=== PATIENT | female | born 1965 | race Caucasian/White ===

== ENCOUNTER 2018-09-05 11:32 | Inpatient (IN) | payer MEDICAID ==
[~2018-09-05] VITALS: Ht 160 cm; Wt 93.9 kg
--- NOTE | 2018-09-05 11:43 | NUR ---
PT AMBULATES TO BED 8
--- NOTE | 2018-09-05 11:45 | NUR ---
C/O FEVER & COUGH X 2 WEEKS. SEEN AT ER [facility] 4 DAYS AGO GOT PHENERGAN , PREDNISONE & IBUPROFEN . PT STATED MED DON'T HELP & C/O LEFT EAR & LEFT NECK PAIN. MED HX: DENIES
[2018-09-05 12:04] VITALS: BP 122/74
--- NOTE | 2018-09-05 12:11 | NUR ---
Patient being evaluated by physician at bedside.
[2018-09-05] MEDS ORDERED: NACL 0.9% 1,000 ML IV SCH (12:16)
[2018-09-05] MEDS ORDERED: ALBUTEROL 0.083% 2.5 MG/3 ML NEBU INH ONE (12:20)
[2018-09-05] MEDS ORDERED: IPRATROPIUM 0.02% 0.5 MG/2.5 ML NEBU INH ONE (12:20)
[2018-09-05] MEDS ORDERED: ACETAMINOPHEN 325 MG TAB PO ONE (12:40)
--- NOTE | 2018-09-05 12:52 | NUR ---
LAB AT BEDSIDE.
[2018-09-05 13:17] LABS: BASOPHILS % (AUTO) 0.3 % (0.0-2.0); HEMATOCRIT 46.3 % (36-48); HEMOGLOBIN 15.3 g/dL (12.0-16.0); LYMPHOCYTES # (AUTO) 2.1 K/uL (2.5-16.5); LYMPHOCYTES % (AUTO) 22.8 % (20.5-51.1); MEAN CORPUSCULAR HEMOGLOBIN 29 pg (27-31); MEAN CORPUSCULAR HGB CONC 33 g/dL (33-37); MEAN CORPUSCULAR VOLUME 86.8 fL (80-94); MONOCYTES # (AUTO) 0.5 K/uL (0.8-1.0); MONOCYTES % (AUTO) 5.8 % (1.7-9.3); NEUTROPHILS # (AUTO) 6.6 K/uL (1.8-7.7); NEUTROPHILS % (AUTO) 71.1 % (42.2-75.2); PLATELET COUNT (AUTO) 169 K/uL (140-450); RED BLOOD CELL COUNT(AUTO) 5.34 MIL/uL (4.20-5.40); RED CELL DISTRIBUTION WIDTH 14.2 % (11.6-13.7); WHITE BLOOD COUNT (AUTO) 9.2 K/uL (4.8-10.8)
[2018-09-05 13:28] LABS: ANION GAP 12.3 (8-16); CARBON DIOXIDE 29.4 mmol/L (21-32); CREATININE 0.9 mg/dL (0.6-1.3); POTASSIUM 3.7 mmol/L (3.5-5.1)
[2018-09-05 13:29] LABS: PROTHROMBIN TIME 9.9 secs (10.8-13.4)
--- NOTE | 2018-09-05 13:30 | NUR ---
T102.9, PULSE OX 90% WITH NC [address] ECHEVERRIA[address]
[2018-09-05 13:33] LABS: ALBUMIN 3.1 g/dL (3.4-5.0); TOTAL BILIRUBIN 0.7 mg/dL (0.0-1.0)
[2018-09-05 13:35] LABS: APPEARANCE,URINE HAZY (CLEAR); BILIRUBIN,URINE NEGATIVE (NEGATIVE); BLOOD, URINE NEGATIVE (NEGATIVE); COLOR,URINE ORANGE (YELLOW); LEUKOCYTE ESTERASE ,URINE NEGATIVE (NEGATIVE); NITRITE, URINE NEGATIVE (NEGATIVE); PH,URINE 7.5 (5.0-9.0); UGLUCOSE NEGATIVE (NEGATIVE)
[2018-09-05 13:40] LABS: RBC,URINE 0-5 (RARE) /HPF (0-5)
[2018-09-05 13:41] LABS: WBC,URINE 0-5 (RARE) /HPF (0-5)
[2018-09-05] MEDS ORDERED: AZITHROMYCIN 500 MG in DEXTROSE 5% 250 ML IV ONE (13:50)
[2018-09-05] MEDS ORDERED: ALBUTEROL SULFATE/IPRATROPIU 3 ML SOL IH PRN (14:00)
[2018-09-05] MEDS ORDERED: MORPHINE SULFATE 2 MG/ML SYR IVP PRN (14:00)
[2018-09-05] MEDS ORDERED: HYDROcodone/APAP 7.5/325 MG 1 TAB PO PRN (14:00)
[2018-09-05] MEDS ORDERED: ACETAMINOPHEN 325 MG TAB PO PRN (14:00)
[2018-09-05] MEDS ORDERED: cefTRIAXone 1,000 MG VIAL ONE (14:05)
[2018-09-05] MEDS ORDERED: methylPREDNISolone SS 125 MG in WATER STERILE 2 ML IM ONE (14:05)
[2018-09-05] MEDS ORDERED: AZITHROMYCIN 500 MG INJ VIAL IV ONE (14:05)
--- NOTE | 2018-09-05 14:33 | NUR ---
PT TAKEN TO TELE FLOOR BY RN JOHN AND EMT MARK ANTHONY
[2018-09-05] MEDS ORDERED: KETOROLAC 15 MG/ML VIAL IVP ONE (14:40)
[2018-09-05] MEDS ORDERED: [UNRECOGNIZED DRUG - OTHER] (14:43)
--- NOTE | 2018-09-05 14:43 | NUR ---
Patient will be admitted to care of DR DAVIS. Admited to TELE. Will go to room 120B. Belongings list completed. Report to KADI WHITLOCK.
[2018-09-05] MEDS: NACL 0.9% 1,000 ML IV SCH (14:50)
[2018-09-05 14:52] LABS: CHOL/HDL RATIO 3.3 (1-4.5); THYROID STIMULATING HORMONE 0.28 uIU/mL (0.34-3.74)
[2018-09-05 14:58] LABS: BARBITURATE, URINE NEG. ng/ml (NEG <=200); BENZODIAZEPINE, URINE NEG. ng/mL (NEG <=200); CANNABINOID, URINE NEG. ng/mL (NEG <=50); COCAINE, URINE NEG. ng/mL (NEG <=300); OPIATE, URINE NEG. ng/mL (NEG <=2000); PHENCYCLIDINE SCREEN,URINE NEG. ng/mL (NEG <=25)
[2018-09-05 15:00] VITALS: BP 100/55
[2018-09-05] MEDS ORDERED: methylPREDNISolone SS 125 MG/2 ML VIAL IVP SCH (15:00)
--- NOTE | 2018-09-05 15:00 | NUR ---
RECEIVED PT REPORT FROM ER NURSE, LIZETH. PT IS AMB WITH MIN ASSIST, AAOX4. MRSA SWAB DONE. INTRODUCED SELF, ORIENTED PATIENT AND DAUGHTER TO ROOM, UPDATED BOARD. DX: SEPSIS, PNA, HYPOXIA RESPIRATORY FAILURE. ON 3LPM VIA N/C, NO S/S OF DISTRESS AT THIS TIME. IV CATH NOTED TO THE LEFT AC, 20 GAUGE, PATENT AND INTACT. SKIN INTACT, PLACED PT ON TELE. BED IN THE LOWEST POSITION, CALL LIGHT WITHIN REACH. WILL CONTINUE TO MONITOR.
[2018-09-05] MEDS ORDERED: SODIUM PHOS / POTASSIUM PHOS 1 PKT PDR PO SCH (15:17)
--- NOTE | 2018-09-05 15:30 | NUR ---
OFFERED ARMATURE WINDER REPAIRER PHONE. PT PREFERS DAUGHTER TO TRANSLATE. ADMISSION QUESTION ANSWERED BY PT AND HER DAUGHTER. PT DENIES ANY MED HX, EX TUBAL LIGATION.
[2018-09-05] MEDS ORDERED: DEXTROSE 50% 50 ML SYR IVP PRN (15:45)
[2018-09-05] MEDS: BLOOD GLUCOSE MONITORING 1 DEV DEV FS SCH ×2 (16:06→20:25)
[2018-09-05] MEDS: SODIUM PHOS / POTASSIUM PHOS 1 PKT PDR PO SCH (17:25)
[2018-09-05] MEDS: ONDANSETRON 4 MG/2 ML VIAL IM/IVP PRN (17:58)
--- NOTE | 2018-09-05 18:20 | NUR ---
PT C/O NAUSEA, ZOFRAN GIVEN. PT DOESN'T WANT TO EAT. PROVIDED PT WITH ANOTHER FRUIT CUPS. PT ONLY ATE THE FRUITS.
--- NOTE | 2018-09-05 19:25 | NUR ---
ENDORSED PT TO POUCH MAKER RN. PT IN STABLE CONDITION.
--- NOTE | 2018-09-05 19:26 | NUR ---
RECEIVED REPORT FROM KAMLESH WALLIS FOR CONTINUITY OF CARE. PT A/OX4 ON ROOM AIR, CYPRIOT SPEAKING. PT IS ABLE TO MAKE NEEDS KNOWN, ABLE TO FOLLOW COMMANDS. PT AMBULATES WITH STEADY GAIT AND SKIN IS INTACT. PT HAS A 20G IV TO AC, ASYMPTOMATIC AND INTACT. VITAL SIGNS WITHIN NORMAL LIMITS. PT STABLE, DENIES HAVING ANY PAIN, NO SIGNS OF DISTRESS NOTED AT THIS TIME. PT POSITIONED FOR COMFORT. BED IN LOWEST POSITION, BED ALARM ON. WILL CONTINUE TO MONITOR.
[2018-09-05] MEDS: ALBUTEROL SULFATE/IPRATROPIU 3 ML SOL IH SCH (19:27)
[2018-09-05] MEDS: BUDESONIDE 0.5 MG/2 ML NEBU INH SCH (19:27)
[2018-09-05 20:00] VITALS: BP 93/56
--- NOTE | 2018-09-05 20:25 | NUR ---
CHECKED PT BLOOD SUGAR. IT IS 248, AT THIS TIME. PT REFUSES INSULIN ADMINISTRATION. EXPLAINED INSULIN WILL HELP BRING BLOOD SUGAR LEVEL BACK TO NORMAL BECAUSE IT IS ELEVATED NOW. PT THEN STATES SHE HAS BEEN EATING FRUIT JUST ABOUT 5 MINUTES AGO AND THAT IS PROBABLY THE REASON IT IS HIGH BUT THAT SHE IS NOT DIABETIC AND DOES NOT WANT TO TAKE INSULIN.
[2018-09-05] MEDS ORDERED: methylPREDNISolone SS 125 MG/2 ML VIAL IVP ONE (21:00)
--- NOTE | 2018-09-05 22:15 | NUR ---
TURNED TEMPERATURE IN ROOM DOWN BECAUSE PT WAS SWEATING AND UNCOMFORTABLE.
[2018-09-05] MEDS: methylPREDNISolone SS 125 MG/2 ML VIAL IVP SCH (23:30)
[2018-09-06] VITALS: BP 87/48
--- NOTE | 2018-09-06 | NUR ---
VITAL SIGNS WITHIN NORMAL LIMITS. PT STABLE, DENIES HAVING ANY PAIN, NO SIGNS OF DISTRESS NOTED AT THIS TIME. PT POSITIONED FOR COMFORT. BED IN LOWEST POSITION, BED ALARM ON. WILL CONTINUE TO MONITOR.
[2018-09-06] MEDS: NACL 0.9% 1,000 ML IV SCH ×3 (00:40→16:40)
[2018-09-06] MEDS ORDERED: INFLUENZA VIRUS VACCINE QUAD 0.5 ML SYR IMVAC PRN (00:50)
[2018-09-06] MEDS ORDERED: PNEUMOCOCCAL VACCINE 23 MCG/0.5 ML VIAL IMVAC PRN (00:50)
--- NOTE | 2018-09-06 02:05 | NUR ---
HELPED PT TO RESTROOM AND BACK TO BED. PT TOLERATED WELL.
[2018-09-06 04:00] VITALS: BP 88/49
[2018-09-06 06:07] LABS: HEMATOCRIT 43.8 % (36-48); HEMOGLOBIN 14.4 g/dL (12.0-16.0); MEAN CORPUSCULAR HEMOGLOBIN 29 pg (27-31); MEAN CORPUSCULAR HGB CONC 33 g/dL (33-37); MEAN CORPUSCULAR VOLUME 87.7 fL (80-94); PLATELET COUNT (AUTO) 177 K/uL (140-450); RED BLOOD CELL COUNT(AUTO) 4.99 MIL/uL (4.20-5.40); RED CELL DISTRIBUTION WIDTH 14.1 % (11.6-13.7); WHITE BLOOD COUNT (AUTO) 7.5 K/uL (4.8-10.8)
[2018-09-06 06:13] LABS: T4 (THYROXINE) 7.9 ug/dL (4.5-12.0)
[2018-09-06] MEDS: methylPREDNISolone SS 125 MG/2 ML VIAL IVP SCH (06:21)
[2018-09-06] MEDS: BLOOD GLUCOSE MONITORING 1 DEV DEV FS SCH ×4 (06:21→20:59)
--- NOTE | 2018-09-06 06:25 | NUR ---
ADMINISTERED SCHEDULED MEDICATIONS, PT TOLERATED WELL.
[2018-09-06 06:34] LABS: ANION GAP 11.5 (8-16); CARBON DIOXIDE 28.8 mmol/L (21-32); CREATININE 0.7 mg/dL (0.6-1.3); POTASSIUM 4.3 mmol/L (3.5-5.1)
[2018-09-06] MEDS: ALBUTEROL SULFATE/IPRATROPIU 3 ML SOL IH SCH ×3 (06:37→18:48)
[2018-09-06 06:44] LABS: MAGNESIUM 2.3 mg/dL (1.8-2.4); PHOSPHORUS 3.7 mg/dL (2.5-4.9)
[2018-09-06] MEDS: BUDESONIDE 0.5 MG/2 ML NEBU INH SCH ×2 (06:45→18:48)
[2018-09-06 06:49] LABS: LYMPHOCYTES % (MANUAL) 17 % (20-46); MONOCYTES % (MANUAL) 3 % (5-12)
--- NOTE | 2018-09-06 07:50 | NUR ---
ENDORSED PT TO DAY SHIFT KAMLESH SHRESTHA FOR CONTINUITY OF CARE. PT IN STABLE CONDITION. Addendum: 09/06/18 at 0750 by Marita Wilson RN ENDORSED PT TO DAY SHIFT KAMLESH SHRESTHA.
--- NOTE | 2018-09-06 07:53 | NUR ---
RECEIVED BEDSIDE REPORT FROM PRINT LINE OPERATOR RN FOR CONTINUITY OF CARE. PT A/OX4, PRIMARILY COMORAN SPEAKING. DENIES PAIN. C/O COUGH WITH SPUTUM PRODUCTION "SOMETIMES". PATIENT NOTED TO BE COUGHING EVERY MINUTE. PT STATES SHE IS UNABLE TO EAT BREAKFAST DUE TO THE COUGHING. WILL NOTIFY PER PRINT LINE OPERATOR, PT IS AMBULATORY. SKIN INTACT. LUNG SOUNDS DIMINISHED. HEART RHYTHM REGULAR. IV SITE PATENT AND ASYMPTOMATIC, INFUSING IVF PER MD ORDERS. ALL SAFETY PRECAUTIONS IN PLACE. WILL CONTINUE TO MONITOR.
[2018-09-06 08:00] VITALS: BP 97/60
--- NOTE | 2018-09-06 08:14 | NUR ---
NOTIFIED DR. BLAKELY THAT PATIENT IS COUGHING A LOT. DR. BLAKELY TO PLACE ORDERS.
--- NOTE | 2018-09-06 08:22 | NUR ---
PATIENT HAS BEEN SCREENED AND CATEGORIZED HIGH NUTRITION RISK. PATIENT WILL BE SEEN WITHIN 1-2 DAYS OF ADMISSION. 09/06/18-09/07/[address]
[2018-09-06] MEDS: methylPREDNISolone SS 40 MG/ML VIAL IVP SCH ×2 (10:01→20:46)
[2018-09-06] MEDS: SODIUM PHOS / POTASSIUM PHOS 1 PKT PDR PO SCH (10:02)
[2018-09-06] MEDS: guaiFENesin DM 200/20 MG-10 ML 10 ML UDC PO PRN (10:02)
--- NOTE | 2018-09-06 10:02 | NUR ---
ROBITUSSIN DM ADMINISTERED FOR PT C/O COUGH.
[2018-09-06] MEDS: LACTOBACILLUS RHAMNOSUS GG 1 EACH CAP PO SCH (10:03)
--- NOTE | 2018-09-06 10:06 | NUR ---
NOTIFIED RADIOLOGY THAT PATIENT ATE 95% BREAKFAST AROUND 8AM. THEY WILL GET PT FOR CT CHEST AROUND 12PM. HAVE NOTIFIED DAUGHTER AT BEDSIDE. OBTAINED CONSENT VIA DAUGHTER TRANSLATING AT BEDSIDE. PT PREFERS DAUGHTER TO TRANSLATE.
--- NOTE | 2018-09-06 10:20 | NUR ---
CALLED RT REGARDING SPUTUM INDUCTION ORDER. RT IS AWARE. EXPLAINED OBTAINING SPUTUM CULTURE PROCESS TO DAUGHTER AT BEDSIDE. DAUGHTER HAS EXPLAINED TO PATIENT.
--- NOTE | 2018-09-06 11:00 | NUR ---
PT STATES THAT COUGH IS "BETTER". INTERMITTENT COUGHING STILL PRESENT.
--- NOTE | 2018-09-06 11:39 | NUR ---
09/06/18 RD INITIAL ASSESSMENT COMPLETED PLEASE REFER TO NUTRITION ASSESSMENT UNDER CARE ACTIVITY FOR ESTIMATED NUTRITIONAL NEEDS. RD RECOMMENDATIONS: 1. CONTINUE CCHO 60 GM DIET TOLERATED 2. RECOMMEND CHANGING DIET TO HIGH FIBER REGULAR WHEN GLUCOSE LAB VALUES TREND WNL 3. RD TO FOLLOW-UP 5-7 DAYS, LOW RISK REGINA CARMICHAEL RD
[2018-09-06] MEDS: INSULIN LISPRO SLIDING SCALE 100 UNITS/ML VIAL SUBQ PRN ×3 (11:52→21:00)
[2018-09-06 12:00] VITALS: BP 96/54
--- NOTE | 2018-09-06 13:20 | NUR ---
HAD DAUGHTER INSTRUCT PT ON GIVING SPUTUM SAMPLE
[2018-09-06] MEDS ORDERED: AZITHROMYCIN 250 MG TAB PO SCH (15:00)
[2018-09-06 16:00] VITALS: BP 94/54
--- NOTE | 2018-09-06 19:15 | NUR ---
ENDORSED POC TO ELECTRONIC SCIENCE TEACHER RN. PT IN STABLE CONDITION.
--- NOTE | 2018-09-06 19:16 | NUR ---
RECEIVED BEDSIDE REPORT FROM DAY SHIFT NURSE DINO RN, PT STABLE, NO DISTRESS NOTED, IV TO L AC 20G PATENT INTACT, SL AND L HAND 22G PATENT, INTACT, INFUSING NS @ 100ML/HR, PT ON 6LPM O2 VIA OXYMIZER, NO SOB NOTED, PT SAT 88-91%, INITIAL ASSESSMENT DONE, ALL SAFETY PRECAUTION MET, CALL LIGHT WITHIN REACH, WILL CONTINUE TO MONITOR.,
--- NOTE | 2018-09-06 19:30 | NUR ---
sputum was sent to lab
--- NOTE | 2018-09-06 19:59 | NUR ---
PT PO2 89% AND PT IS TACHYPNEIC, BUT STATED HAVING NO SOB. DR. WONG NOTIFIED, STATED UNDERSTANDING, AWAITING CT, TO CONTINUE TO MONITOR PT.
[2018-09-06 20:00] VITALS: BP 106/58
--- NOTE | 2018-09-06 20:06 | NUR ---
PT LEFT UNIT TO GO TO CT, IN STABLE CONDITION.
--- NOTE | 2018-09-06 20:21 | NUR ---
PT ARRIVED BACK FROM CT IN STABLE CONDITION, WILL CONTINUE TO MONITOR.
[2018-09-06] MEDS ORDERED: methylPREDNISolone SS 40 MG/ML VIAL IVP SCH (23:00)
--- NOTE | 2018-09-06 23:40 | NUR ---
PT RESTING ON BED, NO DISTRESS NOTED, V/S TAKEN, WITHIN PT BASELINE, CALL LIGHT WITHIN REACH, WILL CONTINUE TO MONITOR.
[2018-09-07] VITALS: BP 99/48
--- NOTE | 2018-09-07 02:44 | NUR ---
CHECKED ON PT, PT STATED UNABLE TO SIT AND WANTS TO SIT AT BEDSIDE CHAIR, ASSIST PT TO BEDSIDE CHAIR, PT TOLERATED WELL, CALL LIGHT WITHIN REACH, WILL CONTINUE TO MONITOR.
[2018-09-07] MEDS: guaiFENesin DM 200/20 MG-10 ML 10 ML UDC PO PRN ×2 (03:04→20:31)
[2018-09-07 04:00] VITALS: BP 94/52
[2018-09-07] MEDS: ONDANSETRON 4 MG/2 ML VIAL IM/IVP PRN ×2 (04:10→09:02)
--- NOTE | 2018-09-07 04:11 | NUR ---
PT C/O NAUSEA, NAUSEA MEDICATION ORDERED ADMINISTERED, PT TOLERATED WELL, CALL LIGHT WITHIN REACH, WILL CONTINUE TO MONITOR.
[2018-09-07] MEDS: DOCUSATE SODIUM 100 MG GELCAP PO PRN (04:12)
[2018-09-07] MEDS: BLOOD GLUCOSE MONITORING 1 DEV DEV FS SCH ×4 (05:45→20:30)
[2018-09-07] MEDS: NACL 0.9% 1,000 ML IV SCH (06:47)
[2018-09-07 07:10] LABS: BASOPHILS % (AUTO) 0.2 % (0.0-2.0); HEMATOCRIT 40.2 % (36-48); LYMPHOCYTES # (AUTO) 1.2 K/uL (2.5-16.5); LYMPHOCYTES % (AUTO) 10.1 % (20.5-51.1); MEAN CORPUSCULAR HEMOGLOBIN 29 pg (27-31); MEAN CORPUSCULAR HGB CONC 32 g/dL (33-37); MEAN CORPUSCULAR VOLUME 88.5 fL (80-94); MONOCYTES # (AUTO) 0.7 K/uL (0.8-1.0); MONOCYTES % (AUTO) 5.7 % (1.7-9.3); NEUTROPHILS # (AUTO) 9.9 K/uL (1.8-7.7); PLATELET COUNT (AUTO) 192 K/uL (140-450); RED BLOOD CELL COUNT(AUTO) 4.55 MIL/uL (4.20-5.40); RED CELL DISTRIBUTION WIDTH 14.3 % (11.6-13.7); WHITE BLOOD COUNT (AUTO) 11.8 K/uL (4.8-10.8)
[2018-09-07] MEDS: BUDESONIDE 0.5 MG/2 ML NEBU INH SCH ×2 (07:20→19:16)
[2018-09-07] MEDS: ALBUTEROL SULFATE/IPRATROPIU 3 ML SOL IH SCH ×3 (07:20→19:18)
--- NOTE | 2018-09-07 07:20 | NUR ---
SATURATION 87% ON SUPPLEMENTAL OXYGEN AT 7 LPM VIA OXYMIZER POST [facility] THERAPY INCREASED FIO2 TO 10 LPM WEBLOGIC ADMINISTRATOR TO NOTIFY DAY/RN
[2018-09-07 07:25] LABS: ANION GAP 10.8 (8-16); CARBON DIOXIDE 26.9 mmol/L (21-32); CREATININE 0.8 mg/dL (0.6-1.3); POTASSIUM 3.7 mmol/L (3.5-5.1)
--- NOTE | 2018-09-07 07:27 | NUR ---
ENDORSED PT TO DAY SHIFT NURSE HENRIETTA WHITLOCK, PT IN STABLE CONDITION NO DISTRESS NOTED.
[2018-09-07 07:29] LABS: MAGNESIUM 2.1 mg/dL (1.8-2.4); PHOSPHORUS 3.8 mg/dL (2.5-4.9)
--- NOTE | 2018-09-07 07:30 | NUR ---
RECEIVED BEDSIDE REPORT FROM MANAGER LICENSING NURSE LUZ MARINA. PATIENT AAOX4. PATIENT ON OXYMIZER 6 L, NO DISTRESS NOTED. PATIENT AMBULATORY. IV ON LAC 20 G AND LHAND 22 G BOTH CLEAN DRY INTACT AND PATENT. INFUSING NS AT 100. SKIN INTACT. ON TELE MONITOR AND STANDARD PRECAUTIONS. BED IN LOW POSITION, CALL LIGHT WITHIN REACH. WILL CONTINUE TO MONITOR.
[2018-09-07 08:00] VITALS: BP 103/52
[2018-09-07] MEDS: LACTOBACILLUS RHAMNOSUS GG 1 EACH CAP PO SCH (08:55)
--- NOTE | 2018-09-07 09:09 | NUR ---
CALLED DR JASON BLAKELY REVIEWED REQUEST FOR SERVICE ORDER: PLEASE ASSESS PATIENTS 02 SAT SITTING, STANDING AND AMBULATING EXPLAINED TO MD THAT WE DON'T HAVE A POLICY OR DOCUMENTATION TEMPLATE REQUESTED MD TO SEND ORDER TO PHYSICAL THERAPY AND THAT THEY ARE ON FLOOR AT THIS TIME
--- NOTE | 2018-09-07 09:10 | NUR ---
ADMINISTERED SCHEDULED MEDS AND ZOFRAN PRN NAUSEA. PATIENT TOLERATED WELL. WILL CONTINUE TO MONITOR.
[2018-09-07 12:00] VITALS: BP 119/69
--- NOTE | 2018-09-07 12:00 | NUR ---
FAMILY AT BEDSIDE. ASSISTED PATIENT TO RESTROOM. PATIENT FELT TIRED AFTER RESTROOM. MADE SURE PATIENTS BREATHING WAS BACK TO NORMAL WITH NO DISTRESS. PATIENT LAID ON BED WITH HOB UP. WILL CONTINUE TO MONITOR.
[2018-09-07 16:00] VITALS: BP 102/51
[2018-09-07] MEDS ORDERED: AZITHROMYCIN 250 MG in DEXTROSE 5% 250 ML IV SCH (16:00)
--- NOTE | 2018-09-07 16:25 | NUR ---
FAMILY AT BEDSIDE. NO DISTRESS AT THIS TIME, ON OXIMIZER 10 L. WILL CONTINUE TO MONITOR.
--- NOTE | 2018-09-07 17:00 | NUR ---
EDUCATED PATIENT ON HOW TO USE INCENTIVE SPIROMETER WITH FAMILY AT BEDSIDE TRANSLATING. ANSWERED ALL QUESTIONS OF PATIENT. WILL CONTINUE TO MONITOR.
--- NOTE | 2018-09-07 17:21 | NUR ---
PATIENT AMBULATED TO BATHROOM. NOW BACK IN BED WITH NO DISTRESS NOTED W OXIMIZER AT 10 L. WILL CONTINUE TO MONITOR.
--- NOTE | 2018-09-07 19:12 | NUR ---
GAVE REPORT TO ROTARY BAR OPERATOR NURSE TAMMY. PATIENT ENDORSED IN STABLE CONDITION.
--- NOTE | 2018-09-07 19:13 | NUR ---
REPORT RECEIVED FROM AM NURSE AT BEDSIDE. PT IN STABLE CONDITION. AAOX4. INTRODUCED SELF TO PT. BOARD UPDATED. NO COMPLAINTS OF PAIN. NO SOB ON 10L O2 VIA OXIMIZER. AFEBRILE. IV SITE L HAND 22G RUNNING NS@10ML/HR TKO AND L AC 20G BOTH PATENT AND INTACT. SKIN WARM, DRY, AND INTACT WITH NO OPEN WOUNDS. BED LOCKED IN LOW POSITION. CALL AMBRIZ WITHIN REACH. SAFETY PRECAUTIONS IN PLACE.
[2018-09-07 20:00] VITALS: BP 100/44
--- NOTE | 2018-09-07 20:30 | NUR ---
ROBITUSSIN GIVEN FOR COUGH. BS 103. NO INSULIN COVERAGE NEEDED.
--- NOTE | 2018-09-07 23:30 | NUR ---
PT HAS COMPLAINTS OF TROUBLE BREATHING. MD NOTIFIED. MD ORDERED ABG ON ROOM AIR.
[2018-09-08] VITALS: BP 98/50
--- NOTE | 2018-09-08 00:15 | NUR ---
ABG DONE BY RT. CRITICAL LAB VALUES REPORTED TO MD. NEW ORDERS OF BNP AND CHEST XR TO BE DONE IN THE AM.
[2018-09-08] MEDS: ALBUTEROL SULFATE/IPRATROPIU 3 ML SOL IH PRN ×3 (00:35→23:08)
--- NOTE | 2018-09-08 01:15 | NUR ---
PT ATTEMPTING TO SLEEP AND IS AROUSABLE. NO S/S OF DISTRESS NOTED. PT BREATHING IS SLIGHTLY LABORED. MD NOTIFIED AND ORDERED A CHEST XR AND BNP FOR THE AM. WILL FOLLOW UP AFTER RESULTS. WILL CONTINUE TO MONITOR.
--- NOTE | 2018-09-08 03:30 | NUR ---
PT HAS COMPLAINTS OF DIFFICULTY BREATHING. MD NOTIFIED. ORDERED TO KEEP PATIENT SITTING UP AT 80-90 DEGREES. PT NOW IS LESS DISTRESS AFTER MD ORDERS.
[2018-09-08 04:00] VITALS: BP 104/59
[2018-09-08] MEDS: BLOOD GLUCOSE MONITORING 1 DEV DEV FS SCH ×4 (05:32→21:09)
--- NOTE | 2018-09-08 05:32 | NUR ---
BS 110. NO INSULIN COVERAGE NEEDED.
[2018-09-08 05:59] LABS: HEMATOCRIT 39.7 % (36-48); LYMPHOCYTES # (AUTO) 1.7 K/uL (2.5-16.5); LYMPHOCYTES % (AUTO) 16.6 % (20.5-51.1); MEAN CORPUSCULAR HEMOGLOBIN 29 pg (27-31); MEAN CORPUSCULAR HGB CONC 33 g/dL (33-37); MONOCYTES # (AUTO) 0.6 K/uL (0.8-1.0); MONOCYTES % (AUTO) 6.3 % (1.7-9.3); NEUTROPHILS # (AUTO) 7.8 K/uL (1.8-7.7); NEUTROPHILS % (AUTO) 77.1 % (42.2-75.2); PLATELET COUNT (AUTO) 225 K/uL (140-450); RED BLOOD CELL COUNT(AUTO) 4.51 MIL/uL (4.20-5.40); RED CELL DISTRIBUTION WIDTH 13.9 % (11.6-13.7); WHITE BLOOD COUNT (AUTO) 10.1 K/uL (4.8-10.8)
[2018-09-08] MEDS: NACL 0.9% 1,000 ML IV SCH (06:06)
[2018-09-08 06:50] LABS: ANION GAP 10.1 (8-16); CARBON DIOXIDE 29.1 mmol/L (21-32); CREATININE 0.8 mg/dL (0.6-1.3); POTASSIUM 3.2 mmol/L (3.5-5.1)
[2018-09-08 06:56] LABS: PHOSPHORUS 3.9 mg/dL (2.5-4.9)
--- NOTE | 2018-09-08 07:10 | NUR ---
REPORT GIVEN TO AM NURSE AT BEDSIDE. PT IN STABLE CONDITION.
--- NOTE | 2018-09-08 07:11 | NUR ---
RECEIVED REPORT FROM HEALTH SCIENCE WRITER NURSE. PT IN STABLE CONDITION. RESPIRATIONS EVEN AND UNLABORED. O2 OXYMIZER AT 10L. IV INTACT AND PATENT. SAFETY MEASURES IN PLACE. BED IN LOW POSITION. BED ALARM ON. CALL LIGHT AT BEDSIDE. WILL CONTINUE TO MONITOR.
[2018-09-08] MEDS: BUDESONIDE 0.5 MG/2 ML NEBU INH SCH ×2 (07:30→19:34)
[2018-09-08] MEDS: ALBUTEROL SULFATE/IPRATROPIU 3 ML SOL IH SCH ×4 (07:30→19:34)
[2018-09-08 08:00] VITALS: BP 105/56
[2018-09-08] MEDS: guaiFENesin DM 200/20 MG-10 ML 10 ML UDC PO PRN ×3 (08:15→23:31)
--- NOTE | 2018-09-08 08:15 | NUR ---
GAVE GUAIFENESIN (PRN ORDER) FOR COUGH AT PT REQUEST. WILL CONTINUE TO MONITOR.
--- NOTE | 2018-09-08 08:52 | NUR ---
ASSISTED PT WITH BEDPAN. O2 SAT DROPPED TO 86% UPON MOVEMENT THEN BACK UP TO 92 AFTER RESTING. PT IN STABLE CONDITION. WILL CONTINUE TO MONITOR.
[2018-09-08] MEDS ORDERED: POTASSIUM CHLORIDE 40 MEQ, LIDOCAINE MPF 1% - 5 mL VIAL 25 MG in NACL 0.9% 250 ML IV ONE (10:35)
--- NOTE | 2018-09-08 10:44 | NUR ---
ASSISTED PT WITH BEDPAN. O2 SAT DROPPED TO 85% UPON MOVEMENT THEN BACK UP TO 92 AFTER RESTING. PT IN STABLE CONDITION. WILL CONTINUE TO MONITOR.
[2018-09-08] MEDS ORDERED: POTASSIUM CHLORIDE 40 MEQ, LIDOCAINE 1% 25 MG in NACL 0.9% 250 ML IV ONE (10:45)
[2018-09-08] MEDS: LACTOBACILLUS RHAMNOSUS GG 1 EACH CAP PO SCH (10:56)
[2018-09-08 12:00] VITALS: BP 123/70
--- NOTE | 2018-09-08 12:23 | NUR ---
PT LYING IN BED IN STABLE CONDITION. FAMILY AT BEDSIDE. WILL CONTINUE TO MONITOR. BED IN LOW POSITION.
[2018-09-08] MEDS: PIPER/TAZO 3.375GM/D5W PREMIX 50 ML IV SCH ×2 (12:47→18:16)
[2018-09-08] MEDS: ONDANSETRON 4 MG/2 ML VIAL IM/IVP PRN (12:47)
--- NOTE | 2018-09-08 13:21 | NUR ---
GOT SOME QUOTES FOR OXYGEN FOR HOME FOR PRIVATE PAY.. [facility] [phone]. TO RENT THE CONCENTRATOR IS $250 DEPOSIT AND THEN $250/MO. FOR TANK, $75 DEPOSIT AND $75 /MO. REFILL FOR TANK $23 OR DELIVERED $32. [facility], [place] [phone] CONCENTRATOR $150/MO INCLUDING 1 TANK $10.00 FOR EACH ADDITIONAL TANK. [facility], DOESN'T SERVICE THIS AREA LEFT MESSAGE WITH [facility].[phone].
--- NOTE | 2018-09-08 14:40 | NUR ---
ASSISTED PT TO RESTROOM WITH O2 EXTENSION TUBING. PT TOLERATED WELL. PT IN STABLE CONDITION. WILL CONTINUE TO MONITOR.
[2018-09-08 16:00] VITALS: BP 120/73
--- NOTE | 2018-09-08 16:36 | NUR ---
REPOSITIONED, PT TOLERATED WELL. WILL CONTINUE TO MONITOR. BED IN LOW POSITION.
--- NOTE | 2018-09-08 18:24 | NUR ---
ASSISTED PT WITH BEDPAN. PT IN STABLE CONDITION. WILL CONTINUE TO MONITOR.
--- NOTE | 2018-09-08 19:25 | NUR ---
GAVE REPORT TO DATABASE REPORT WRITER NURSE FOR CONTINUITY OF CARE. PT IN STABLE CONDITION.
--- NOTE | 2018-09-08 19:25 | NUR ---
RECEIVED BEDSIDE REPORT FROM KAMLESH JACOBSON, PATIENT IN BED, ON OXYMIZER 9 L, LUNG SOUNDS DIMINISHED, IV IN LEFT HAND 22 G, INFUSING K AT 68 ML/HR. GB 123, V/S TAKEN ALL WITHIN BASELINE, FAMILY AT BEDSIDE QUESTIONS ANSWERED. EXPLAINED PLAN OF CARE UPDATED BORED WILL CONTINUE TO MONITOR.
[2018-09-08 20:00] VITALS: BP 123/70
--- NOTE | 2018-09-08 21:00 | NUR ---
K COMPLETED, IVF NS INFUSING AT 10 ML/HR.
--- NOTE | 2018-09-08 22:00 | NUR ---
PATIENT REQUEST SOMETHING TO SLEEP, SPOKE WITH DR WONG, STATED CANT GIVE ANYTHING DUE TO COMPROMISED RESP SYSTEM. PATIENT VERBALIZED UNDERSTANDING.
[2018-09-08] MEDS: AZITHROMYCIN 250 MG in DEXTROSE 5% 250 ML IV SCH (23:30)
--- NOTE | 2018-09-08 23:32 | NUR ---
PATIENT C/O COUGH WILL GIVE ROBITUSSIN. PATIENT AWARE OF NEEDED SPUTUM SAMPLE. WILL GIVE PATIENT ROCEPHIN AND WILL HANG ZITHROMAX AFTER ROCEPHIN COMPLETED. V/S TAKEN ALL WITHIN BASELINE.
[2018-09-08] MEDS ORDERED: cefTRIAXone 1,000 MG VIAL ONE (23:37)
[2018-09-09] VITALS: BP 125/60
--- NOTE | 2018-09-09 01:10 | NUR ---
GIVING DUE ZITHROMAX, WASTED 250 MG OUT OF 500 MG VIAL.
[2018-09-09] MEDS ORDERED: AZITHROMYCIN 500 MG INJ VIAL IV ONE (01:12)
--- NOTE | 2018-09-09 02:15 | NUR ---
PATIENT C/O FEELING NAUSEOUS WILL GIVE ZOFRAN.
[2018-09-09] MEDS: ONDANSETRON 4 MG/2 ML VIAL IM/IVP PRN ×4 (02:17→21:12)
--- NOTE | 2018-09-09 02:27 | NUR ---
SPUTUM SAMPLE COLLECTED AND SENT TO LAB.
[2018-09-09] MEDS: ALBUTEROL SULFATE/IPRATROPIU 3 ML SOL IH PRN (03:03)
--- NOTE | 2018-09-09 03:52 | NUR ---
R/T AT BEDSIDE, O2SAT WENT DOWN TO LOW 80'S, R/T PLACED PATIENT ON NON-REBREATHER MASK AT 15 L/MIN, PATIENT O2SAT 99%.
[2018-09-09 04:00] VITALS: BP 140/70
--- NOTE | 2018-09-09 04:01 | NUR ---
0350 PT SATS DROPPED TO 87 88%. INCREASED OXYMIZER TO 15L. NOT MUCH IMPROVEMENT WITH SATS. CHANGED TO NRB MASK AT 15L. SATS IMPROVED TO 97 TO 98%.
[2018-09-09] MEDS: NACL 0.9% 1,000 ML IV SCH (05:04)
[2018-09-09] MEDS: guaiFENesin DM 200/20 MG-10 ML 10 ML UDC PO PRN (06:05)
--- NOTE | 2018-09-09 06:08 | NUR ---
PATIENT C/O COUGH GAVE ROBITUSSIN. BG 108
[2018-09-09] MEDS: BLOOD GLUCOSE MONITORING 1 DEV DEV FS SCH ×4 (06:10→20:08)
[2018-09-09] MEDS: ALBUTEROL SULFATE/IPRATROPIU 3 ML SOL IH SCH ×4 (06:40→18:45)
[2018-09-09] MEDS: BUDESONIDE 0.5 MG/2 ML NEBU INH SCH ×2 (06:49→18:45)
[2018-09-09 07:14] LABS: BASOPHILS % (AUTO) 0.1 % (0.0-2.0); EOSINOPHILS % (AUTO) 0.1 % (0.0-4.0); HEMATOCRIT 41.2 % (36-48); HEMOGLOBIN 13.4 g/dL (12.0-16.0); LYMPHOCYTES # (AUTO) 1.3 K/uL (2.5-16.5); LYMPHOCYTES % (AUTO) 12.6 % (20.5-51.1); MEAN CORPUSCULAR HEMOGLOBIN 29 pg (27-31); MEAN CORPUSCULAR HGB CONC 33 g/dL (33-37); MEAN CORPUSCULAR VOLUME 87.9 fL (80-94); MONOCYTES # (AUTO) 0.5 K/uL (0.8-1.0); MONOCYTES % (AUTO) 4.5 % (1.7-9.3); NEUTROPHILS # (AUTO) 8.5 K/uL (1.8-7.7); NEUTROPHILS % (AUTO) 82.7 % (42.2-75.2); PLATELET COUNT (AUTO) 255 K/uL (140-450); RED BLOOD CELL COUNT(AUTO) 4.69 MIL/uL (4.20-5.40); RED CELL DISTRIBUTION WIDTH 14.1 % (11.6-13.7); WHITE BLOOD COUNT (AUTO) 10.2 K/uL (4.8-10.8)
[2018-09-09 07:28] LABS: ANION GAP 10.9 (8-16); CARBON DIOXIDE 27.3 mmol/L (21-32); CREATININE 0.6 mg/dL (0.6-1.3); POTASSIUM 3.2 mmol/L (3.5-5.1)
--- NOTE | 2018-09-09 07:37 | NUR ---
ENDORSED PT TO DAY SHIFT RN, PATIENT STABLE.
--- NOTE | 2018-09-09 07:40 | NUR ---
RECEIVED BEDSIDE REPORT FROM HOSPITAL AIDES AND ASSISTANTS TEACHER NURSE. PT IS AOX4. DENIES PAIN. C/O MINIMAL COUGHS. PT IS ON NONREBREATHER MASK 15L/MIN. RESPIRATION IS EVEN AND UNLABORED, SPO2 96%. IV ON L HAND 22G, INTACT AND PATENT, INFUSING PER MD ORDER. IV SITE IS CLEAN AND DRY. PT IS ABLE TO AMBULATE WITH ONE PERSON ASSIST. SKIN DRY, CLEAN AND INTACT. DISCUSSED PLAN OF CARE WITH PATIENT AND DAUGHTER, BOTH VERBALIZED UNDERSTANDING. SAFETY MEASURES ARE IN PLACE. BED IN HIGH-MICHAEL'S POSITION, AND CALL LIGHT WITHIN REACH.
[2018-09-09 07:57] LABS: MAGNESIUM 2.2 mg/dL (1.8-2.4); PHOSPHORUS 3.7 mg/dL (2.5-4.9)
[2018-09-09 08:00] VITALS: BP 99/47
--- NOTE | 2018-09-09 08:19 | NUR ---
PT C/O OF NAUSEA AND VOMITING. MEDICATED WITH PRN ZOFRAN. PT TOLERATED WELL. DAUGHTER REMAINS AT BEDSIDE.
--- NOTE | 2018-09-09 09:07 | NUR ---
CHANGE PT TO 50% VENTURI MASK SPO2 92-94
[2018-09-09] MEDS: LACTOBACILLUS RHAMNOSUS GG 1 EACH CAP PO SCH (09:22)
--- NOTE | 2018-09-09 09:23 | NUR ---
ADMINISTERED MED PER MD ORDER. PT TOLERATED WELL. PT IS ON VENTURI MASK, SPO2 91%. IS AT BEDSIDE.
--- NOTE | 2018-09-09 09:35 | NUR ---
CHANGED PT'S SOILED LINENS AND CHANGED PT INTO CLEAN YELLOW GROWN AND YELLOW SOCKS. NOTIFIED VEHICLE WASHER THAT PT IS STEADY IS UNSTEADY. INITIALED FALL PRECAUTION. POSTED SIGN AND TURNED ON BED ALARM. INSTRUCTED PT TO USE THE CALL LIGHT FOR ANY ASSISTANCE.
[2018-09-09] MEDS: guaiFENesin/CODEINE 100/10MG 5 ML UDC PO PRN ×2 (10:58→17:40)
--- NOTE | 2018-09-09 11:00 | NUR ---
PT C/O OF COUGHING FREQUENTLY. ADMINISTERED PRN ROBITUSSIN/CODEINE MED ORDER. PT TOLERATED WELL. IS AT BEDSIDE.
[2018-09-09 12:00] VITALS: BP 101/62
[2018-09-09] MEDS ORDERED: POTASSIUM CHLORIDE 40 MEQ, LIDOCAINE 1% 25 MG in NACL 0.9% 250 ML IV ONE (12:00)
--- NOTE | 2018-09-09 12:37 | NUR ---
CHECKED POTASSIUM LAB 3.2 PRIOR TO ADMINISTER. ADMINISTERED POTASSIUM IVPB PER MD ORDER. PATIENT IS RESTING AND IS AT BEDSIDE.
--- NOTE | 2018-09-09 13:40 | NUR ---
PT C/O FEELING NAUSEA AND VOMITING. ADMINISTERED PRN ZOFRAN VIA IVP.
[2018-09-09 16:00] VITALS: BP 114/71
--- NOTE | 2018-09-09 17:15 | NUR ---
PATIENT IS RESTING ON BED. NO SIGNS OF DISTRESS NOTED. IS AT BEDSIDE.
--- NOTE | 2018-09-09 19:00 | NUR ---
RECEIVED PATIENT ON VENTURI MASK AT 50% FIO2. PULSE OX SAT 95%. FAMILY AT BEDSIDE. SCHEDULED BREATHING TREATMENTS ADMINISTERED. TOLERATED TREATMENTS WELL, NO ADVERSE SIDE EFFECTS. ORAL RINSE PERFORMED POST TREATMENT. RETURNED PATIENT TO 50% VENTURI MASK. NO RESPIRATORY DISTRESS NOTED AT THIS TIME. WILL CONTINUE TO MONITOR.
--- NOTE | 2018-09-09 19:25 | NUR ---
GAVE BEDSIDE REPORT TO CYLINDER INSPECTOR AND TESTER NURSE FOR CONTINUITY OF CARE. PT IS IN STABLE CONDITION.
--- NOTE | 2018-09-09 19:30 | NUR ---
RECEIVED BEDSIDE REPORT FROM DAY SHIFT RN, PATIENT IN BED, ON VENTURI MASK AT 15 L/MIN, LUNG SOUNDS DIMINISHED, IV IN LEFT HAND 22 G, INFUSING NS AT 10 ML/HR. BG 144 NO COVERAGE NEEDED V/S TAKEN BP 103/86 HR 82 DENIES PAIN, FAMILY AT BEDSIDE QUESTIONS ANSWERED. PATIENT REQUESTED ZOFRAN FOR NAUSEA, PATIENT FEELS CONSTIPATED WILL GIVE COLACE. DR MCDONOUGH AT BEDSIDE. EXPLAINED PLAN OF CARE UPDATED BORED WILL CONTINUE TO MONITOR.
[2018-09-09 20:00] VITALS: BP 103/86
[2018-09-09] MEDS: DOCUSATE SODIUM 100 MG GELCAP PO PRN (21:12)
--- NOTE | 2018-09-09 21:12 | NUR ---
GAVE ZOFRAN FOR NAUSEA AND COLACE FOR CONSTIPATION.
[2018-09-10] VITALS: BP 105/80
[2018-09-10] MEDS: guaiFENesin/CODEINE 100/10MG 5 ML UDC PO PRN ×3 (00:03→17:50)
[2018-09-10] MEDS: AZITHROMYCIN 250 MG in DEXTROSE 5% 250 ML IV SCH ×2 (00:04→23:28)
--- NOTE | 2018-09-10 00:19 | NUR ---
CALL FROM LAB IN [place] STATING WE NEED NEW SPUTUM, NOTIFIED PATIENT. CALLED RT O2SAT WENT TO 82% ON 15 L/MIN VIA VENTURI MASK. RT WILL COME CHECK ON PATIENT. GAVE DUE MEDICATIONS AND ROBITUSSIN FOR COUGH.
--- NOTE | 2018-09-10 00:30 | NUR ---
CALLED TO BEDSIDE BY RN PER PATIENT DESATURATING. CALLED AND SPOKE TO DR. LEI REGARDING USE OF CPAP. CPAP ORDERED PLACED BY MD. PLACED PATIENT ON CPAP 6, RATE 14, FIO2 AT 40%. SKIN PROTECTIVE BARRIER IN PLACE. SKIN INTACT. FAMILY AT BEDSIDE. HEART RATE 76. PULSE OX SAT 93%. WILL CONTINUE TO MONITOR.
--- NOTE | 2018-09-10 01:00 | NUR ---
SPUTUM SAMPLE COLLECTED AND SENT TO LAB. PATIENT ON CPAP O2SAT 92%.
--- NOTE | 2018-09-10 02:40 | NUR ---
O2SAT AT 97% ON CPAP, PATIENT CALM IN BED, NO SIGNS OF RESPIRATORY DISTRESS.
[2018-09-10 04:00] VITALS: BP 101/60
--- NOTE | 2018-09-10 04:00 | NUR ---
V/S TAKEN O2SAT 97 %
[2018-09-10] MEDS: NACL 0.9% 1,000 ML IV SCH (06:12)
[2018-09-10] MEDS: ALBUTEROL SULFATE/IPRATROPIU 3 ML SOL IH SCH ×3 (06:33→18:43)
--- NOTE | 2018-09-10 06:33 | NUR ---
rec'd pt on coco v60 settings cpap 5 rr 14 fio2 40% alarms on and audible ambu bag at hob i\l tx given with duoneb 3ml and pulmicort 0.5mg with no adverse reaction post tx b\s are diminished bilaterally pt is awake and alert. changed pt to venti mask at 50%
[2018-09-10] MEDS: BUDESONIDE 0.5 MG/2 ML NEBU INH SCH ×2 (06:42→18:43)
[2018-09-10] MEDS: BLOOD GLUCOSE MONITORING 1 DEV DEV FS SCH ×4 (06:52→20:47)
--- NOTE | 2018-09-10 06:52 | NUR ---
BG 88 NO COVERAGE NEEDED
--- NOTE | 2018-09-10 07:28 | NUR ---
ENDORSED PATIENT TO DAY SHIFT NURSE, PATIENT STABLE.
--- NOTE | 2018-09-10 07:30 | NUR ---
PATIENT WAS AWAKE, ALERT. RESPIRATION EVEN, LABOR ON VENTURI MASK, SPO2 87-89%. PATIENT DENIED SOB. RT WAS MADE AWARE. MD WAS AT BEDSIDE. SKIN DRY AND WARM. IV PATENT AND INTACT. PLAN OF CARE WAS DISCUSSED WITH PATIENT. BED AT LOW POSITION, SIDE RAILS UP. CALL LIGHT WITHIN REACH
[2018-09-10 08:00] VITALS: BP 96/57
[2018-09-10 08:18] LABS: ANION GAP 7.8 (8-16); CARBON DIOXIDE 26.8 mmol/L (21-32); CREATININE 0.6 mg/dL (0.6-1.3); POTASSIUM 3.6 mmol/L (3.5-5.1)
[2018-09-10 08:23] LABS: MAGNESIUM 2.5 mg/dL (1.8-2.4); PHOSPHORUS 3.9 mg/dL (2.5-4.9)
[2018-09-10 08:30] LABS: BASOPHILS # (AUTO) 0.1 K/uL (0.00-0.22); BASOPHILS % (AUTO) 0.5 % (0.0-2.0); EOSINOPHILS # (AUTO) 0.2 K/uL (0-0.4); EOSINOPHILS % (AUTO) 1.2 % (0.0-4.0); HEMATOCRIT 41.2 % (36-48); HEMOGLOBIN 13.3 g/dL (12.0-16.0); LYMPHOCYTES # (AUTO) 2.1 K/uL (2.5-16.5); MEAN CORPUSCULAR HEMOGLOBIN 29 pg (27-31); MEAN CORPUSCULAR HGB CONC 32 g/dL (33-37); MEAN CORPUSCULAR VOLUME 88.5 fL (80-94); MONOCYTES # (AUTO) 0.7 K/uL (0.8-1.0); MONOCYTES % (AUTO) 5.2 % (1.7-9.3); NEUTROPHILS # (AUTO) 10.5 K/uL (1.8-7.7); PLATELET COUNT (AUTO) 245 K/uL (140-450); RED BLOOD CELL COUNT(AUTO) 4.65 MIL/uL (4.20-5.40); RED CELL DISTRIBUTION WIDTH 14.5 % (11.6-13.7); WHITE BLOOD COUNT (AUTO) 13.6 K/uL (4.8-10.8)
[2018-09-10] MEDS: DOCUSATE SODIUM 100 MG GELCAP PO PRN (08:42)
[2018-09-10] MEDS: LACTOBACILLUS RHAMNOSUS GG 1 EACH CAP PO SCH (08:42)
[2018-09-10 08:50] LABS: LYMPHOCYTES % (AUTO) 15.7 % (20.5-51.1); NEUTROPHILS % (AUTO) 77.4 % (42.2-75.2)
--- NOTE | 2018-09-10 11:14 | NUR ---
PATIENT'S SPO2 DROPPED TO 89% ON BIPAP FIO2 40%. RT WAS MADE AWARE.
--- NOTE | 2018-09-10 11:14 | NUR ---
CALLED TO PTS ROOM PT DESAT TO 88% BIPAP CHANGES MADE 14\7 FIO2 50% RN GURPREET AT BEDSIDE
--- NOTE | 2018-09-10 11:15 | NUR ---
PATIENT WAS ENCOURAGED TO KEEP THE BIPAP MASK ON LONG TOLERATED DUE TO DESATURATION. PATIENT AND FAMILY VERBALIZED UNDERSTANDING
[2018-09-10 12:00] VITALS: BP 103/61
--- NOTE | 2018-09-10 12:00 | NUR ---
PATIENT BLOOD SUGAR WAS 75. ORANGE JUICE WAS GIVEN TO THE PATIENT. PATIENT REQUESTED TO HAVE THE MASK TAKEN OFF SO THAT SHE CAN EAT. RT WAS MADE AWARE.
--- NOTE | 2018-09-10 12:31 | NUR ---
took pt off bipap to eat rn saroj notified placed on venti mask at 50%
--- NOTE | 2018-09-10 13:41 | NUR ---
PATIENT WAS AWAKE. RESPIRATION EVEN, UNLABOR ON VENTURI MASK, SPO2 93%. PATIENT DENIED SOB AT THIS TIME. FAMILY AT BEDSIDE. CALL LIGHT WITHIN REACH
[2018-09-10] MEDS: ONDANSETRON 4 MG/2 ML VIAL IM/IVP PRN (13:53)
--- NOTE | 2018-09-10 13:56 | NUR ---
PATIENT COMPLAINED OF FEELING NAUSEOUS. MED WAS GIVEN PER ORDER
[2018-09-10 16:00] VITALS: BP 96/56
--- NOTE | 2018-09-10 16:00 | NUR ---
PATIENT WAS AWAKE, ALERT. RESPIRATION EVEN, UNLABOR ON VENTURI MASK 50%. DENIED SOB, PAIN AT THIS TIME. NO DISTRESS NOTED. FAMILY AT BEDSIDE. CALL LIGHT WITHIN REACH
--- NOTE | 2018-09-10 17:00 | NUR ---
PATIENT WAS SLEEPING COMFORTABLY. NO DISTRESS NOTED AT THIS TIME. FAMILY IS AT BEDSIDE.
--- NOTE | 2018-09-10 18:00 | NUR ---
PATIENT WAS AWAKE, ALERT. RESPIRATION EVEN, UNLABOR ON VENTURI MASK 50%. COMPLAINED OF COUGH. MED WAS GIVEN PER ORDER. NO DISTRESS NOTED AT THIS TIME
--- NOTE | 2018-09-10 19:23 | NUR ---
ENDORSEMENT GIVEN TO PHYSICIAN PRIMARY CARE SPORTS MEDICINE NURSE. PATIENT IS STABLE AT THIS TIME
--- NOTE | 2018-09-10 19:24 | NUR ---
RECEIVED REPORT FROM KAMLESH VÁZQUEZ FOR CONTINUITY OF CARE. PT A/OX4 ON 15L VENTURI MASK 50%, PERSIAN SPEAKING. PT IS ABLE TO MAKE NEEDS KNOWN, ABLE TO FOLLOW COMMANDS. PT AMBULATES WITH STEADY GAIT AND SKIN IS INTACT. PT HAS A 22G IV TO LEFT HAND, ASYMPTOMATIC AND INTACT. VITAL SIGNS WITHIN NORMAL LIMITS. PT STABLE, DENIES HAVING ANY PAIN, NO SIGNS OF DISTRESS NOTED AT THIS TIME. PT POSITIONED FOR COMFORT. BED IN LOWEST POSITION, BED ALARM ON. WILL CONTINUE TO MONITOR.
[2018-09-10 20:00] VITALS: BP 97/56
--- NOTE | 2018-09-10 20:35 | NUR ---
PT BLOOD SUGAR IS 116, NO INSULIN COVERAGE NECESSARY.
--- NOTE | 2018-09-10 22:15 | NUR ---
CLEANED PT AND BED WHILE PT USED BEDSIDE COMMODE, THEN ASSISTED HER BACK TO BED.
[2018-09-10] MEDS: ALBUTEROL SULFATE/IPRATROPIU 3 ML SOL IH PRN (23:04)
--- NOTE | 2018-09-10 23:10 | NUR ---
PT IS NOW ON BIPAP.
[2018-09-11] VITALS: BP 105/58
--- NOTE | 2018-09-11 02:30 | NUR ---
NO SIGNS OF DISTRESS NOTED AT THIS TIME. PT POSITIONED FOR COMFORT. BED IN LOWEST POSITION, BED ALARM ON. WILL CONTINUE TO MONITOR.
--- NOTE | 2018-09-11 03:18 | NUR ---
REMOVED PATIENT FROM FROM BIPAP AND PLACED BACK ON VENTURI 50%. SAO2 AT 92%. NO SOB OR DISTRESS.
[2018-09-11 04:00] VITALS: BP 112/59
--- NOTE | 2018-09-11 05:22 | NUR ---
HELPED PT TO BEDSIDE COMMODE AND BACK TO BED.
[2018-09-11] MEDS: NACL 0.9% 1,000 ML IV SCH (06:17)
[2018-09-11] MEDS: BLOOD GLUCOSE MONITORING 1 DEV DEV FS SCH ×4 (06:33→21:02)
[2018-09-11] MEDS: ALBUTEROL SULFATE/IPRATROPIU 3 ML SOL IH SCH ×3 (06:55→19:46)
[2018-09-11] MEDS: BUDESONIDE 0.5 MG/2 ML NEBU INH SCH ×2 (07:03→19:47)
--- NOTE | 2018-09-11 07:10 | NUR ---
RECEIVED REPORT FROM DEPUTY HEAD RN SHERRIE FOR CONTINUITY OF CARE. PT IS AAOX4, ON 15L VENTURI MASK 50%. PT IS ABLE TO MAKE NEEDS KNOWN, ABLE TO FOLLOW COMMANDS. PT AMBULATES WITH STEADY GAIT AND SKIN IS INTACT. PT HAS A 22G IV TO LEFT HAND, ASYMPTOMATIC AND INTACT. DENIES PAIN. NO S/S OF ACUTE DISTRESS NOTED AT THIS TIME. BED IN LOWEST POSITION, CALL LIGHT WITHIN REACH. WILL CONTINUE TO MONITOR.
--- NOTE | 2018-09-11 07:30 | NUR ---
attempted to decrease fio2 to 40% venturi desated to 84 returned .50 ventuir spo2 93
--- NOTE | 2018-09-11 07:32 | NUR ---
ENDORSED PT TO DAY SHIFT RN KADI FOR CONTINUITY OF CARE. PT IN STABLE CONDITION.
[2018-09-11 07:47] LABS: BASOPHILS % (AUTO) 0.3 % (0.0-2.0); EOSINOPHILS # (AUTO) 0.3 K/uL (0-0.4); HEMOGLOBIN 12.2 g/dL (12.0-16.0); LYMPHOCYTES # (AUTO) 1.3 K/uL (2.5-16.5); LYMPHOCYTES % (AUTO) 9.3 % (20.5-51.1); MEAN CORPUSCULAR HEMOGLOBIN 28 pg (27-31); MEAN CORPUSCULAR HGB CONC 32 g/dL (33-37); MEAN CORPUSCULAR VOLUME 88.1 fL (80-94); MONOCYTES # (AUTO) 0.8 K/uL (0.8-1.0); MONOCYTES % (AUTO) 5.5 % (1.7-9.3); NEUTROPHILS # (AUTO) 11.6 K/uL (1.8-7.7); NEUTROPHILS % (AUTO) 82.9 % (42.2-75.2); PLATELET COUNT (AUTO) 292 K/uL (140-450); RED BLOOD CELL COUNT(AUTO) 4.31 MIL/uL (4.20-5.40)
[2018-09-11 08:00] VITALS: BP 94/54
[2018-09-11] MEDS: guaiFENesin/CODEINE 100/10MG 5 ML UDC PO PRN ×3 (08:17→20:42)
[2018-09-11 08:39] LABS: ANION GAP 9.7 (8-16); CARBON DIOXIDE 29.1 mmol/L (21-32); CREATININE 0.7 mg/dL (0.6-1.3); POTASSIUM 3.8 mmol/L (3.5-5.1)
[2018-09-11 08:47] LABS: MAGNESIUM 2.3 mg/dL (1.8-2.4); PHOSPHORUS 3.7 mg/dL (2.5-4.9)
[2018-09-11] MEDS: LACTOBACILLUS RHAMNOSUS GG 1 EACH CAP PO SCH (09:48)
--- NOTE | 2018-09-11 11:10 | NUR ---
HELPED PT TO BEDSIDE COMMODE AND BACK TO BED. Addendum: 09/11/18 at 1320 by Alin Cunha RN ALL BED LINENS WERE CHANGED BY BRIMMER BLOCKER.
[2018-09-11 12:00] VITALS: BP 108/60
--- NOTE | 2018-09-11 15:05 | NUR ---
PT'S C/O FEVER, CHECK ORAL TEMP 99.7, APPLIED ICE PACK TO NECK.
[2018-09-11 16:00] VITALS: BP 101/49
--- NOTE | 2018-09-11 16:35 | NUR ---
REMIND RT SUNSHINE ABOUT SPUTUM INDUCTION ORDER. SUNSHINE SAID IT'S TOO BUSY RIGHT NOW, WILL ENDORSE TO CARDIOVASCULAR RN.
[2018-09-11] MEDS: BENZOCAINE/MENTHOL 1 LOZ MM PRN (17:49)
--- NOTE | 2018-09-11 19:25 | NUR ---
ENDORSE PT TO RESEARCH PROGRAM MANAGER RN. PT IN STABLE CONDITION.
[2018-09-11 20:00] VITALS: BP 108/58
--- NOTE | 2018-09-11 20:00 | NUR ---
RECEIVED REPORT FROM SHERRIE WHITLOCK, PT ON BED, AAOX4, VITAL SIGNS STABLE, ON VENTURI MASK 505 FI02, OCCASIONAL COUGH NOTED, DENIES ANY PAIN, IVF INFUSING WELL AT 10ML/H, PLAN OF CARE DISCUSSED, SAFETY MEASURES IN PLACE, CALL LIGHT WITHIN REACH.
--- NOTE | 2018-09-11 20:05 | NUR ---
RECEIVED PATIENT ON VENTURI MASK AT 50% FIO2. SCHEDULED BREATHING TREATMENTS ADMINISTERED. TOLERATED TREATMENTS WELL. NO ADVERSE SIDE EFFECTS. ORAL RINSE DONE POST TREATMENT. PLACED PATIENT BACK ON VENTURI MASK AT 50% FIO2. NO RESPIRATORY DISTRESS NOTED AT THIS TIME. WILL CONTINUE TO MONITOR.
--- NOTE | 2018-09-11 21:40 | NUR ---
ASSISTED TO BEDSIDE COMMODE AND VOIDED FREELY, ALL NEEDS ATTENDED.
[2018-09-11] MEDS: AZITHROMYCIN 250 MG in DEXTROSE 5% 250 ML IV SCH (22:39)
[2018-09-12] VITALS: BP 96/48
--- NOTE | 2018-09-12 | NUR ---
PT SLEEPING, EASILY AROUSABLE, VITAL SIGNS TAKEN, BP ON THE LOW SIDE BUT STABLE, NO DISTRESS NOTED, IVF INFUSING WELL, CONTINUE TO MONITOR CLOSELY.
--- NOTE | 2018-09-12 02:30 | NUR ---
PT WITH EPISODE OF INCONTINENCE, BED LINEN CHANGED, SOB ON EXERTION NOTED, MAINTAINED HOB ON FOWLERS POSITION, MONITORED CLOSELY.
[2018-09-12 04:00] VITALS: BP 91/52
[2018-09-12] MEDS: guaiFENesin/CODEINE 100/10MG 5 ML UDC PO PRN ×3 (04:13→20:29)
[2018-09-12] MEDS: DOCUSATE SODIUM 100 MG GELCAP PO PRN (04:25)
--- NOTE | 2018-09-12 04:25 | NUR ---
MEDICATED PRN FOR COUGH, NO BM FOR SEVERAL DAYS, MEDICATED WITH COLACE PRN FOR CONSTIPATION, CONTINUE TO MONITOR CLOSELY.
--- NOTE | 2018-09-12 05:40 | NUR ---
PT SLEEPING, EASILY AROUSABLE, BLOOD SUGAR CHECKED WITH 94 RESULT, NO SOB NOTED, SAT-96% ON CONTINUOS PULSE OX, CONTINUE TO MONITOR CLOSELY.
[2018-09-12] MEDS: ALBUTEROL SULFATE/IPRATROPIU 3 ML SOL IH SCH ×3 (06:19→18:50)
[2018-09-12] MEDS: BUDESONIDE 0.5 MG/2 ML NEBU INH SCH (06:27)
[2018-09-12] MEDS: BLOOD GLUCOSE MONITORING 1 DEV DEV FS SCH ×4 (06:31→20:34)
[2018-09-12] MEDS: NACL 0.9% 1,000 ML IV SCH ×2 (06:40→15:10)
[2018-09-12] MEDS: BENZOCAINE/MENTHOL 1 LOZ MM PRN ×5 (06:42→23:28)
--- NOTE | 2018-09-12 07:18 | NUR ---
PT AWAKE, NO DISTRESS NOTED, REPORT GIVEN TO KAMLESH WALLIS FOR CONTINUITY OF CARE.
--- NOTE | 2018-09-12 07:20 | NUR ---
RECEIVED REPORT FROM ASSOCIATE PROFESSOR OF ECONOMICS RN FOR CONTINUITY OF CARE. PT IS AAOX4, ON 15L VENTURI MASK 50%. PT IS ABLE TO MAKE NEEDS KNOWN, ABLE TO FOLLOW COMMANDS. PT AMBULATES WITH ASSISTANCE AND SKIN IS INTACT. PT HAS A 22G IV TO LEFT HAND, ASYMPTOMATIC AND INTACT, TKO 10ML/HR. DENIES PAIN. NO S/S OF ACUTE DISTRESS NOTED AT THIS TIME. BED IN LOWEST POSITION, CALL LIGHT WITHIN REACH. WILL CONTINUE TO MONITOR.
[2018-09-12 08:00] VITALS: BP 95/50
[2018-09-12 08:32] LABS: MAGNESIUM 2.3 mg/dL (1.8-2.4); PHOSPHORUS 4.3 mg/dL (2.5-4.9)
[2018-09-12 08:35] LABS: HEMATOCRIT 43.4 % (36-48); MEAN CORPUSCULAR HEMOGLOBIN 29 pg (27-31); MEAN CORPUSCULAR HGB CONC 32 g/dL (33-37); MEAN CORPUSCULAR VOLUME 88.9 fL (80-94); PLATELET COUNT (AUTO) 236 K/uL (140-450); RED BLOOD CELL COUNT(AUTO) 4.89 MIL/uL (4.20-5.40); RED CELL DISTRIBUTION WIDTH 13.9 % (11.6-13.7); WHITE BLOOD COUNT (AUTO) 11.2 K/uL (4.8-10.8)
[2018-09-12] MEDS: LACTOBACILLUS RHAMNOSUS GG 1 EACH CAP PO SCH (09:14)
[2018-09-12 09:27] LABS: EOSINOPHILS % (MANUAL) 4 % (0-4); LYMPHOCYTES % (MANUAL) 12 % (20-46); MONOCYTES % (MANUAL) 8 % (5-12)
[2018-09-12 09:40] LABS: POTASSIUM 4.6 mmol/L (3.5-5.1)
[2018-09-12 09:41] LABS: ANION GAP 9.8 (8-16); CARBON DIOXIDE 29.8 mmol/L (21-32); CREATININE 0.7 mg/dL (0.6-1.3)
--- NOTE | 2018-09-12 10:55 | NUR ---
ENCOURAGED PT TO DO INCENTIVE SPIROMETER 5 TIMES EVERY HOUR. PT VERBALIZED UNDERSTANDING. RETURN DEMO WAS DONE. PT REACHED 800ML.
[2018-09-12] MEDS ORDERED: BISACODYL 10 MG SUPP RC SCH (10:58)
[2018-09-12 12:00] VITALS: BP 93/49
--- NOTE | 2018-09-12 12:30 | NUR ---
ASKED PT FOR ANOTHER SPUTUM SAMPLE WITHOUT SALIVA, HOWEVER, PT GAVE A SAMPLE STILL HAS A LOT SALIVA. GAVE PT ANOTHER SPECIMEN COLLECTION CONTAINER.
[2018-09-12] MEDS ORDERED: SIMETHICONE 80 MG TAB.CHEW PO SCH (13:56)
--- NOTE | 2018-09-12 15:20 | NUR ---
PT REFUSED FLEET ENEMA, WANTS TO TRY BEDSIDE COMMODE AGAIN. HELPED PT TO BEDSIDE COMMODE. PT HAD BM, BUT ONLY TINY AMOUNT. ASKED PT TO TRY FLEET ENEMA JOHN, PT AGREES.
[2018-09-12 16:00] VITALS: BP 97/60
--- NOTE | 2018-09-12 19:10 | NUR ---
ENDORSED PT TO AUTOMOBILE SERVICE ADVISOR RN. PT IN STABLE CONDITION.
[2018-09-12 20:00] VITALS: BP 101/56
--- NOTE | 2018-09-12 20:00 | NUR ---
BLOOD SUGAR CHECKED WITH 152 RESULT, REFUSED INSULIN COVERAGE, PT REFUSED ALSO FLEET ENEMA, RISK AND BENEFITS EXPLAINED BUT STILL REFUSING, PT REQUESTING FOR PRUNE JUICE FOR CONSTIPATION, PROVIDED PRUNE JUICE X2, ALL NEEDS ATTENDED.
--- NOTE | 2018-09-12 20:30 | NUR ---
COUGH MEDICATION GIVEN PRN FOR COUGH, MAINTAIN HOB ON HIGH FOWLERS POSITION, ALL NEEDS ATTENDED.
--- NOTE | 2018-09-12 21:30 | NUR ---
PT ASSISTED TO BEDSIDE COMMODE TO TRY TO HAVE BM, VOIDED BUT NO BM, PROVIDED WITH ANOTHER PRUNE JUICE, MONITORED CLOSELY
[2018-09-12] MEDS: AZITHROMYCIN 250 MG in DEXTROSE 5% 250 ML IV SCH (22:39)
[2018-09-13] VITALS: BP 99/57
--- NOTE | 2018-09-13 01:21 | NUR ---
ROUNDS MADE, PT SAT 84-86% WHEN SLEEPING, EASILY AROUSABLE, SAT WENT UP TO 89-92% WHEN AWAKE, MAINTAIN HOB ELEVATED, NO SOB BUT WITH COUGH NOTED, WILL MEDICATE WITH COUGH MEDICATION PRN, MONITORED CLOSELY.
--- NOTE | 2018-09-13 02:02 | NUR ---
PT SLEEPING, SAT-92%, NO DISTRESS NOTED, MONITORED CLOSELY.
[2018-09-13] MEDS: guaiFENesin/CODEINE 100/10MG 5 ML UDC PO PRN ×3 (02:45→22:59)
--- NOTE | 2018-09-13 03:50 | NUR ---
PT WITH EPISODE OF INCONTINENCE OF URINE, PERINEAL CARE DONE, VITALS SIGNS STABLE, MONITORED CLOSELY.
[2018-09-13 04:00] VITALS: BP 97/60
--- NOTE | 2018-09-13 05:50 | NUR ---
BLOOD SUGAR CHECKED WITH 95 RESULT, NO COVERAGE NEEDED, PT STILL REFUSING FLEET ENEMA AT THIS TIME, PRUNE JUICE X2 PROVIDED, SPUTUM SPECIMEN SENT TO LAB FOR TEST, NO DISTRESS NOTED, MONITORED CLOSELY.
[2018-09-13] MEDS: BLOOD GLUCOSE MONITORING 1 DEV DEV FS SCH ×4 (06:34→20:52)
--- NOTE | 2018-09-13 07:10 | NUR ---
PT AWAKE, NO DISTRESS NOTED, BEDSIDE REPORT GIVEN TO RN JACOB FOR CONTINUITY OF CARE.
--- NOTE | 2018-09-13 07:11 | NUR ---
RECEIVED BEDSIDE REPORT FROM WINDOWS SOFTWARE DEVELOPER NURSE. PATIENT IS AWAKE, ALERT AND ORIENTEDX4. NO SIGNS OF DISTRESS ON VENTURI MASK 50%. SKIN IS INTACT. IV ON L HAND 22G INFUSING NS AT 25, CLEAN, DRY AND INTACT. PATIENT IS CONTINENT. BEDSIDE COMMODE AT BEDSIDE. FALL RISK PROTOCOL D/T WEAKNESS AND MULTIPLE LINES, IV LINES, TELE MONITOR, VENTURI MASK, [id number]. AMBULATE W ASSIST. LBM 09/12 BUT IT WAS SMALL [place], PATIENT STILL FEELS CONSTIPATED. BED IN LOW POSITION. CALL LIGHT WITHIN REACH. WILL CONTINUE TO MONITOR THE PATIENT
[2018-09-13 07:44] LABS: CREATININE 0.7 mg/dL (0.6-1.3); MAGNESIUM 2.3 mg/dL (1.8-2.4)
[2018-09-13 07:51] LABS: ANION GAP 3.3 (8-16); CARBON DIOXIDE 31.1 mmol/L (21-32); POTASSIUM 4.4 mmol/L (3.5-5.1)
[2018-09-13 07:53] LABS: HEMATOCRIT 36.9 % (36-48); HEMOGLOBIN 12.2 g/dL (12.0-16.0); MEAN CORPUSCULAR HEMOGLOBIN 29 pg (27-31); MEAN CORPUSCULAR HGB CONC 33 g/dL (33-37); MEAN CORPUSCULAR VOLUME 88.3 fL (80-94); RED BLOOD CELL COUNT(AUTO) 4.18 MIL/uL (4.20-5.40); WHITE BLOOD COUNT (AUTO) 10.7 K/uL (4.8-10.8)
[2018-09-13 07:54] LABS: BASOPHILS % (AUTO) 0.4 % (0.0-2.0); EOSINOPHILS # (AUTO) 0.3 K/uL (0-0.4); LYMPHOCYTES # (AUTO) 1.2 K/uL (2.5-16.5); LYMPHOCYTES % (AUTO) 10.9 % (20.5-51.1); MONOCYTES # (AUTO) 0.8 K/uL (0.8-1.0); MONOCYTES % (AUTO) 7.7 % (1.7-9.3); NEUTROPHILS # (AUTO) 8.3 K/uL (1.8-7.7); PLATELET COUNT (AUTO) 287 K/uL (140-450)
[2018-09-13 08:00] VITALS: BP 101/57
[2018-09-13] MEDS: ALBUTEROL SULFATE/IPRATROPIU 3 ML SOL IH SCH ×3 (08:18→20:59)
[2018-09-13] MEDS: BUDESONIDE 0.5 MG/2 ML NEBU INH SCH ×2 (08:18→20:59)
--- NOTE | 2018-09-13 09:04 | NUR ---
HELPED PATIENT AMBULATE TO THE RESTROOM WITH VENTURI MASK. PATIENT GAIT IS STEADY. CHANGED SOILED CHUCKS. WILL GIVE PATIENT NEW GOWN. WILL CONTINUE TO MONITOR THE PATIENT. TOLD THE PATIENT TO USE CALL LIGHT WHEN FINISHED IN THE RESTROOM
[2018-09-13] MEDS: LACTOBACILLUS RHAMNOSUS GG 1 EACH CAP PO SCH (11:27)
[2018-09-13] MEDS: NACL 0.9% 1,000 ML IV SCH (11:28)
--- NOTE | 2018-09-13 11:34 | NUR ---
ADMINISTERED MEDS. PATIENT TOLERATED WELL. NO SIGNS OF DISTRESS. WILL CONTINUE TO MONITOR THE PATIENT. FAMILY AT BEDSIDE
[2018-09-13 12:00] VITALS: BP 103/60
--- NOTE | 2018-09-13 13:00 | NUR ---
FAMILY AT BEDSIDE. NO COMPLAINTS AT THIS TIME. WILL CONTINUE TO MONITOR THE PATIENT
[2018-09-13] MEDS: methylPREDNISolone SS 125 MG/2 ML VIAL IVP SCH ×2 (14:10→20:55)
--- NOTE | 2018-09-13 14:16 | NUR ---
ADMINISTERED MEDS AND FLEET ENEMA ORDERED. PATIENT TOLERATED WELL AND IS SIDE LYING. PATIENT TOLERATING WELL. WILL CONTINUE TO MONITOR
--- NOTE | 2018-09-13 14:59 | NUR ---
PATIENT THANKED ME FOR THE ENEMA. SHE FEELS SO MUCH BETTER SHE SAID AFTER HAVING A LARGE BM.
[2018-09-13 16:00] VITALS: BP 104/64
--- NOTE | 2018-09-13 16:08 | NUR ---
09/13/18 RD FOLLOW UP COMPLETED PLEASE REFER TO NUTRITION ASSESSMENT UNDER CARE ACTIVITY FOR ESTIMATED NUTRITIONAL NEEDS. 1. CONTINUE CCHO 60 GM AND HIGH FIBER DIET TOLERATED 2. ENCOURAGE INCREASING PO INTAKE >75% 3. RD TO FOLLOW-UP 5-7 DAYS, LOW RISK REGINA CARMICHAEL, RD
[2018-09-13] MEDS: BENZOCAINE/MENTHOL 1 LOZ MM PRN (16:23)
--- NOTE | 2018-09-13 16:25 | NUR ---
ADMINISTERED PRN COUGH MED AND SORE THROAT MED. PATIENT TOLERATED WELL. NO SIGNS OF DISTRESS. WILL CONTINUE TO MONITOR THE PATIENT
--- NOTE | 2018-09-13 18:11 | NUR ---
PATIENT IS EATING DINNER. FAMILY AT BEDSIDE. WILL CONTINUE TO MONITOR THE PATIENT.
--- NOTE | 2018-09-13 19:26 | NUR ---
GAVE BEDSIDE REPORT TO PICK UP ATTENDANT NURSE. PATIENT ENDORSED IN STABLE CONDITION
--- NOTE | 2018-09-13 19:30 | NUR ---
RECEIVED PT FROM [facility] PT LAYA AAOX4 AMBULATORY ON VENTURY MASK 50% NO;T SOB NOTED IV ON LEFT HAND INFUSING WELL I, RELATIVES AT BED SIDE INITIAL ASSESSMENT DONE
[2018-09-13 20:00] VITALS: BP 91/57
[2018-09-13] MEDS: INSULIN LISPRO SLIDING SCALE 100 UNITS/ML VIAL SUBQ PRN (20:51)
--- NOTE | 2018-09-13 20:59 | NUR ---
PATIENT STATED THAT SHE DOES NOT WANT TO GO ON BIPAP BECAUSE IT IS DIFFICULT TO BREATHE. PATIENT AWAKE AND ALERT. STATED THAT SHE DOES NOT FEEL SOB OR DISTRESS. WILL KEEP ON VENTURI MASK AT 50% FIO2 AND 15L/M.
--- NOTE | 2018-09-13 22:00 | NUR ---
PT BLOOD SUGAR TEST 192 COVERAGE WITH 2 UNITS SUBQ HUMALOG PROTOCOL AND SNCK IS PROVIDER
[2018-09-13] MEDS: AZITHROMYCIN 250 MG in DEXTROSE 5% 250 ML IV SCH (22:59)
[2018-09-14] VITALS: BP 95/86
--- NOTE | 2018-09-14 | NUR ---
PT HAS BEEN MONITORING CLOSE, NOT RESP DISTRESS SLEEPING WELL
[2018-09-14 04:00] VITALS: BP 96/63
--- NOTE | 2018-09-14 04:00 | NUR ---
PT HAS BEEN ASSISTING , REPOSITIONED Q2H IV ON LEFT HAND INFUSING WELL ON VENTURY MASK NOT SOB NOTED
[2018-09-14] MEDS: methylPREDNISolone SS 125 MG/2 ML VIAL IVP SCH ×3 (05:44→20:25)
[2018-09-14] MEDS: BLOOD GLUCOSE MONITORING 1 DEV DEV FS SCH ×4 (06:21→20:26)
--- NOTE | 2018-09-14 06:23 | NUR ---
BLOOD SUGAR TEST 132 NOT COVERAGE, PT RESTING ON BED NOT DISTRESS NOTED, PT WILL BE ENDORSED TO DAY SHIFT NURSE FOR CONTINUITY OF CARE
[2018-09-14] MEDS: BUDESONIDE 0.5 MG/2 ML NEBU INH SCH ×2 (07:22→19:56)
[2018-09-14] MEDS: ALBUTEROL SULFATE/IPRATROPIU 3 ML SOL IH SCH ×3 (07:22→19:57)
[2018-09-14 07:30] LABS: BASOPHILS % (AUTO) 0.3 % (0.0-2.0); HEMATOCRIT 37.2 % (36-48); HEMOGLOBIN 12.1 g/dL (12.0-16.0); MEAN CORPUSCULAR HEMOGLOBIN 29 pg (27-31); MEAN CORPUSCULAR HGB CONC 33 g/dL (33-37); MEAN CORPUSCULAR VOLUME 87.5 fL (80-94); MONOCYTES # (AUTO) 0.4 K/uL (0.8-1.0); MONOCYTES % (AUTO) 4.6 % (1.7-9.3); NEUTROPHILS # (AUTO) 7.8 K/uL (1.8-7.7); NEUTROPHILS % (AUTO) 84.1 % (42.2-75.2); PLATELET COUNT (AUTO) 334 K/uL (140-450); RED BLOOD CELL COUNT(AUTO) 4.26 MIL/uL (4.20-5.40); RED CELL DISTRIBUTION WIDTH 13.6 % (11.6-13.7); WHITE BLOOD COUNT (AUTO) 9.3 K/uL (4.8-10.8)
--- NOTE | 2018-09-14 07:30 | NUR ---
RECEIVED BEDSIDE REPORT FROM KAMLESH POWERS. PT STABLE, AWAKE, AND ALERT. A&O X4. NO SIGNS OF DISTRESS NOTED. DENIES SOB OR PAIN. NO REDNESS, SWELLING, OR INFLAMMATION NOTED ON IV SITE. BED IN LOW POSITION. CALL LIGHT WITHIN REACH. SAFETY MEASURES IN PLACE. PLAN OF CARE REVIEWED.
[2018-09-14 07:31] LABS: ANION GAP 12.3 (8-16); CREATININE 0.6 mg/dL (0.6-1.3); POTASSIUM 4.3 mmol/L (3.5-5.1)
--- NOTE | 2018-09-14 07:41 | NUR ---
RECEIVED PATIENT ON VENTURI MASK AT 50% FIO2, PULSE OX SAT 95%. SCHEDULED BREATHING TREATMENTS ADMINISTERED. TOLERATED TREATMENTS WELL, NO ADVERSE SIDE EFFECTS. ORAL RINSE DONE POST TX. RETURNED TO VENTURI MASK. TITRATED OXYGEN TO 40% FIO2, PULSE OX SATURATION DROPPED TO 88%. RETURNED FIO2 TO 50%. NO RESPIRATORY DISTRESS NOTED. WILL CONTINUE TO MONITOR.
[2018-09-14 07:43] LABS: MAGNESIUM 2.5 mg/dL (1.8-2.4); PHOSPHORUS 3.4 mg/dL (2.5-4.9)
[2018-09-14 08:00] VITALS: BP 100/59
--- NOTE | 2018-09-14 08:00 | NUR ---
ENDORSED PT TO RN JACOB FOR CONTINUITY OF CARE. PT STABLE, AWAKE, AND ALERT.
--- NOTE | 2018-09-14 08:01 | NUR ---
RECEIVED BEDSIDE REPORT FROM ELISSA HUNT RN. PATIENT IS AWAKE, ALERT AND ORIENTEDX4. NO SIGNS OF DISTRESS ON VENTURI MASK 50% PATIENT IS CONTINENT. SHE IS AMBULATORY. GAIT A LITTLE WEAK. MULTIPLE LINES, VENTURI MASK, 02SAT MONITOR, IV LINES. FALL RISK PROTOCOL IN PLACE. SKIN IS INTACT. L HAND 22G INFUSING NS AT 50. CLEAN, DRY AND INTACT. BED IN LOW POSITION. CALL LIGHT WITHIN REACH.
[2018-09-14] MEDS: LACTOBACILLUS RHAMNOSUS GG 1 EACH CAP PO SCH (08:21)
[2018-09-14] MEDS: guaiFENesin/CODEINE 100/10MG 5 ML UDC PO PRN ×3 (08:22→22:57)
--- NOTE | 2018-09-14 08:26 | NUR ---
ADMINISTERED MEDS. PATIENT TOLERATED WELL. GAVE PRN COUGH MED. PATIENT TOLERATED WELL. WILL CONTINUE TO MONITOR THE PATIENT.
--- NOTE | 2018-09-14 10:20 | NUR ---
PATIENT IN BED EXERCISING HER LEGS. NO SIGNS OF DISTRESS. WILL CONTINUE TO MONITOR THE PATIENT
[2018-09-14] MEDS: BENZOCAINE/MENTHOL 1 LOZ MM PRN ×3 (12:18→19:57)
--- NOTE | 2018-09-14 12:18 | NUR ---
PATIENT REFUSED INSULIN FOR BS OF 163. EDUCATED THE PATIENT ON THE RISKS OF NOT TAKING INSULIN. PATIENT VERBALIZED UNDERSTANDING AND STILL REFUSED
--- NOTE | 2018-09-14 12:37 | NUR ---
ADMINISTERED MEDS. PATIENT TOLERATED WELL. PATIENT EATING DINNER. FRIEND AT BEDSIDE.
--- NOTE | 2018-09-14 14:03 | NUR ---
IV ON L HAND . REMOVED. TIP INTACT. NEW IV ON R HAND 22G NOW INFUSING NS AT 50. CLEAN, DRY AND INTACT
--- NOTE | 2018-09-14 14:13 | NUR ---
ADMINISTERED PRN SORE THROAT MED. PATIENT TOLERATED WELL. RT AT BEDSIDE
--- NOTE | 2018-09-14 14:21 | NUR ---
SCHEDULED BREATHING TREATMENT ADMINISTERED. TOLERATED WELL, NO ADVERSE SIDE EFFECTS. NO RESPIRATORY DISTRESS NOTED. WILL CONTINUE TO MONITOR.
--- NOTE | 2018-09-14 15:47 | NUR ---
PATIENT SAYS SHE WANTS TO SLEEP BUT THE COUGH KEEPS WAKING HER UP. OFFERED HER ROBITUSSIN, PATIENT SAID YES, ADMINISTERED MED. PATIENT TOLERATED WELL
[2018-09-14 16:00] VITALS: BP 101/63
--- NOTE | 2018-09-14 16:32 | NUR ---
BS IS 165. PATIENT DOES NOT WANT INSULIN COVERAGE AT THIS TIME. PATIENT UNDERSTANDS THE RISKS
--- NOTE | 2018-09-14 17:22 | NUR ---
PATIENT IS SLEEPING. WILL CONTINUE TO MONITOR THE PATIENT
--- NOTE | 2018-09-14 19:10 | NUR ---
GAVE BEDSIDE REPORT TO CARBON PASTE MIXER OPERATOR NURSE. PATIENT ENDORSED IN STABLE CONDITION
--- NOTE | 2018-09-14 19:11 | NUR ---
RECEIVED REPORT FROM KAMLESH JAMES FOR CONTINUITY OF CARE. PT A/OX4 ON VENTURI MASK 50%, ARMENIAN SPEAKING. PT IS ABLE TO MAKE NEEDS KNOWN, ABLE TO FOLLOW COMMANDS. PT AMBULATES WITH STEADY GAIT AND SKIN IS INTACT. PT HAS A 22G IV TO RIGHT HAND, ASYMPTOMATIC AND INTACT. VITAL SIGNS WITHIN NORMAL LIMITS. PT STABLE, DENIES HAVING ANY PAIN, NO SIGNS OF DISTRESS NOTED AT THIS TIME. PT POSITIONED FOR COMFORT. BED IN LOWEST POSITION, BED ALARM ON. WILL CONTINUE TO MONITOR.
[2018-09-14] MEDS: AZITHROMYCIN 250 MG in DEXTROSE 5% 250 ML IV SCH (22:56)
--- NOTE | 2018-09-14 22:57 | NUR ---
ADMINISTERED SCHEDULED MEDICATION AND PRN COUGH MEDICATION, PT TOLERATED WELL.
[2018-09-15] VITALS: BP 110/65
[2018-09-15] MEDS: NACL 0.9% 1,000 ML IV SCH ×2 (01:42→19:42)
--- NOTE | 2018-09-15 02:10 | NUR ---
PT RESTING, NO SIGNS OF DISTRESS NOTED AT THIS TIME. PT POSITIONED FOR COMFORT. BED IN LOWEST POSITION, BED ALARM ON. WILL CONTINUE TO MONITOR.
[2018-09-15] MEDS: BENZOCAINE/MENTHOL 1 LOZ MM PRN ×2 (02:42)
--- NOTE | 2018-09-15 04:35 | NUR ---
PT STILL RESTING, DENIES PAIN. NO SIGNS OF DISTRESS NOTED AT THIS TIME. PT POSITIONED FOR COMFORT. BED IN LOWEST POSITION, BED ALARM ON. WILL CONTINUE TO MONITOR.
[2018-09-15] MEDS: methylPREDNISolone SS 125 MG/2 ML VIAL IVP SCH ×3 (05:47→21:01)
--- NOTE | 2018-09-15 05:50 | NUR ---
ADMINISTERED SCHEDULED MEDICATION, PT TOLERATED WELL. NO INSULIN COVERAGE NEEDED. BED IN LOWEST POSITION, BED ALARM ON. WILL CONTINUE TO MONITOR.
[2018-09-15 06:35] LABS: ANION GAP 8.7 (8-16); CARBON DIOXIDE 28.1 mmol/L (21-32); CREATININE 0.6 mg/dL (0.6-1.3); POTASSIUM 3.8 mmol/L (3.5-5.1)
[2018-09-15] MEDS: BLOOD GLUCOSE MONITORING 1 DEV DEV FS SCH ×4 (06:37→21:50)
[2018-09-15 06:38] LABS: BASOPHILS % (AUTO) 0.1 % (0.0-2.0); HEMATOCRIT 33.9 % (36-48); LYMPHOCYTES # (AUTO) 1.8 K/uL (2.5-16.5); LYMPHOCYTES % (AUTO) 10.6 % (20.5-51.1); MAGNESIUM 2.5 mg/dL (1.8-2.4); MEAN CORPUSCULAR HEMOGLOBIN 29 pg (27-31); MEAN CORPUSCULAR HGB CONC 33 g/dL (33-37); MEAN CORPUSCULAR VOLUME 87.7 fL (80-94); MONOCYTES # (AUTO) 1.4 K/uL (0.8-1.0); MONOCYTES % (AUTO) 8.4 % (1.7-9.3); NEUTROPHILS # (AUTO) 13.5 K/uL (1.8-7.7); NEUTROPHILS % (AUTO) 80.9 % (42.2-75.2); PHOSPHORUS 3.8 mg/dL (2.5-4.9); PLATELET COUNT (AUTO) 323 K/uL (140-450); RED BLOOD CELL COUNT(AUTO) 3.87 MIL/uL (4.20-5.40); RED CELL DISTRIBUTION WIDTH 13.7 % (11.6-13.7); WHITE BLOOD COUNT (AUTO) 16.8 K/uL (4.8-10.8)
[2018-09-15] MEDS: guaiFENesin/CODEINE 100/10MG 5 ML UDC PO PRN (07:01)
--- NOTE | 2018-09-15 07:34 | NUR ---
ENDORSED PT TO DAY SHIFT KAMLESH RAMIREZ FOR CONTINUITY OF CARE. PT IN STABLE CONDITION.
--- NOTE | 2018-09-15 07:39 | NUR ---
RECEIVED BEDSIDE REPORT FROM US ADMINISTRATIVE LAW JUDGE NURSE. PT IS A/OX4. DENIES PAIN. NO SIGNS OF DISTRESS NOTED. ON 50% VENTURI MASK. NO SKIN BREAKDOWN AROUND Beneath the edges of the mask and bridge of nose. ABLE TO FOLLOW COMMEND. SKIN WARM, CLEAN AND INTACT. RESPIRATION UNLABORED AT 18, REGULAR. IV ON R HAND 22G, PATENT AND CLEAN, INFUSING PER MD ORDER. NEED ASSIST WITH AMBULATION. DISCUSSED PLAN OF CARE WITH PATIENT, AND PATIENT VERBALIZED UNDERSTANDING. BED IN LOW POSITION, CALL LIGHT WITHIN REACH.
[2018-09-15] MEDS: BUDESONIDE 0.5 MG/2 ML NEBU INH SCH ×2 (07:41→19:41)
[2018-09-15] MEDS: ALBUTEROL SULFATE/IPRATROPIU 3 ML SOL IH SCH ×3 (07:41→19:36)
[2018-09-15 08:00] VITALS: BP 110/65
--- NOTE | 2018-09-15 08:45 | NUR ---
PT IS ON 6L OXYMIZER, SPO2 AT 93%. NO SIGNS OF DISTRESS NOTED.
--- NOTE | 2018-09-15 09:05 | NUR ---
ASSISTED PT TO USE THE BEDSIDE COMMODE AND CHANGED PT INTO CLEAN LINENS AND GOWN. ASSISTED PT TO GO BACK ON BED AND SET ON BED ALARM. NO SIGN OF DISTRESS NOTED.
[2018-09-15] MEDS ORDERED: POLYVINYL ALCOHOL 1.4% OP 15 ML SOL OP SCH (09:30)
[2018-09-15] MEDS: LACTOBACILLUS RHAMNOSUS GG 1 EACH CAP PO SCH (10:31)
--- NOTE | 2018-09-15 10:41 | NUR ---
ADMINISTERED MEDS PER MD ORDER. PT TOLERATED WELL.
[2018-09-15] MEDS: INSULIN LISPRO SLIDING SCALE 100 UNITS/ML VIAL SUBQ PRN ×2 (12:29→17:02)
--- NOTE | 2018-09-15 13:20 | NUR ---
PT IS SLEEPING ON BED. NO SIGN OF DISTRESS NOTED.
[2018-09-15 16:00] VITALS: BP 113/64
--- NOTE | 2018-09-15 17:02 | NUR ---
PT REFUSED TO GET HUMALOG AND STATED "IT'S NOT THAT HIGH. I DON'T WANT IT".
--- NOTE | 2018-09-15 19:07 | NUR ---
GAVE BEDSIDE REPORT TO MOSAICIST NURSE FOR CONTINUITY OF CARE. PT IS IN STABLE CONDITION.
--- NOTE | 2018-09-15 19:10 | NUR ---
RECEIVED REPORT FROM DAY SHIFT NURSE AT BEDSIDE. PT IN BED, AAOX4. NO C/O PAIN OR SOB. ON O2 OXYMIZER AT 6L/MIN. SKIN INTACT. IV TO RIGHT HAND #22G, NS AT 50 ML/HR INFUSING WELL. DISCUSSED PLAN OF CARE, PT VERBALIZED UNDERSTANDING. SAFETY PRECAUTION IN PLACE. CALL LIGHT WITHIN REACH.
--- NOTE | 2018-09-15 21:00 | NUR ---
BLOOD SUGAR CHECKED 173. PT REFUSED INSULIN HUMALOG. EXPLAINED TO PT THE RISK AND BENEFITS, PT VERBALIZED UNDERSTANDING BUT STILL REFUSED.
[2018-09-15] MEDS: POLYVINYL ALCOHOL 1.4% OP 15 ML SOL OP SCH (21:01)
[2018-09-15] MEDS ORDERED: VANCOMYCIN PER PHARMACY MC PRN (22:30)
[2018-09-15] MEDS ORDERED: MEROPENEM 1,000 MG in NACL 0.9% 100 ML IV SCH (23:00)
--- NOTE | 2018-09-15 23:15 | NUR ---
ASSISTED PT TO BEDSIDE COMMODE. NO C/O PAIN OR SOB. ALL NEEDS MET AT THIS TIME.
[2018-09-15] MEDS ORDERED: VANCOMYCIN 1,500 MG in DEXTROSE 5% 500 ML IV SCH (23:30)
[2018-09-15] MEDS ORDERED: MEROPENEM 500 MG VIAL IV ONE (23:38)
[2018-09-16] VITALS: BP 111/70
[2018-09-16] MEDS ORDERED: VANCOMYCIN 1,000 MG VIAL ONE (00:06)
[2018-09-16] MEDS: ALBUTEROL SULFATE/IPRATROPIU 3 ML SOL IH PRN (00:59)
--- NOTE | 2018-09-16 01:10 | NUR ---
PT C/O COUGH WITH MILD SOB. HEAD OF BED ELEVATED. CALLED RT FOR BREATHING TREATMENT.
--- NOTE | 2018-09-16 03:10 | NUR ---
PT AWAKE. NO COUGH AT THIS TIME. PER PT, SHE FEELS BETTER. NO C/O PAIN OR SOB.
[2018-09-16] MEDS ORDERED: MEROPENEM 1,000 MG VIAL IV ONE (03:59)
[2018-09-16] MEDS ORDERED: MEROPENEM 500 MG VIAL IV ONE (04:42)
[2018-09-16] MEDS: methylPREDNISolone SS 125 MG/2 ML VIAL IVP SCH ×3 (04:54→20:40)
[2018-09-16] MEDS: MEROPENEM 1,000 MG in NACL 0.9% 100 ML IV SCH ×3 (04:54→20:43)
--- NOTE | 2018-09-16 05:30 | NUR ---
PT SLEEPING BUT EASILY AROUSABLE. RESP EVEN AND UNLABORED. NO S/S OF PAIN. DUE MEDS GIVEN.
--- NOTE | 2018-09-16 06:30 | NUR ---
CHECKED BLOOD SUGAR 144. NO INSULIN COVERAGE NEEDED.
[2018-09-16] MEDS: BLOOD GLUCOSE MONITORING 1 DEV DEV FS SCH ×4 (06:52→20:17)
--- NOTE | 2018-09-16 07:15 | NUR ---
ENDORSED PT TO DAY SHIFT NURSE. PT IN STABLE CONDITION.
[2018-09-16] MEDS: BUDESONIDE 0.5 MG/2 ML NEBU INH SCH ×2 (07:56→19:44)
[2018-09-16] MEDS: ALBUTEROL SULFATE/IPRATROPIU 3 ML SOL IH SCH ×3 (07:56→19:43)
[2018-09-16 07:57] LABS: BASOPHILS % (AUTO) 0.1 % (0.0-2.0); HEMATOCRIT 36.2 % (36-48); HEMOGLOBIN 11.9 g/dL (12.0-16.0); LYMPHOCYTES # (AUTO) 1.5 K/uL (2.5-16.5); LYMPHOCYTES % (AUTO) 10.8 % (20.5-51.1); MEAN CORPUSCULAR HEMOGLOBIN 29 pg (27-31); MEAN CORPUSCULAR HGB CONC 33 g/dL (33-37); MEAN CORPUSCULAR VOLUME 87.7 fL (80-94); MONOCYTES # (AUTO) 1.1 K/uL (0.8-1.0); MONOCYTES % (AUTO) 7.8 % (1.7-9.3); NEUTROPHILS % (AUTO) 81.3 % (42.2-75.2); PLATELET COUNT (AUTO) 335 K/uL (140-450); RED BLOOD CELL COUNT(AUTO) 4.13 MIL/uL (4.20-5.40); RED CELL DISTRIBUTION WIDTH 14.2 % (11.6-13.7); WHITE BLOOD COUNT (AUTO) 13.5 K/uL (4.8-10.8)
[2018-09-16 08:00] VITALS: BP 111/64
[2018-09-16 08:03] LABS: MAGNESIUM 2.6 mg/dL (1.8-2.4); PHOSPHORUS 3.6 mg/dL (2.5-4.9)
[2018-09-16 08:06] LABS: CARBON DIOXIDE 25.5 mmol/L (21-32); CREATININE 0.7 mg/dL (0.6-1.3); POTASSIUM 3.5 mmol/L (3.5-5.1)
--- NOTE | 2018-09-16 08:09 | NUR ---
RECEIVED BEDSIDE REPORT FROM SPICE FUMIGATOR NURSE. AOX4. DENIES PAIN. ON 6L OXYMIZER. RESPIRATION EVEN AND UNLABORED. IV ON R HAND 22G, CLEAN AND INTACT, INFUSING PER MD ORDER. SKIN INTACT, CLEAN AND DRY. ABLE TO AMBULATE WITH MINIMAL ASSISTANCE. DISCUSSED PLAN OF CARE WITH PATIENT, AND PATIENT VERBALIZED UNDERSTANDING. SAFETY MEASURES IN PLACE. CALL LIGHT WITHIN REACH.
[2018-09-16] MEDS: POLYVINYL ALCOHOL 1.4% OP 15 ML SOL OP SCH ×2 (09:14→20:32)
[2018-09-16] MEDS: LACTOBACILLUS RHAMNOSUS GG 1 EACH CAP PO SCH (09:14)
--- NOTE | 2018-09-16 09:22 | NUR ---
ADMINISTERED MEDS PER MD ORDER. PT TOLERATED WELL. PT IS WATCHING TV ON BED. NO SIGNS OF DISTRESS NOTED. ON 6L OXYMIZER, SPO2 94%.
--- NOTE | 2018-09-16 11:23 | NUR ---
FAMILY AND VISITORS ARE AT BEDSIDE. PT IS ON 6L OXYMIZER WITH SPO2 93%. NO SIGNS OF DISTRESS NOTED.
[2018-09-16] MEDS: VANCOMYCIN 1GM/DEXT 5% PREMIX 200 ML IV SCH (12:30)
--- NOTE | 2018-09-16 13:40 | NUR ---
PT IS TALKING TO DAUGHTER AT BEDSIDE. PT IS ON 5L OXIMIZER, SPO2 93%. VANCOMYCIN IS STILL INFUSING.
[2018-09-16] MEDS ORDERED: guaiFENesin DM 200/20 MG-10 ML 10 ML UDC PO PRN (14:15)
--- NOTE | 2018-09-16 15:20 | NUR ---
PT IS SLEEPING AT THIS TIME. NO SIGNS OF DISTRESS NOTED.
[2018-09-16 16:00] VITALS: BP 109/65
--- NOTE | 2018-09-16 17:08 | NUR ---
PT IS TALKING TO VISITORS. NO SIGNS OF DISTRESS NOTED.
--- NOTE | 2018-09-16 19:20 | NUR ---
GAVE BEDSIDE REPORT TO SEARCH ADVERTISING STRATEGIST NURSE FOR CONTINUITY OF CARE. PATIENT IS IN STABLE CONDITION.
--- NOTE | 2018-09-16 19:25 | NUR ---
RECEIVED PATIENT AWAKE SITTING ON BED ACCOMPANIED BY FAMILY MEMBER. PATIENT WITH OXIMIZER IN PLACE WITH 5 L O2. EXPLAINED PLAN OF CARE AND VERBALIZED UNDERSTANDING. FALL PRECAUTION APPLIED WITH BSC IN PLACE. CALL LIGHT WITHIN REACH. EMPHASIZED TO USE CALL LIGHT FOR ASSISTANCE.
[2018-09-16] MEDS: INSULIN LISPRO SLIDING SCALE 100 UNITS/ML VIAL SUBQ PRN (20:23)
--- NOTE | 2018-09-16 20:35 | NUR ---
PATIENT REFUSE INSULIN INJECTION. EXPLAIN TO PATIENT THE IMPORTANCE OF INSULIN.
--- NOTE | 2018-09-16 21:00 | NUR ---
SCHEDULE MEDICATION GIVEN TOLERATED WELL. NO S/S OF DISTRESS NOTED. CALL LIGHT WITHIN REACH. WILL CONTINUE TO MONITOR.
[2018-09-16] MEDS: NACL 0.9% 1,000 ML IV SCH (22:45)
[2018-09-17] VITALS: BP 107/63
--- NOTE | 2018-09-17 | NUR ---
SCHEDULE MEDICATION GIVEN. OXIMIZER IN PLACE WITH 5L O2. ALL NEEDS ATTENDED. WILL CONTINUE TO MONITOR.
[2018-09-17] MEDS: VANCOMYCIN 1GM/DEXT 5% PREMIX 200 ML IV SCH (00:12)
--- NOTE | 2018-09-17 02:52 | NUR ---
SEEN PATIENT ASLEEP BUT EASILY AROUSABLE. NO S/S OF DISTRESS NOTED. OXIMIZER IN PLACE WITH 5L 02.CALL LIGHT WITHIN REACH.
--- NOTE | 2018-09-17 04:00 | NUR ---
AM CARE DONE. WILL CONTINUE TO MONITOR.
[2018-09-17] MEDS: MEROPENEM 1,000 MG in NACL 0.9% 100 ML IV SCH ×3 (05:02→20:33)
[2018-09-17] MEDS: methylPREDNISolone SS 125 MG/2 ML VIAL IVP SCH ×3 (05:15→20:34)
[2018-09-17] MEDS: BLOOD GLUCOSE MONITORING 1 DEV DEV FS SCH ×4 (06:28→20:54)
[2018-09-17] MEDS: ALBUTEROL SULFATE/IPRATROPIU 3 ML SOL IH SCH ×3 (06:42→19:52)
[2018-09-17] MEDS: BUDESONIDE 0.5 MG/2 ML NEBU INH SCH ×2 (06:43→19:52)
--- NOTE | 2018-09-17 07:20 | NUR ---
GAVE REPORT TO AM SHIFT RN AT BEDSIDE FOR CONTINUITY OF CARE. CALL LIGHT WITHIN REACH.ALL NEEDS ATTENDED. PATIENT IN STABLE CONDITION.
--- NOTE | 2018-09-17 07:24 | NUR ---
RECEIVED BEDSIDE REPORT FROM PRODUCT SAFETY COORDINATOR RN FOR CONTINUITY OF CARE. PT IN STABLE CONDITION. AOX4. DENIES PAIN AND DISCOMFORT. PT STATES SHE FEELS "MUCH BETTER". NO S/S DISTRESS. RESPIRATIONS EVEN AND UNLABORED. SATURATING 93% ON 5L OXYMIZER. PATIENT AWARE OF NEED FOR SPUTUM SAMPLE, SAMPLE CUP AT BEDSIDE. INCENTIVE SPIROMETER AT BEDSIDE. HEART RHYTHM REGULAR. ACTIVE BS IN ALL QUADRANTS. ABDOMEN SOFT AND NON-DISTENDED. SKIN INTACT. PT IS AMBULATORY W/ ASSIST. IV SITE PATENT AND ASYMPTOMATIC, INFUSING IVF PER MD ORDERS. ALL SAFETY PRECAUTIONS IN PLACE, WILL CONTINUE TO MONITOR.
[2018-09-17 08:00] VITALS: BP 109/64
--- NOTE | 2018-09-17 08:22 | NUR ---
PT HAD ONE FORMED, BROWN BM.
[2018-09-17] MEDS: POLYVINYL ALCOHOL 1.4% OP 15 ML SOL OP SCH ×2 (09:28→20:34)
[2018-09-17] MEDS: LACTOBACILLUS RHAMNOSUS GG 1 EACH CAP PO SCH (09:28)
--- NOTE | 2018-09-17 11:59 | NUR ---
PATIENT REFUSING HUMALOG SLIDING SCALE FOR BS OF 185 MG/DL.
--- NOTE | 2018-09-17 12:07 | NUR ---
ROBITUSSIN DM ADMINISTERED FOR COUGH. STILL AWAITING FOR EXPECTORATED SPUTUM SAMPLE- PT AWARE.
--- NOTE | 2018-09-17 13:07 | NUR ---
PT STATES "COUGH BETTER", ONE HOUR AFTER ROBITUSSIN DM ADMINISTRATION.
[2018-09-17] MEDS: VANCOMYCIN 1,250 MG in DEXTROSE 5% 250 ML IV SCH ×2 (13:53→20:33)
--- NOTE | 2018-09-17 14:37 | NUR ---
OXYMIZER TITRATED TO 4L. PT NOT SOB AT THIS TIME. WILL CONTINUE TO MONITOR.
[2018-09-17] MEDS: NACL 0.9% 1,000 ML IV SCH (14:40)
[2018-09-17 16:00] VITALS: BP 111/67
--- NOTE | 2018-09-17 16:42 | NUR ---
PATIENT REFUSED GLUCOSE CHECK. SHE DOES NOT WANT INSULIN REGARDLESS OF GLUCOSE RESULTS SO SHE IS REFUSING POC FINGER STICK.
--- NOTE | 2018-09-17 19:24 | NUR ---
ENDORSED POC TO BUSINESS PROCESS LEAD RN. PT IN STABLE CONDITION.
--- NOTE | 2018-09-17 19:35 | NUR ---
RECEIVED ENDORSEMENT FROM AM SHIFT RN. PATIENT A/Ox4, ABLE TO VERBALIZE NEEDS. NO SOB OR DISTRESS NOTED. PT SATURATING 96% ON 4L OXYMIZER. PATIENT AWARE OF NEED FOR SPUTUM SAMPLE, SAMPLE CUP AT BEDSIDE. INCENTIVE SPIROMETER AT BEDSIDE. PT IS AMBULATORY W/ ASSIST. IV SITE ON RIGHT FOREARM, 22 GAUGE, PATENT AND ASYMPTOMATIC, INFUSING IVF PER MD ORDERS. BED IN THE LOWEST POSITION, CALL LIGHT WITHIN REACH. ALL SAFETY PRECAUTIONS IN PLACE, INITIAL ASSESSMENT DONE. WILL CONTINUE TO MONITOR.
[2018-09-17] MEDS: INSULIN LISPRO SLIDING SCALE 100 UNITS/ML VIAL SUBQ PRN (20:54)
--- NOTE | 2018-09-17 21:03 | NUR ---
DUE MEDS ADMINISTERED, NO SOB OR DISTRESS NOTED.
[2018-09-18] VITALS: BP 96/61
--- NOTE | 2018-09-18 00:10 | NUR ---
VITALS TAKEN, NO DISTRESS NOTED.
--- NOTE | 2018-09-18 03:01 | NUR ---
CHECKS MADE. NO SOB OR DISTRESS NOTED. O2Sat 95%
[2018-09-18] MEDS: VANCOMYCIN 1,250 MG in DEXTROSE 5% 250 ML IV SCH ×3 (05:00→21:13)
[2018-09-18] MEDS: MEROPENEM 1,000 MG in NACL 0.9% 100 ML IV SCH ×3 (05:00→21:18)
[2018-09-18] MEDS: methylPREDNISolone SS 125 MG/2 ML VIAL IVP SCH ×3 (05:03→21:17)
[2018-09-18] MEDS: BLOOD GLUCOSE MONITORING 1 DEV DEV FS SCH ×4 (06:59→21:19)
--- NOTE | 2018-09-18 07:25 | NUR ---
ENDORSED PATIENT TO AM SHIFT RN. PATIENT IN STABLE CONDITION.
[2018-09-18] MEDS: BUDESONIDE 0.5 MG/2 ML NEBU INH SCH ×2 (07:27→20:57)
[2018-09-18] MEDS: ALBUTEROL SULFATE/IPRATROPIU 3 ML SOL IH SCH ×3 (07:27→20:57)
--- NOTE | 2018-09-18 07:30 | NUR ---
RECEIVED PT FROM JUNIOR SYSTEMS ADMINISTRATOR NURSE, PT IS AWAKE AND SEATED ON THE BED WITH OXYMIZER AT 4L IN PLACE, SIDE RAILS ARE UP AND CALL LIGHT WITHIN REACH, PT DENIES PAIN AND NO SOB NOTED. PT HAS AN IV LINE ON THE RT FA G. 22 WITH NS AT 50ML/HR INFUSING, PT HAS A BEDISDE COMMODE IN PLACE, FALL PRECAUTION INITIATED. NO SIGN OF DISTRESS NOTED AND WILL MONITOR PT.
[2018-09-18 08:00] VITALS: BP 117/58
[2018-09-18 08:00] LABS: BASOPHILS # (AUTO) 0.1 K/uL (0.00-0.22); BASOPHILS % (AUTO) 0.6 % (0.0-2.0); HEMATOCRIT 38.1 % (36-48); HEMOGLOBIN 12.1 g/dL (12.0-16.0); LYMPHOCYTES # (AUTO) 2.4 K/uL (2.5-16.5); LYMPHOCYTES % (AUTO) 15.4 % (20.5-51.1); MEAN CORPUSCULAR HEMOGLOBIN 28 pg (27-31); MEAN CORPUSCULAR HGB CONC 32 g/dL (33-37); MEAN CORPUSCULAR VOLUME 88.6 fL (80-94); MONOCYTES # (AUTO) 1.2 K/uL (0.8-1.0); MONOCYTES % (AUTO) 7.3 % (1.7-9.3); NEUTROPHILS # (AUTO) 12.1 K/uL (1.8-7.7); NEUTROPHILS % (AUTO) 76.7 % (42.2-75.2); PLATELET COUNT (AUTO) 363 K/uL (140-450); RED CELL DISTRIBUTION WIDTH 14.2 % (11.6-13.7); WHITE BLOOD COUNT (AUTO) 15.8 K/uL (4.8-10.8)
[2018-09-18 08:04] LABS: ANION GAP 8.2 (8-16); CARBON DIOXIDE 29.2 mmol/L (21-32); CREATININE 0.7 mg/dL (0.6-1.3); POTASSIUM 4.4 mmol/L (3.5-5.1)
[2018-09-18 08:06] LABS: MAGNESIUM 2.7 mg/dL (1.8-2.4); PHOSPHORUS 3.8 mg/dL (2.5-4.9)
[2018-09-18] MEDS: LACTOBACILLUS RHAMNOSUS GG 1 EACH CAP PO SCH (09:20)
[2018-09-18] MEDS: POLYVINYL ALCOHOL 1.4% OP 15 ML SOL OP SCH ×2 (09:20→21:17)
--- NOTE | 2018-09-18 09:21 | NUR ---
PT IS AWAKE AND SEATED ON THE BED, MEDICATIONS WERE GIVEN AND PT TOLERATED IT, VITAL SIGNS TAKEN PRIOR TO MEDICATION ADMINISTRATION. NO SIGN OF DISTRESS NOTED AND WILL CONTINUE TO MONITOR PT.
[2018-09-18] MEDS: NACL 0.9% 1,000 ML IV SCH (10:40)
--- NOTE | 2018-09-18 12:12 | NUR ---
PT IS AWAKE AND BLOOD GLUCOSE CHECK DONE AND RESULT IS 121, NO INSULIN COVERAGE NEEDED, IV MEDICATION GIVEN WELL AND PT TOLERATED IT. NO SIGN OF DISTRESS NOTED AND WILL MONITOR PT.
--- NOTE | 2018-09-18 14:24 | NUR ---
PT WAS ASSISTED TO USE THE BEDSIDE COMMODE AND THEN ASSISTED BACK TO BED, RT SHAD DOSS WAS INFORMED THAT PT'S O2 SATURATION IS 88-89%. PT WAS INSTRUCTED TO DO DEEP BREATHING AND SATURATION WENT UP TO 90%. MEDICATION WAS GIVEN VIA IV PUSH, NO SIGN OF DISTRESS NOTED AND WILL MONITOR PT.
--- NOTE | 2018-09-18 14:53 | NUR ---
ARNOL FROM LAB CALLED AND REPORTED THE PT'S VANCO TROUGH LEVEL OF 18.5, ACKNOWLEDGED.
--- NOTE | 2018-09-18 14:55 | NUR ---
INFORMED PHARMACIST SHAWN OF THE PT'S VANCO TROUGH LEVEL OF 18.5 AND SHAWN SAID TO GIVE VANCOMYCIN.
[2018-09-18 16:00] VITALS: BP 111/67
--- NOTE | 2018-09-18 16:42 | NUR ---
PT IS AWAKE AND LYING ON THE BED, VITAL SIGNS TAKEN AND IS WITHIN NORMAL LIMIT, VANCOMYCIN WAS STARTED AND PT TOLERATED IT, BLOOD GLUCOSE CHECKED DONE AND RESULT IS 145 AND NO INSULIN COVERAGE NEEDED, NO SIGN OF DISTRESS NOTED AND WILL MONITOR PT.
--- NOTE | 2018-09-18 19:30 | NUR ---
ENDORSED PT TO MOTOR ELECTRICIAN NURSEMICHEAL FOR CONTINUITY OF CARE. PT IS STABLE AT THIS TIME.
--- NOTE | 2018-09-18 19:40 | NUR ---
RECEIVED ENDORSEMENT FROM AM SHIFT RN. PATIENT A/Ox4, ABLE TO VERBALIZE NEEDS. SPEAKS AMERICAN AND CAN UNDERSTAND [place]. INTRODUCED SELF, UPDATED BOARD. NO SOB OR DISTRESS NOTED. PT SATURATING 95% ON 4L OXYMIZER. PATIENT AWARE OF NEED FOR SPUTUM SAMPLE, SAMPLE CUP AT BEDSIDE. INCENTIVE SPIROMETER AT BEDSIDE. PT IS AMBULATORY W/ ASSIST. IV SITE ON RIGHT FOREARM, 22 GAUGE, PATENT AND INTACT. BED IN THE LOWEST POSITION, CALL LIGHT WITHIN REACH. ALL SAFETY PRECAUTIONS IN PLACE. INITIAL ASSESSMENT DONE. WILL CONTINUE TO MONITOR.
--- NOTE | 2018-09-18 21:00 | NUR ---
DUE MEDS GIVEN, NO DISTRESS NOTED. Addendum: 09/19/18 at 0744 by Ranjeet Butts RN GLUCOSE CHECK DONE, BS 194. PATIENT REFUSED INSULIN.
[2018-09-18] MEDS: INSULIN LISPRO SLIDING SCALE 100 UNITS/ML VIAL SUBQ PRN (21:20)
[2018-09-19] VITALS: BP 104/57
--- NOTE | 2018-09-19 00:10 | NUR ---
FREQUENT CHECKS MADE, VITALS TAKEN. PATIENT ASLEEP, VISIBLE CHEST RISE AND FALL NOTED.
--- NOTE | 2018-09-19 02:10 | NUR ---
PATIENT SLEEPING, VISIBLE CHEST RISE AND FALL NOTED.
[2018-09-19] MEDS: VANCOMYCIN 1,250 MG in DEXTROSE 5% 250 ML IV SCH ×3 (04:42→20:56)
[2018-09-19] MEDS: MEROPENEM 1,000 MG in NACL 0.9% 100 ML IV SCH ×3 (04:42→20:58)
[2018-09-19] MEDS: methylPREDNISolone SS 125 MG/2 ML VIAL IVP SCH ×3 (04:43→20:56)
--- NOTE | 2018-09-19 04:58 | NUR ---
DUE MEDS GIVEN. NO SOB OR DISTRESS NOTED.
[2018-09-19] MEDS: NACL 0.9% 1,000 ML IV SCH (05:46)
[2018-09-19 06:20] LABS: BASOPHILS % (AUTO) 0.2 % (0.0-2.0); HEMATOCRIT 38.8 % (36-48); HEMOGLOBIN 12.5 g/dL (12.0-16.0); LYMPHOCYTES # (AUTO) 1.8 K/uL (2.5-16.5); LYMPHOCYTES % (AUTO) 14.7 % (20.5-51.1); MEAN CORPUSCULAR HEMOGLOBIN 29 pg (27-31); MEAN CORPUSCULAR HGB CONC 32 g/dL (33-37); MEAN CORPUSCULAR VOLUME 88.5 fL (80-94); MONOCYTES # (AUTO) 0.8 K/uL (0.8-1.0); MONOCYTES % (AUTO) 6.6 % (1.7-9.3); NEUTROPHILS # (AUTO) 9.4 K/uL (1.8-7.7); NEUTROPHILS % (AUTO) 78.5 % (42.2-75.2); PLATELET COUNT (AUTO) 340 K/uL (140-450); RED BLOOD CELL COUNT(AUTO) 4.38 MIL/uL (4.20-5.40); RED CELL DISTRIBUTION WIDTH 14.3 % (11.6-13.7)
[2018-09-19 06:27] LABS: ANION GAP 13.7 (8-16); CARBON DIOXIDE 25.4 mmol/L (21-32); CREATININE 0.7 mg/dL (0.6-1.3); POTASSIUM 4.1 mmol/L (3.5-5.1)
[2018-09-19] MEDS: INSULIN LISPRO SLIDING SCALE 100 UNITS/ML VIAL SUBQ PRN ×2 (06:33→22:20)
[2018-09-19] MEDS: BLOOD GLUCOSE MONITORING 1 DEV DEV FS SCH ×3 (06:33→22:20)
--- NOTE | 2018-09-19 06:35 | NUR ---
BLOOD GLUCOSE CHECK DONE, BS 169. PATIENT REFUSED INSULIN.
[2018-09-19 06:40] LABS: MAGNESIUM 2.7 mg/dL (1.8-2.4); PHOSPHORUS 3.9 mg/dL (2.5-4.9)
[2018-09-19] MEDS: ALBUTEROL SULFATE/IPRATROPIU 3 ML SOL IH SCH ×3 (06:54→19:43)
[2018-09-19] MEDS: BUDESONIDE 0.5 MG/2 ML NEBU INH SCH ×2 (07:02→19:43)
--- NOTE | 2018-09-19 07:30 | NUR ---
ENDORSED PATIENT TO AM SHIFT RN. PATIENT STABLE.
[2018-09-19 08:00] VITALS: BP 102/55
[2018-09-19] MEDS: POLYVINYL ALCOHOL 1.4% OP 15 ML SOL OP SCH ×2 (09:09→20:57)
[2018-09-19] MEDS: LACTOBACILLUS RHAMNOSUS GG 1 EACH CAP PO SCH (09:10)
--- NOTE | 2018-09-19 09:14 | NUR ---
ADMINISTERED MEDS TO PT ORDERED. TOLERATED WELL. PT OXIMIZER REDUCED TO 2LPM FROM 4 LPM./ O2 SAT 92% AT THIS TIME. WILL CONTINUE TO MONITOR THE PTB AND CHECK THE O2 TOLERANCE FREQUENTLY. CALL LIGHT WITHIN PT REACH. PT STABLE.
--- NOTE | 2018-09-19 12:30 | NUR ---
CHECKED ON PT. BS 134. NO SIGN OF DISTRESS NOTED. CALL LIGHT WITHIN PT REACH. INFORMED TO USE CALL LIGHT FOR ANY HELP. WILL CONTINUE TO MONITOR PT.
--- NOTE | 2018-09-19 15:32 | NUR ---
CALLED [facility] ABOUT OXYGEN, PRIVATE PAY. WAS TOLD THEY DO NOT DO PRIVATE PAY. I CALLED [facility], [phone]. AND SPOKE WITH [facility]S THEY DO NOT DO PRIVATE PAY. I CALLED [facility] [phone] COST TO RENT CONCENTRATOR $170/MO $230 FOR IST MONTH. OR $190/MO FOR CONCENTRATOR AND O2 TANK, $250/MO FOR IST MONTH.
[2018-09-19 16:00] VITALS: BP 104/51
--- NOTE | 2018-09-19 17:00 | NUR ---
CHECKED ON PT. IV GOT INFILTRATED. CHANGED TO LEFT WRIST, 22 G. TOLERATED WELL. ALL SAFETY MEASURE IN PLACE. WILL CONTINUE TO MONITOR PT.
--- NOTE | 2018-09-19 19:15 | NUR ---
ENDORSED PT TO PM NURSE TA BEDSIDE. PT IN STABLE CONDITION.
--- NOTE | 2018-09-19 19:16 | NUR ---
RECEIVED ENDORSEMENT FROM AM SHIFT RN. PATIENT A/Ox4, ABLE TO VERBALIZE NEEDS. SPEAKS [place] AND CAN UNDERSTAND [place]. INTRODUCED SELF, UPDATED BOARD. NO SOB OR DISTRESS NOTED. PT SATURATING 93% ON 3L OXYMIZER. PATIENT AWARE OF NEED FOR SPUTUM SAMPLE, SAMPLE CUP AT BEDSIDE. INCENTIVE SPIROMETER AT BEDSIDE. PT IS AMBULATORY W/ ASSIST. IV SITE ON LEFT WRIST, 22 GAUGE, PATENT AND INTACT. BED IN THE LOWEST POSITION, CALL LIGHT WITHIN REACH. ALL SAFETY PRECAUTIONS IN PLACE. INITIAL ASSESSMENT DONE. WILL CONTINUE TO MONITOR.
--- NOTE | 2018-09-19 21:02 | NUR ---
DUE MEDS ADMINISTERED, NO DISTRESS NOTED.
[2018-09-20] VITALS: BP 107/53
--- NOTE | 2018-09-20 | NUR ---
VITALS TAKEN, PATIENT ASLEEP, EYES CLOSED, VISIBLE CHEST RISE AND FALL NOTED.
[2018-09-20] MEDS: NACL 0.9% 1,000 ML IV SCH ×2 (02:09→22:40)
--- NOTE | 2018-09-20 03:43 | NUR ---
FREQUENT CHECKS MADE. O2Sat 94%. NO SOB OR DISTRESS NOTED. PATIENT ASLEEP, VISIBLE CHEST RISE AND FALL NOTED.
[2018-09-20] MEDS: methylPREDNISolone SS 125 MG/2 ML VIAL IVP SCH ×3 (04:10→21:18)
[2018-09-20] MEDS: VANCOMYCIN 1,250 MG in DEXTROSE 5% 250 ML IV SCH ×3 (04:10→21:18)
[2018-09-20] MEDS: MEROPENEM 1,000 MG in NACL 0.9% 100 ML IV SCH ×3 (04:10→21:18)
[2018-09-20] MEDS: BLOOD GLUCOSE MONITORING 1 DEV DEV FS SCH ×4 (06:31→21:14)
[2018-09-20] MEDS: INSULIN LISPRO SLIDING SCALE 100 UNITS/ML VIAL SUBQ PRN (06:35)
[2018-09-20] MEDS: ALBUTEROL SULFATE/IPRATROPIU 3 ML SOL IH SCH ×3 (07:10→18:43)
[2018-09-20] MEDS: BUDESONIDE 0.5 MG/2 ML NEBU INH SCH ×2 (07:18→18:43)
--- NOTE | 2018-09-20 07:22 | NUR ---
ENDORSED PATIENT TO AM SHIFT RN. PATIENT IN STABLE CONDITION.
--- NOTE | 2018-09-20 07:23 | NUR ---
RECEIVED REPORT FROM MIDLEVEL PROVIDER NURSE. PATIENT SITTING IN BED WATCHING TV. NO DISTRESS NOTED. DENIES ANY PAIN AT THIS TIME. AAOX4, CALM, COOPERATIVE, SKIN COLOR APPROPRIATE TO ETHNICITY, WARM TO TOUCH. SKIN INTACT. RESPIRATIONS EVEN, UNLABORED, ON ROOM AIR. IV SITE INTACT, PATENT, AND INFUSING IVF PER MD ORDERS. ON O2 3L/MIN VIA OXIMIZER WITH O2 SAT AT 95%. LUNGS DIMINISHED ON ALL LOBES. REVIEWED PLAN OF CARE WITH PATIENT. PATIENT VERBALIZED UNDERSTANDING. SAFETY MEASURES IN PLACE, CALL LIGHT WITHIN REACH. WILL CONTINUE TO MONITOR.
[2018-09-20 07:41] LABS: HEMATOCRIT 40.7 % (36-48); MEAN CORPUSCULAR HEMOGLOBIN 29 pg (27-31); MEAN CORPUSCULAR HGB CONC 32 g/dL (33-37); MEAN CORPUSCULAR VOLUME 89.8 fL (80-94); PLATELET COUNT (AUTO) 329 K/uL (140-450); RED BLOOD CELL COUNT(AUTO) 4.53 MIL/uL (4.20-5.40); RED CELL DISTRIBUTION WIDTH 14.6 % (11.6-13.7); WHITE BLOOD COUNT (AUTO) 11.8 K/uL (4.8-10.8)
[2018-09-20 08:00] VITALS: BP 98/60
[2018-09-20 08:21] LABS: MAGNESIUM 2.6 mg/dL (1.8-2.4); PHOSPHORUS 3.6 mg/dL (2.5-4.9)
[2018-09-20 08:28] LABS: ANION GAP 14.7 (8-16); CARBON DIOXIDE 24.9 mmol/L (21-32); CREATININE 0.8 mg/dL (0.6-1.3); POTASSIUM 4.6 mmol/L (3.5-5.1)
[2018-09-20] MEDS: LACTOBACILLUS RHAMNOSUS GG 1 EACH CAP PO SCH (09:05)
[2018-09-20] MEDS: POLYVINYL ALCOHOL 1.4% OP 15 ML SOL OP SCH ×2 (09:06→21:19)
--- NOTE | 2018-09-20 09:11 | NUR ---
PATIENT SITTING IN BED TALKING ON THE PHONE. NO DISTRESS NOTED. DENIES ANY PAIN. SCHEDULED MEDICATIONS DUE GIVEN. WILL CONTINUE TO MONITOR.
[2018-09-20 09:31] LABS: LYMPHOCYTES % (MANUAL) 2 % (20-46); MONOCYTES % (MANUAL) 5 % (5-12)
--- NOTE | 2018-09-20 13:02 | NUR ---
PATIENT SITTING AT BEDSIDE CHAIR. NO DISTRESS NOTED. DENIES ANY PAIN. SCHEDULED MEDICATIONS DUE GIVEN. WILL CONTINUE TO MONITOR.
--- NOTE | 2018-09-20 14:41 | NUR ---
09/20/18 RD FOLLOW UP COMPLETED PLEASE REFER TO NUTRITION ASSESSMENT UNDER CARE ACTIVITY FOR ESTIMATED NUTRITIONAL NEEDS. 1. CONTINUE CCHO 60 GM AND HIGH FIBER DIET TOLERATED 2. RD PROVIDED NUTRITION EDUCATION ON DIABETES 3. RD TO FOLLOW-UP 5-7 DAYS, LOW RISK REGINA CARMICHAEL RD
[2018-09-20 16:00] VITALS: BP 106/60
--- NOTE | 2018-09-20 17:29 | NUR ---
PATIENT SITTING IN BED WATCHING TV. NO DISTRESS NOTED. DENIES ANY PAIN. BS IS 165 WITH 2 UNITS HUMALOG COVERAGE NEEDED, HOWEVER, PATIENT REFUSES INSULIN. MD AWARE. WILL CONTINUE TO MONITOR.
--- NOTE | 2018-09-20 19:27 | NUR ---
GAVE REPORT TO APPLIQUER NURSE FOR CONTINUITY OF CARE. PATIENT IN STABLE CONDITION.
--- NOTE | 2018-09-20 19:30 | NUR ---
ASSUMED CARE OF PATIENT, AWAKE, ALERT AND ORIENTED. STABLE CONDITION. NO DISTRESS NOTED. NO COMPLAINS. CALL LIGHT WITHIN REACH.
--- NOTE | 2018-09-20 21:00 | NUR ---
DUE MEDS GIVEN. HS SNACK GIVEN. CALL LIGHT WITHIN REACH. USING BEDSIDE COMMODE.
[2018-09-20 23:49] VITALS: BP 106/67
--- NOTE | 2018-09-21 | NUR ---
ASLEEP NOTED. NO COMPLAINS. VITAL SIGNS STABLE. AFEBRILE. CALL LIGHT WITHIN REACH.
[2018-09-21] MEDS: MEROPENEM 1,000 MG in NACL 0.9% 100 ML IV SCH ×3 (04:19→21:25)
[2018-09-21] MEDS: VANCOMYCIN 1,250 MG in DEXTROSE 5% 250 ML IV SCH ×2 (04:20→05:00)
[2018-09-21] MEDS: methylPREDNISolone SS 125 MG/2 ML VIAL IVP SCH ×3 (04:20→21:27)
[2018-09-21 04:32] LABS: ANION GAP 10.6 (8-16); CREATININE 0.7 mg/dL (0.6-1.3); POTASSIUM 4.6 mmol/L (3.5-5.1)
[2018-09-21] MEDS: NACL 0.9% 1,000 ML IV SCH (05:23)
[2018-09-21] MEDS: BLOOD GLUCOSE MONITORING 1 DEV DEV FS SCH ×4 (06:02→21:31)
[2018-09-21] MEDS: ALBUTEROL SULFATE/IPRATROPIU 3 ML SOL IH SCH ×3 (07:09→19:37)
[2018-09-21] MEDS: BUDESONIDE 0.5 MG/2 ML NEBU INH SCH ×2 (07:11→19:39)
--- NOTE | 2018-09-21 07:20 | NUR ---
ENDORSED CARE AT BEDSIDE WITH QUETA RN, PATIENT IN STABLE CONDITION.
--- NOTE | 2018-09-21 07:21 | NUR ---
RECEIVED REPORT FROM FIRE MANAGEMENT SPECIALIST NURSE. PATIENT SITTING IN BED WATCHING TV. NO DISTRESS NOTED. DENIES ANY PAIN AT THIS TIME. AAOX4, CALM, COOPERATIVE, SKIN COLOR APPROPRIATE TO ETHNICITY, WARM TO TOUCH. SKIN INTACT. RESPIRATIONS EVEN, UNLABORED, ON 3L O2 VIA OXIMIZER. IV SITE INTACT, PATENT, AND INFUSING IVF PER MD ORDERS. LUNGS DIMINISHED ON ALL LOBES. REVIEWED PLAN OF CARE WITH PATIENT. PATIENT VERBALIZED UNDERSTANDING. SAFETY MEASURES IN PLACE, CALL LIGHT WITHIN REACH. WILL CONTINUE TO MONITOR.
[2018-09-21 08:00] VITALS: BP 100/61
[2018-09-21 08:07] LABS: BASOPHILS % (AUTO) 0.1 % (0.0-2.0); HEMATOCRIT 41.9 % (36-48); HEMOGLOBIN 13.6 g/dL (12.0-16.0); LYMPHOCYTES # (AUTO) 1.1 K/uL (2.5-16.5); LYMPHOCYTES % (AUTO) 11.2 % (20.5-51.1); MEAN CORPUSCULAR HEMOGLOBIN 29 pg (27-31); MEAN CORPUSCULAR HGB CONC 32 g/dL (33-37); MEAN CORPUSCULAR VOLUME 89.5 fL (80-94); MONOCYTES # (AUTO) 0.4 K/uL (0.8-1.0); MONOCYTES % (AUTO) 4.4 % (1.7-9.3); NEUTROPHILS # (AUTO) 8.3 K/uL (1.8-7.7); NEUTROPHILS % (AUTO) 84.3 % (42.2-75.2); PLATELET COUNT (AUTO) 301 K/uL (140-450); RED BLOOD CELL COUNT(AUTO) 4.69 MIL/uL (4.20-5.40); RED CELL DISTRIBUTION WIDTH 15.3 % (11.6-13.7); WHITE BLOOD COUNT (AUTO) 9.8 K/uL (4.8-10.8)
[2018-09-21] MEDS: LACTOBACILLUS RHAMNOSUS GG 1 EACH CAP PO SCH (08:24)
[2018-09-21] MEDS: POLYVINYL ALCOHOL 1.4% OP 15 ML SOL OP SCH ×2 (08:25→21:28)
--- NOTE | 2018-09-21 08:31 | NUR ---
PATIENT SITTING IN BED WATCHING TV. NO DISTRESS NOTED. DENIES ANY PAIN. SCHEDULED MEDICATIONS DUE GIVEN. WILL CONTINUE TO MONITOR.
[2018-09-21 12:23] LABS: C-REACTIVE PROTEIN QUANT 0.3 mg/dL (0.0-0.9)
--- NOTE | 2018-09-21 12:39 | NUR ---
PATIENT SITTING IN BED WITH LUNCH TRAY IN FRONT. NO DISTRESS NOTED. DENIES ANY PAIN. SCHEDULED MEDICATIONS DUE GIVEN. WILL CONTINUE TO MONITOR.
[2018-09-21 12:43] LABS: BILIRUBIN,URINE NEGATIVE (NEGATIVE); BLOOD, URINE NEGATIVE (NEGATIVE); COLOR,URINE YELLOW (YELLOW); LEUKOCYTE ESTERASE ,URINE NEGATIVE (NEGATIVE); NITRITE, URINE NEGATIVE (NEGATIVE); UGLUCOSE NEGATIVE (NEGATIVE)
[2018-09-21 12:44] LABS: APPEARANCE,URINE CLEAR (CLEAR)
--- NOTE | 2018-09-21 14:24 | NUR ---
[employer] Note: Per [employer] senior human resources representative from [employer] ext [phone], all necessary documents for full scope [facility] (not restricted [facility]) have been submitted to [facility] and has been following up with [facility] daily for update. He reported he will notify us once patient has full scope [employer]. I met with patient at bedside. Patient speaks Monegasque. I provided patient with update from [facility]. She stated she cannot afford to pay for home O2 at this time. She told me she has been ambulating on oxygen during hospitalization.
[2018-09-21 16:00] VITALS: BP 93/70
--- NOTE | 2018-09-21 17:30 | NUR ---
PATIENT SITTING IN BED. NO DISTRESS NOTED. CONDITION UNCHANGED. WILL CONTINUE TO MONITOR.
--- NOTE | 2018-09-21 19:24 | NUR ---
GAVE REPORT TO CARPENTER APPRENTICE NURSE FOR CONTINUITY OF CARE. PATIENT IN STABLE CONDITION.
--- NOTE | 2018-09-21 19:25 | NUR ---
RECEIVED BEDSIDE REPORT FROM DAY SHIFT NURSE MELINDA RN, PT STABLE, NO DISTRESS NOTED, IV TO L HAND 22G PATENT, INTACT, INFUSING NS @ 126ML/HR, INFUSING WELL, PT ON 3LPM O3 VIA OXYMIZER, NO SOB NOTED, INITIAL ASSESSMENT DONE, ALL SAFETY PRECAUTION MET, CALL LIGHT WITHIN REACH, WILL CONTINUE TO MONITOR.
[2018-09-21] MEDS: VANCOMYCIN 1GM/DEXT 5% PREMIX 200 ML IV SCH (21:31)
--- NOTE | 2018-09-21 21:36 | NUR ---
DUE MEDICATION ADMINISTERED, PT TOLERATED WELL, NO DISTRESS NOTED, CALL LIGHT WITHIN REACH, WILL CONTINUE TO MONITOR.
--- NOTE | 2018-09-21 23:55 | NUR ---
CHECKED ON PT, PT SLEEPING, NO DISTRESS NOTED, CALL LIGHT WITHIN REACH, WILL CONTINUE TO MONITOR.
[2018-09-22] VITALS: BP 105/58
[2018-09-22] MEDS: NACL 0.9% 1,000 ML IV SCH ×4 (02:35→22:11)
--- NOTE | 2018-09-22 04:03 | NUR ---
CHECKED ON PT, PT SLEEPING, CALL LIGHT WITHIN REACH, WILL CONTINUE TO MONITOR.
[2018-09-22] MEDS: MEROPENEM 1,000 MG in NACL 0.9% 100 ML IV SCH (05:30)
[2018-09-22] MEDS: VANCOMYCIN 1GM/DEXT 5% PREMIX 200 ML IV SCH (05:37)
[2018-09-22] MEDS: methylPREDNISolone SS 125 MG/2 ML VIAL IVP SCH ×3 (05:37→21:47)
[2018-09-22] MEDS: BLOOD GLUCOSE MONITORING 1 DEV DEV FS SCH ×4 (05:42→21:45)
--- NOTE | 2018-09-22 07:20 | NUR ---
ENDORSED PT TO DAY SHIFT NURSE MELINDA RN, PT STABLE, NO DISTRESS NOTED, CALL LIGHT WITHIN REACH.
[2018-09-22 07:21] LABS: BASOPHILS % (AUTO) 0.3 % (0.0-2.0); HEMATOCRIT 39.8 % (36-48); LYMPHOCYTES # (AUTO) 1.2 K/uL (2.5-16.5); LYMPHOCYTES % (AUTO) 11.2 % (20.5-51.1); MEAN CORPUSCULAR HEMOGLOBIN 29 pg (27-31); MEAN CORPUSCULAR HGB CONC 33 g/dL (33-37); MEAN CORPUSCULAR VOLUME 88.9 fL (80-94); MONOCYTES # (AUTO) 0.6 K/uL (0.8-1.0); MONOCYTES % (AUTO) 5.6 % (1.7-9.3); NEUTROPHILS # (AUTO) 8.6 K/uL (1.8-7.7); NEUTROPHILS % (AUTO) 82.9 % (42.2-75.2); PLATELET COUNT (AUTO) 303 K/uL (140-450); RED BLOOD CELL COUNT(AUTO) 4.48 MIL/uL (4.20-5.40); RED CELL DISTRIBUTION WIDTH 15.4 % (11.6-13.7); WHITE BLOOD COUNT (AUTO) 10.4 K/uL (4.8-10.8)
--- NOTE | 2018-09-22 07:21 | NUR ---
RECEIVED REPORT FROM STITCH BONDER MACHINE OPERATOR HELPER NURSE. PATIENT SITTING IN BED WATCHING TV. NO DISTRESS NOTED. DENIES ANY PAIN AT THIS TIME. AAOX4, CALM, COOPERATIVE, SKIN COLOR APPROPRIATE TO ETHNICITY, WARM TO TOUCH. SKIN INTACT. RESPIRATIONS EVEN, UNLABORED, ON 3L O2 VIA OXIMIZER. IV SITE INTACT, PATENT, AND INFUSING IVF PER MD ORDERS. LUNGS DIMINISHED ON ALL LOBES. REVIEWED PLAN OF CARE WITH PATIENT. PATIENT VERBALIZED UNDERSTANDING. SAFETY MEASURES IN PLACE, CALL LIGHT WITHIN REACH. WILL CONTINUE TO MONITOR.
[2018-09-22 07:27] LABS: ANION GAP 11.6 (8-16); CARBON DIOXIDE 26.6 mmol/L (21-32); CREATININE 0.7 mg/dL (0.6-1.3); POTASSIUM 4.2 mmol/L (3.5-5.1)
[2018-09-22 07:42] LABS: MAGNESIUM 2.5 mg/dL (1.8-2.4); PHOSPHORUS 3.9 mg/dL (2.5-4.9)
[2018-09-22] MEDS: BUDESONIDE 0.5 MG/2 ML NEBU INH SCH ×2 (07:42→19:09)
[2018-09-22] MEDS: ALBUTEROL SULFATE/IPRATROPIU 3 ML SOL IH SCH ×3 (07:42→19:09)
[2018-09-22 08:00] VITALS: BP 106/52
[2018-09-22] MEDS: LACTOBACILLUS RHAMNOSUS GG 1 EACH CAP PO SCH (08:50)
[2018-09-22] MEDS: POLYVINYL ALCOHOL 1.4% OP 15 ML SOL OP SCH ×2 (08:52→22:10)
--- NOTE | 2018-09-22 08:58 | NUR ---
PATIENT SITTING IN BED, TALKING WITH AT BEDSIDE. NO DISTRESS NOTED. DENIES ANY PAIN. SCHEDULED MEDICATIONS DUE GIVEN. WILL CONTINUE TO MONITOR.
[2018-09-22 10:07] LABS: LACTATE DEHYDROGENASE 186 IU/L (119-226)
--- NOTE | 2018-09-22 12:10 | NUR ---
I CALLED [facility] ABOUT HOME O2. FOR RENTAL, $115/MO FOR CONCENTRATOR AND TANK IS $29.65 82c PER CANULA. RAEGAN AT [facility] SAID THAT IF THE HOSPITAL WAS GOING TO PAY, WE WOULD HAVE TO CALL THEIR CORPORATE OFFICE, . I CALLED [facility], [phone] AND SPOKE WITH JENSEN. HE SAID THAT THEY DO NOT DO RENTAL OXYGEN WITH THE HOSPITAL PAYING. THEY NEED A CREDIT CARD FROM THE PATIENT. ONLY WILL DO HOSPITAL IF HOSPITAL PAYS FOR THE EQUIPMENT, NOT RENTAL.
[2018-09-22] MEDS: metroNIDAZOLE 500 MG TAB PO SCH ×2 (12:35→16:44)
--- NOTE | 2018-09-22 12:40 | NUR ---
PATIENT SITTING IN BED WITH LUNCH TRAY IN FRONT. NO DISTRESS NOTED. DENIES ANY PAIN. PATIENT DENIES ANY MORE DIARRHEA. NO BM NOTED SINCE START OF SHIFT TODAY. SCHEDULED MEDICATIONS DUE GIVEN. WILL CONTINUE TO MONITOR.
[2018-09-22 15:09] LABS: ANTI DOUBLE STRANDED DNA AB <1 IU/mL (0-9)
[2018-09-22 16:00] VITALS: BP 97/52
--- NOTE | 2018-09-22 16:45 | NUR ---
PATIENT SITTING IN BED TALKING WITH FAMILY MEMBERS AT BEDSIDE. NO DISTRESS NOTED. DENIES ANY PAIN. SCHEDULED MEDICATIONS DUE GIVEN. WILL CONTINUE TO MONITOR.
--- NOTE | 2018-09-22 19:24 | NUR ---
GAVE REPORT TO ESTATE PLANNING DIRECTOR NURSE FOR CONTINUITY OF CARE. PATIENT IN STABLE CONDITION.
--- NOTE | 2018-09-22 19:25 | NUR ---
RECEIVED REPORT FORM MELINDA WHITLOCK DAYSHIFT NURSE AT BEDSIDE FOR CONTINUITY OF CARE, PT IN STABLE CONDITION.
[2018-09-22 20:00] VITALS: BP 88/46
--- NOTE | 2018-09-22 21:35 | NUR ---
PT IN BED NO S/S OF SOB , PAIN OR DISCOMFORT NOTED. PT HAD LARGE LOOSE BM AND SAMPLE WAS COLLECTED. ALL MEDS SOLUMEDROL, TEARS, AND HEPARIN GIVEN ORDERED. IV FLUIDS OF N/S REPLACED AND RUNNING AT 126ML/HR ORDERED.
--- NOTE | 2018-09-22 22:00 | NUR ---
STOOL SAMPLE EVALUATED BY CHARGE NURSE LUZ MARINA, SAMPLE NOT SUBMITTED FOR C-DIFF BECAUSE IT WAS SEMI FORMED. BM DID NOT HAVE EXCESSIVE FOUL ODOR.
--- NOTE | 2018-09-23 00:25 | NUR ---
PT ASLEEP IN BED NO S/S OF PAIN OR DISTRESS NOTED, ALL FALLS PRECAUTIONS IN PLACE. VITALS SIGNS FOLLOWS T 97.2 P 57 R 18 B/P 88/46 02 93% ON ROOM AIR, AND CALL AMBRIZ IN REACH.
--- NOTE | 2018-09-23 04:00 | NUR ---
PT IN BED NO S/S OF PAIN OR DISTRESS NOTED. PT SLEEPING ALL FALLS PRECAUTIONS IN PLACE V/S FOLLOWS T 96.7 P 51 R 18 B/P 97/52 02 92 WITH 3 LITERS OF O2 VIA OXYMIZER.
[2018-09-23] MEDS: methylPREDNISolone SS 125 MG/2 ML VIAL IVP SCH ×3 (06:09→20:18)
[2018-09-23] MEDS: BLOOD GLUCOSE MONITORING 1 DEV DEV FS SCH ×4 (06:26→20:19)
[2018-09-23] MEDS: ALBUTEROL SULFATE/IPRATROPIU 3 ML SOL IH SCH ×3 (07:14→19:33)
[2018-09-23] MEDS: BUDESONIDE 0.5 MG/2 ML NEBU INH SCH ×2 (07:14→19:33)
--- NOTE | 2018-09-23 07:30 | NUR ---
RECEIVED PT REPORT FROM CERTIFIED COURT/MEDICAL INTERPRETER NURSE. PT IS AAOX4, NO S/S OF ACUTE DISTRESS NOTED ON RM AIR. DENIES ANY PAIN AT THIS TIME. SKIN WARM, DRY, AND INTACT. RESPIRATIONS EVEN, UNLABORED, ON 3L O2 VIA OXYMIZER, NO S/S OF ACUTE DISTRESS NOTED. IV CATH TO RIGHT HAND 20G, INTACT, PATENT, AND INFUSING WELL. LUNGS DIMINISHED. POC DISCUSSED. PATIENT VERBALIZED UNDERSTANDING. BED LOCKED IN LOWEST POSITION. SAFETY MEASURES IN PLACE, CALL LIGHT WITHIN REACH. WILL CONTINUE TO MONITOR.
--- NOTE | 2018-09-23 07:30 | NUR ---
RECEIVED PATIENT ON 3L OXYMIZER, PULSE OX SAT 92%. SCHEDULED BREATHING TREATMENTS ADMINISTERED. TOLERATED TREATMENTS WELL, NO ADVERSE SIDE EFFECTS. ORAL RINSE DONE POST TX. PATIENT PLACED BACK ON OXYMIZER AT 3L. NO RESPIRATORY DISTRESS NOTED AT THIS TIME. WILL CONTINUE TO MONITOR.
--- NOTE | 2018-09-23 07:30 | NUR ---
CARE ENDORSED TO KADI RN DAYSHIFT NURSE AT BEDSIDE FOR CONTINUITY OF CARE, PT IN STABLE CONDITION.
[2018-09-23 07:54] LABS: BASOPHILS % (AUTO) 0.1 % (0.0-2.0); HEMATOCRIT 38.9 % (36-48); HEMOGLOBIN 12.5 g/dL (12.0-16.0); LYMPHOCYTES # (AUTO) 1.3 K/uL (2.5-16.5); LYMPHOCYTES % (AUTO) 12.3 % (20.5-51.1); MEAN CORPUSCULAR HEMOGLOBIN 29 pg (27-31); MEAN CORPUSCULAR HGB CONC 32 g/dL (33-37); MONOCYTES # (AUTO) 0.6 K/uL (0.8-1.0); MONOCYTES % (AUTO) 5.4 % (1.7-9.3); NEUTROPHILS # (AUTO) 8.6 K/uL (1.8-7.7); NEUTROPHILS % (AUTO) 82.2 % (42.2-75.2); PLATELET COUNT (AUTO) 276 K/uL (140-450); RED BLOOD CELL COUNT(AUTO) 4.32 MIL/uL (4.20-5.40); RED CELL DISTRIBUTION WIDTH 15.2 % (11.6-13.7); WHITE BLOOD COUNT (AUTO) 10.5 K/uL (4.8-10.8)
[2018-09-23 07:56] LABS: ANION GAP 10.8 (8-16); CARBON DIOXIDE 27.2 mmol/L (21-32); CREATININE 0.7 mg/dL (0.6-1.3)
[2018-09-23 08:00] VITALS: BP 97/54
[2018-09-23 08:02] LABS: MAGNESIUM 2.3 mg/dL (1.8-2.4); PHOSPHORUS 3.9 mg/dL (2.5-4.9)
[2018-09-23] MEDS: metroNIDAZOLE 500 MG TAB PO SCH ×3 (08:38→16:18)
[2018-09-23] MEDS: LACTOBACILLUS RHAMNOSUS GG 1 EACH CAP PO SCH (08:38)
[2018-09-23] MEDS: POLYVINYL ALCOHOL 1.4% OP 15 ML SOL OP SCH ×2 (08:38→20:18)
--- NOTE | 2018-09-23 10:05 | NUR ---
MADE PT AWARE THAT STOOL SAMPLE IS NEEDED. TOLD PT TO CALL ME WHEN SHE IS GOING TO HAVE ONE. PT STATED OK.
--- NOTE | 2018-09-23 11:30 | NUR ---
PT AMBULATED WITH WALKER AND RUBBER GOODS SUPERVISOR AROUND THE UNIT FOR 2 LAPS. PT TOLERATED WELL ON 3L O2 OXYMIZER.
--- NOTE | 2018-09-23 13:48 | NUR ---
FAMILY AT BEDSIDE. TITRATED OXYGEN TO 2L OXYMIZER, FIO2 28%. PULSE OX SAT 90-92%. SCHEDULED BREATHING TREATMENT ADMINISTERED. TOLERATED TX WELL, NO ADVERSE SIDE EFFECTS. NO RESPIRATORY DISTRESS NOTED AT THIS TIME. WILL CONTINUE TO MONITOR.
[2018-09-23 16:00] VITALS: BP 102/57
[2018-09-23] MEDS: NACL 0.9% 1,000 ML IV SCH (16:20)
--- NOTE | 2018-09-23 18:24 | NUR ---
PT STATED NO BM TODAY. PT IS AWARE THAT A STOOL SAMPLE IS NEEDED IF SHE HAS DIARRHEA.
--- NOTE | 2018-09-23 19:15 | NUR ---
REPORT GIVEN TO NIGHT NURSE AT BEDSIDE. PT IN STABLE CONDITION.
--- NOTE | 2018-09-23 19:16 | NUR ---
RECEIVED BEDSIDE REPORT FROM KADI WHITLOCK. PT IS AAO X4. ON OXIMIZER 3L. LUNG SOUNDS ARE CLEAR. NO SOB OR PAIN. IS AT BEDSIDE. IV ON R WRIST 20G PATENT AND INTACT. SKIN INTACT. PT AMBULATES WITH ASSIST AND USES BEDSIDE COMMODE. ALL SAFETY MEASURES ARE IN PLACE. CALL LIGHT WITHIN REACH.
--- NOTE | 2018-09-23 20:18 | NUR ---
DUE MEDICATIONS GIVEN. PT TOLERATED WELL. ALL NEEDS MET AT THIS TIME. WILL CONTINUE TO MONITOR. Addendum: 09/24/18 at 0145 by Zenaida Gallagher RN INSULIN HELD BLOOD SUGAR 168 PT WAS EATING SNACK HAD JUST FINISHED DINNER. PT HAS NOT RECEIVED INSULIN DURING HER STAY. WILL RECHECK BLOOD SUGAR IN MORNING.
--- NOTE | 2018-09-23 22:00 | NUR ---
SLEEPING COMFORTABLY IN BED. NO S/S OF DISTRESS. CALL LIGHT WITHIN REACH.
[2018-09-24] VITALS: BP 98/51
--- NOTE | 2018-09-24 | NUR ---
VS ARE WITHIN NORMAL LIMITS. ALL SAFETY MEASURES ARE IN PLACE. CALL LIGHT WITHIN REACH.
--- NOTE | 2018-09-24 02:00 | NUR ---
PT IS SLEEPING COMFORTABLY IN BED. NO S/S OF DISTRESS. CALL LIGHT WITHIN REACH. WILL CONTINUE TO MONITOR.
[2018-09-24] MEDS: methylPREDNISolone SS 125 MG/2 ML VIAL IVP SCH ×3 (05:54→20:29)
--- NOTE | 2018-09-24 05:58 | NUR ---
DUE MEDICATIONS ADMINISTERED. PT TOLERATED WELL. ALL NEEDS MET AT THIS TIME. CALL LIGHT WITHIN REACH
[2018-09-24] MEDS: BLOOD GLUCOSE MONITORING 1 DEV DEV FS SCH ×4 (05:59→20:24)
[2018-09-24] MEDS: ALBUTEROL SULFATE/IPRATROPIU 3 ML SOL IH SCH ×3 (07:00→19:52)
[2018-09-24] MEDS: BUDESONIDE 0.5 MG/2 ML NEBU INH SCH ×2 (07:09→19:52)
--- NOTE | 2018-09-24 07:25 | NUR ---
RECEIVED PT REPORT FROM FAMILY SERVICE AIDE NURSE. PT IS AAOX4, NO S/S OF ACUTE DISTRESS NOTED ON RM AIR. DENIES ANY PAIN AT THIS TIME. SKIN WARM, DRY, AND INTACT. RESPIRATIONS EVEN, UNLABORED, ON 3L O2 VIA OXYMIZER, NO S/S OF ACUTE DISTRESS NOTED. IV CATH TO RIGHT HAND 20G, INTACT, PATENT, AND INFUSING WELL. LUNGS DIMINISHED. POC DISCUSSED. PATIENT VERBALIZED UNDERSTANDING. BED LOCKED IN LOWEST POSITION. SAFETY MEASURES IN PLACE, CALL LIGHT WITHIN REACH. WILL CONTINUE TO MONITOR.
--- NOTE | 2018-09-24 07:25 | NUR ---
GAVE BEDSIDE REPORT TO KADI WHITLOCK. PT ENDORSED IN STABLE CONDITION. SAFETY MEASURES ARE IN PLACE.
[2018-09-24 08:00] VITALS: BP 99/59
--- NOTE | 2018-09-24 08:30 | NUR ---
PT SAID SHE HAD NO BM YESTERDAY. PT WANTS A PRUNE JUICE WHICH WAS GIVEN. PT DRANK IT AND TOLERATED WELL.
[2018-09-24] MEDS: metroNIDAZOLE 500 MG TAB PO SCH ×3 (09:16→17:13)
[2018-09-24] MEDS: POLYVINYL ALCOHOL 1.4% OP 15 ML SOL OP SCH ×2 (09:17→20:28)
[2018-09-24] MEDS: LACTOBACILLUS RHAMNOSUS GG 1 EACH CAP PO SCH (09:17)
--- NOTE | 2018-09-24 10:25 | NUR ---
PT AMBULATED WITH WALKER AND MATERIAL REQUIREMENTS WORKER AROUND THE UNIT FOR 2 LAPS. PT TOLERATED WELL ON 3L O2 OXYMIZER.
[2018-09-24] MEDS: NACL 0.9% 1,000 ML IV SCH (11:11)
--- NOTE | 2018-09-24 12:30 | NUR ---
PT SITTING IN THE CHAIR FOR LUNCH, NO S/S OF ACUTE DISTRESS.
[2018-09-24 16:00] VITALS: BP 96/55
--- NOTE | 2018-09-24 17:10 | NUR ---
PT REFUSED INSULIN, BG 197 AT 1600, PT STATED SHE HAD ORANGE JUICE RIGHT BEFORE THE SUGAR CHECK, THAT'S WHY IT'S HIGH. PT SAID SHE IS OK, REFUSED COVERAGE.
[2018-09-24] MEDS: INSULIN LISPRO SLIDING SCALE 100 UNITS/ML VIAL SUBQ PRN (17:14)
--- NOTE | 2018-09-24 19:10 | NUR ---
ENDORSED PT TO COMPUTER SYSTEMS CONSULTANT FOR CONTINUITY OF CARE. PT IN STABLE CONDITION.
--- NOTE | 2018-09-24 19:11 | NUR ---
RECEIVED BEDSIDE REPORT FROM KADI WHITLOCK. PT IS AAO X4. ON OXIMIZER 3L. LUNG SOUNDS ARE CLEAR. NO SOB OR PAIN. FAMILY IS AT BEDSIDE. IV ON R WRIST 20G PATENT AND INTACT. SKIN INTACT. PT AMBULATES WITH ASSIST AND USES BEDSIDE COMMODE. ALL SAFETY MEASURES ARE IN PLACE. CALL LIGHT WITHIN REACH.
--- NOTE | 2018-09-24 20:29 | NUR ---
DUE MEDICATIONS GIVEN. PT TOLERATED WELL. AND DAUGHTER ARE AT BEDSIDE. ALL QUESTIONS ANSWERED. CALL LIGHT WITHIN REACH. WILL CONTINUE TO MONITOR.
--- NOTE | 2018-09-24 22:00 | NUR ---
PT SLEEPING COMFORTABLY IN BED. RESPIRATIONS ARE EQUAL AND UNLABORED. CALL LIGHT WITHIN REACH.
[2018-09-25] VITALS: BP 97/65
--- NOTE | 2018-09-25 | NUR ---
VITAL SIGN ARE STABLE. ALL NEEDS MET AT THIS TIME. WILL CONTINUE TO MONITOR
--- NOTE | 2018-09-25 03:30 | NUR ---
CHECKED ON PT. PT IS SLEEPING. RESPIRATIONS ARE EQUAL AND UNLABORED. NO S/S OF DISTRESS
[2018-09-25] MEDS: methylPREDNISolone SS 125 MG/2 ML VIAL IVP SCH ×3 (05:30→21:22)
[2018-09-25] MEDS: BLOOD GLUCOSE MONITORING 1 DEV DEV FS SCH ×4 (05:34→21:11)
--- NOTE | 2018-09-25 05:43 | NUR ---
PER PATIENT SHE HAS BEEN CONSTIPATED THE PAST 3-4 DAYS. STATES SHE HAD A FEW BM TH NIGHT BUT WERE FORM NOT LIQUID. PT REQUESTING PRUNE JUICE STATES IT HELPS HER HAVE A BM. PRUNE JUICE GIVEN. WILL CONTINUE TO MONITOR.
[2018-09-25 06:31] LABS: HEMATOCRIT 36.7 % (36-48); HEMOGLOBIN 12.4 g/dL (12.0-16.0); MEAN CORPUSCULAR HEMOGLOBIN 30 pg (27-31); MEAN CORPUSCULAR HGB CONC 34 g/dL (33-37); MEAN CORPUSCULAR VOLUME 88.1 fL (80-94); PLATELET COUNT (AUTO) 264 K/uL (140-450); RED BLOOD CELL COUNT(AUTO) 4.17 MIL/uL (4.20-5.40); RED CELL DISTRIBUTION WIDTH 16.2 % (11.6-13.7); WHITE BLOOD COUNT (AUTO) 11.7 K/uL (4.8-10.8)
[2018-09-25 06:34] LABS: ANION GAP 12.4 (8-16); CARBON DIOXIDE 25.2 mmol/L (21-32); CREATININE 0.6 mg/dL (0.6-1.3); POTASSIUM 3.6 mmol/L (3.5-5.1)
[2018-09-25 06:41] LABS: MAGNESIUM 2.3 mg/dL (1.8-2.4)
[2018-09-25] MEDS: ALBUTEROL SULFATE/IPRATROPIU 3 ML SOL IH SCH ×3 (07:12→19:28)
[2018-09-25] MEDS: BUDESONIDE 0.5 MG/2 ML NEBU INH SCH ×2 (07:20→19:28)
[2018-09-25 07:22] LABS: LYMPHOCYTES % (MANUAL) 16 % (20-46); MONOCYTES % (MANUAL) 4 % (5-12)
--- NOTE | 2018-09-25 07:31 | NUR ---
GAVE BEDSIDE REPORT TO DAY SHIFT RN. PT ENDORSED IN STABLE CONDITION.
--- NOTE | 2018-09-25 07:40 | NUR ---
REPORT RECEIVED FROM NIGHT NURSE, PT AWAKE, A/O ABLE TO COMMUNICATE NEED. DENIES PAIN, DENIES SOB, O2 VIA OXIMIZER IN PLACE. NO S/S OF ACUTE DISTRESS NOTED AT THIS TIME. CALL LIGHT AND PERSONAL ITEMS WITHIN REACH, SAFETY AND FALL PRECAUTIONS IN PLACE, WILL CONTINUE TO MONITOR.
[2018-09-25 08:00] VITALS: BP 105/61
[2018-09-25] MEDS: POLYVINYL ALCOHOL 1.4% OP 15 ML SOL OP SCH ×2 (09:12→21:17)
[2018-09-25] MEDS: metroNIDAZOLE 500 MG TAB PO SCH (09:12)
[2018-09-25] MEDS: LACTOBACILLUS RHAMNOSUS GG 1 EACH CAP PO SCH (09:12)
--- NOTE | 2018-09-25 10:30 | NUR ---
PT AWAKE, A/O ABLE TO COMMUNICATE NEED. FAMILY AT BEDSIDE. PT DENIES PAIN, DENIES SOB, O2 VIA OXIMIZER REMAINS IN PLACE. NO S/S OF ACUTE DISTRESS NOTED AT THIS TIME. CALL LIGHT AND PERSONAL ITEMS WITHIN REACH, SAFETY AND FALL PRECAUTIONS IN PLACE, WILL CONTINUE TO MONITOR.
[2018-09-25] MEDS: NACL 0.9% 1,000 ML IV SCH (10:48)
--- NOTE | 2018-09-25 13:11 | NUR ---
SPOKE WITH JESSICA FROM [employer]. HE SAID TO RENT CONCENTRATOR IS $150/MO INCLUDING 1 TANK. PHONE [phone]
--- NOTE | 2018-09-25 13:30 | NUR ---
PT AWAKE, A/O ABLE TO COMMUNICATE NEED. DENIES PAIN, DENIES SOB, O2 VIA OXIMIZER IN PLACE AY 3LPM NO S/S OF ACUTE DISTRESS NOTED AT THIS TIME. CALL LIGHT AND PERSONAL ITEMS WITHIN REACH, SAFETY AND FALL PRECAUTIONS IN PLACE, WILL CONTINUE TO MONITOR.
--- NOTE | 2018-09-25 14:25 | NUR ---
Hip Hop Artist Note: I was informed by [facility] parts representative from [employer] ext [phone] via e-mail, he will not be in office today and will continue following up with patient's full scope [facility] application once he returns to office.
[2018-09-25 16:00] VITALS: BP 103/59
--- NOTE | 2018-09-25 16:45 | NUR ---
PT REFUSES INSULIN SLIDING SCALE COVERAGE, EDUCATION PROVIDED, VERBALIZED UNDERSTANDING OF USE.
--- NOTE | 2018-09-25 17:30 | NUR ---
PT REMAINS AWAKE, A/O ABLE TO COMMUNICATE NEED. DENIES PAIN, DENIES SOB, MAINTAINED ON O2 VIA OXIMIZER.NO S/S OF ACUTE DISTRESS NOTED AT THIS TIME. CALL LIGHT AND PERSONAL ITEMS WITHIN REACH, SAFETY AND FALL PRECAUTIONS IN PLACE, WILL CONTINUE TO MONITOR.
--- NOTE | 2018-09-25 18:40 | NUR ---
PT PT SHE HAS NOT HAD A BM IN 4 DAYS, PER PT REQUEST ATTEMPTED PRUNE JUICE X [address] OWEN NOTIFIED PT HAS NOT BEEN ABLE TO HAVE A BOWEL MOVEMENT X4 DAYS ORDERS TO BE WRITTEN.
[2018-09-25] MEDS ORDERED: SODIUM PHOSPHATE 118 ML ENEM RC SCH (19:00)
--- NOTE | 2018-09-25 19:24 | NUR ---
PT REMAINED A/O THROUGHT SHIFT. PT DENIES PAIN, DENIES SOB, O2 ADMINISTERED PER ORDER. NO S/S OF ACUTE DISTRESS NOTED AT THIS TIME. CALL LIGHT AND PERSONAL ITEMS WITHIN REACH, SAFETY AND FALL PRECAUTIONS IN PLACE. REPORT ENDORSED TO NIGHT NURSE NURSE.
--- NOTE | 2018-09-25 19:30 | NUR ---
RECEIVED PATIENT AWAKE LYING COMFORTABLY ON BED WITH OMN GOING BREATHING TREATMENT. PATIENT WAS COOPERATIVE AND TOLERATED TREATMENT WELL. PATIENT ABLE TO RECOGNIZES HER NEEDS. HOB ELEVATED, CALL LIGHTS WITHIN REACH. RESPIRATION EVEN AND UNLABORED. EXPLAINED TO PATIENT PLAN OF CARE AND TOLERATED WELL. FALL PRECAUTION APPLIED. WILL CONTINUE TO MONITOR.
--- NOTE | 2018-09-25 21:00 | NUR ---
SCHEDULE MEDICATION GIVEN TOLERATED WELL. BS TAKEN 231 WITH COVERAGE PER SLIDING SCALE, BUT PATIENT DECLINE FOR INSULIN INJECTION. EXPLAINED THE IMPORTANCE OF INSULIN TREATMENT AND ITS MANAGEMENT. NO MS/SW OF DISTRESS NOTED AT THIS TIME. WILL CONTINUE TO MONITOR.
[2018-09-26] VITALS: BP 95/51
--- NOTE | 2018-09-26 | NUR ---
SEEN PATIENT ASLEEP BUT EASILY AROUSABLE. V/S TAKEN AND RECORDED. OXIMIZER IN PLACE WITH 2.5L OF O2. NO S/S OF DISTRESS NOTED.
--- NOTE | 2018-09-26 | NUR ---
CHECKED PATIENT ASLEEP BUT EASILY AROUSABLE. FALL PRECAUTION IN PLACE. CALL LIGHT WITHIN REACH. WILL CONTINUE TO MONITOR. Addendum: 09/26/18 at 0552 by Neil Severino RN [phone] PHONG
--- NOTE | 2018-09-26 04:30 | NUR ---
PATIENT SEEN ASLEEP. OXIMIZER IN PLACE WITH 2.5L O2. SCHEDULE MEDICATION GIVEN. HOB ELEVATED. NO S/S OF DISTRESS NOTED. BED IN LOW LOCKED POSITION. WILL CONTINUE TO MONITOR.
[2018-09-26] MEDS: methylPREDNISolone SS 125 MG/2 ML VIAL IVP SCH ×3 (05:05→20:42)
[2018-09-26] MEDS: BLOOD GLUCOSE MONITORING 1 DEV DEV FS SCH ×4 (06:16→20:40)
[2018-09-26 06:29] LABS: BASOPHILS % (AUTO) 0.2 % (0.0-2.0); HEMATOCRIT 37.3 % (36-48); HEMOGLOBIN 12.2 g/dL (12.0-16.0); MEAN CORPUSCULAR HEMOGLOBIN 29 pg (27-31); MEAN CORPUSCULAR HGB CONC 33 g/dL (33-37); MEAN CORPUSCULAR VOLUME 89.7 fL (80-94); MONOCYTES # (AUTO) 0.7 K/uL (0.8-1.0); MONOCYTES % (AUTO) 6.3 % (1.7-9.3); NEUTROPHILS # (AUTO) 9.9 K/uL (1.8-7.7); NEUTROPHILS % (AUTO) 84.5 % (42.2-75.2); PLATELET COUNT (AUTO) 244 K/uL (140-450); RED BLOOD CELL COUNT(AUTO) 4.15 MIL/uL (4.20-5.40); RED CELL DISTRIBUTION WIDTH 15.9 % (11.6-13.7); WHITE BLOOD COUNT (AUTO) 11.7 K/uL (4.8-10.8)
[2018-09-26 07:01] LABS: CARBON DIOXIDE 26.2 mmol/L (21-32); CREATININE 0.7 mg/dL (0.6-1.3); POTASSIUM 4.2 mmol/L (3.5-5.1)
[2018-09-26 07:06] LABS: MAGNESIUM 2.2 mg/dL (1.8-2.4)
[2018-09-26] MEDS: ALBUTEROL SULFATE/IPRATROPIU 3 ML SOL IH SCH ×3 (07:07→19:20)
[2018-09-26] MEDS: BUDESONIDE 0.5 MG/2 ML NEBU INH SCH ×2 (07:15→19:20)
--- NOTE | 2018-09-26 07:25 | NUR ---
ENDORSEMENT GIVEN TO AM SHIFT RN. CALL LIGHT WITHIN REACH. PATIENT IN STABLE CONDITION.
--- NOTE | 2018-09-26 07:25 | NUR ---
REPORT RECEIVED FROM CONSUMER SAFETY OFFICER NURSE. PT RESTING IN BED WITH BREATHING TREATMENT FROM RT. ALL SAFETY MEASURES IN PLACE. WILL CONT. TO MONITOR.
[2018-09-26 08:00] VITALS: BP 101/57
--- NOTE | 2018-09-26 08:05 | NUR ---
DR DAVIS AT BEDSIDE WITH MEDICAL TEAM, POC DISCUSSED.
[2018-09-26] MEDS: POLYVINYL ALCOHOL 1.4% OP 15 ML SOL OP SCH ×2 (09:00→20:42)
[2018-09-26 09:07] LABS: ALDOLASE SERUM 6.9 U/L (3.3-10.3)
--- NOTE | 2018-09-26 09:12 | NUR ---
PT UP TO BEDSIDE COMMODE WITHOUT PROBLEM.
[2018-09-26 09:56] LABS: ANTINUETROPHIL CYTOPLASMIC AB <1:20 titer (Neg:<1:20)
[2018-09-26] MEDS: LACTOBACILLUS RHAMNOSUS GG 1 EACH CAP PO SCH (09:59)
[2018-09-26] MEDS: NACL 0.9% 1,000 ML IV SCH (10:24)
--- NOTE | 2018-09-26 10:32 | NUR ---
PT UP OUT OF BED, AMBULATED WITH STEADY GAIT, NO DIZZINESS, OR LIGHT HEADEDNESS, JALEESA WELL.
--- NOTE | 2018-09-26 12:27 | NUR ---
PT SITTING UP EATING LUNCH, NO INSULIN NEEDED FOR BLOOD SUGAR 123, SOLUMED GIVEN PER ORDER, NO IMMEDIATE NEEDS, WILL CONTINUE TO MONITOR
--- NOTE | 2018-09-26 13:44 | NUR ---
09/26/18 RD FOLLOW UP COMPLETED PLEASE REFER TO NUTRITION ASSESSMENT UNDER CARE ACTIVITY FOR ESTIMATED NUTRITIONAL NEEDS. RD RECOMMENDATIONS: 1. CONTINUE CCHO 60 GM AND HIGH FIBER DIET TOLERATED 2. RD PROVIDED NUTRITION EDUCATION ON DIABETES AND HEALTHY EATING 3. RD TO FOLLOW-UP 5-7 DAYS, LOW RISK REGINA CARMICHAEL RD
--- NOTE | 2018-09-26 14:38 | NUR ---
PT UP TO BEDSIDE COMMODE WIHTOUT PROBLEM.
--- NOTE | 2018-09-26 15:50 | NUR ---
VITALS DONE, PT IN NAD.
[2018-09-26 16:00] VITALS: BP 110/62
--- NOTE | 2018-09-26 16:38 | NUR ---
BLOOD SUGAR 173, PT REFUSES INSULIN.
--- NOTE | 2018-09-26 18:09 | NUR ---
PT SITTING UP EATING DINNER, FAMILY AT BEDSIDE, PT TALKING WITH THEM IN NAD, DENIES ANY NEEDS, IVF INFUSING WELL, SITE WNL, PT REMAINS ON OXYMIZER 2.5L. RESP EVEN UNLABORED, DENIES ANY NEEDS WILL CONTINUE TO MONITOOR.
--- NOTE | 2018-09-26 19:12 | NUR ---
REPORT GIVEN TO SALES AND MARKETING ASSISTANT NURSE, PT IN STABLE CONDITION.
--- NOTE | 2018-09-26 19:30 | NUR ---
ASSUMED CARE OF PATIENT, AWAKE, ALERT AND ORIENTED. FAMILY AT BEDSIDE. NO COMPLAINS. CARE BOARD UPDATED. PLAN OF CARE DISCUSSED WITH PATIENT AND FAMILY MEMBER AT BEDSIDE, VERBALIZED UNDERSTANDING WELL. CALL LIGHT WITHIN REACH.
--- NOTE | 2018-09-26 21:07 | NUR ---
DUE MEDS GIVEN. HS SNACK GIVEN. NO COMPLAINS. REFUSED INSULIN COVERAGE PRN. ENCOURAGE TO DO DEEP BREATHING AND COUGHING EXERCISES, AMENABLE. CALL LIGHT WITHIN REACH.
[2018-09-26 23:42] VITALS: BP 92/55
--- NOTE | 2018-09-26 23:43 | NUR ---
ASLEEP. NO COMPLAINS. VITAL SIGNS STABLE. AFEBRILE. CALL LIGHT WITHIN REACH.
[2018-09-27] MEDS: methylPREDNISolone SS 125 MG/2 ML VIAL IVP SCH (04:22)
--- NOTE | 2018-09-27 04:25 | NUR ---
AWAKE, NO COMPLAINS. CALL LIGHT WITHIN REACH.
[2018-09-27] MEDS: BLOOD GLUCOSE MONITORING 1 DEV DEV FS SCH ×3 (05:35→16:30)
[2018-09-27 06:08] LABS: HEMOGLOBIN 12.3 g/dL (12.0-16.0); MEAN CORPUSCULAR HEMOGLOBIN 29 pg (27-31); MEAN CORPUSCULAR HGB CONC 32 g/dL (33-37); MEAN CORPUSCULAR VOLUME 90.6 fL (80-94); PLATELET COUNT (AUTO) 256 K/uL (140-450); RED CELL DISTRIBUTION WIDTH 16.2 % (11.6-13.7); WHITE BLOOD COUNT (AUTO) 12.4 K/uL (4.8-10.8)
[2018-09-27 06:30] LABS: MAGNESIUM 2.3 mg/dL (1.8-2.4); PHOSPHORUS 3.7 mg/dL (2.5-4.9)
[2018-09-27 06:37] LABS: ANION GAP 14.5 (8-16); CARBON DIOXIDE 24.3 mmol/L (21-32); CREATININE 0.7 mg/dL (0.6-1.3); POTASSIUM 3.8 mmol/L (3.5-5.1)
--- NOTE | 2018-09-27 07:31 | NUR ---
ENDORSED CARE AT BEDSIDE WITH CANDELARIA WHITLOCK, PATIENT IN STABLE CONDITION.
[2018-09-27] MEDS: BUDESONIDE 0.5 MG/2 ML NEBU INH SCH (07:47)
[2018-09-27] MEDS: ALBUTEROL SULFATE/IPRATROPIU 3 ML SOL IH SCH ×2 (07:47→14:55)
[2018-09-27 08:00] VITALS: BP 102/59
[2018-09-27 08:16] LABS: BASOPHILS % (MANUAL) 0 % (0-2); EOSINOPHILS % (MANUAL) 0 % (0-4); LYMPHOCYTES % (MANUAL) 10 % (20-46); MONOCYTES % (MANUAL) 4 % (5-12)
[2018-09-27] MEDS: LACTOBACILLUS RHAMNOSUS GG 1 EACH CAP PO SCH (09:38)
[2018-09-27] MEDS: POLYVINYL ALCOHOL 1.4% OP 15 ML SOL OP SCH (09:38)
--- NOTE | 2018-09-27 11:44 | NUR ---
OFF SUPPLEMENTAL OXYGEN AT THIS TIME WEAN TOLERATED SUGAR PLANTATION MANAGER TO MONITOR PATIENT SITTING IN CHAIR AWAKE AND ALERT VERBALLY RESPONSIVE
--- NOTE | 2018-09-27 12:09 | NUR ---
PT WAS TAKEN OFF O2 BY RT TO SEE IF PT CAN BE WEENED. PT O2 SAT WAS 84-85%. PT WAS PUT BACK ON 2.5 LPM VIA NC. PT DENIED FEELING SHORT OF BREATH OR DIZZY. RT WAS NOTIFIED OF O2 SAT DROP, HE STATED TO KEEP HER BACK ON O2. PT O2 NOW BACK TO 91-92% ON 2.5 LPM.
[2018-09-27] MEDS ORDERED: METH4TAB3 PO (13:29)
[2018-09-27 16:00] VITALS: BP 103/61
--- NOTE | 2018-09-27 17:19 | NUR ---
Employment Security Officer Note: Director of Case Management/Employment Security Officer dept Laure spoke with Josh Torres from [facility] durable medical equipment, cell , office regarding arranging private payment/s made by [facility] to [facility] for patient�s home O2. Director Laure obtained approval from [facility] Administration to proceed with arrangements for home O2 until patient�s [facility] redistricted coverage converts to full scope [facility]. I spoke with patient and informed of above information. Patient speaks Tongan. I confirmed with patient her home address and phone number listed on face sheet, [address] [place] [phone], . No concerns or questions were voiced by patient. Home O2 referral was faxed to [facility].
[2018-09-27] MEDS ORDERED: PRED5TAB7 PO (20:55)
[2018-09-28 09:07] LABS: LD1 FRACTION 18 % (17-32); LD2 FRACTION 37 % (25-40); LD3 FRACTION 16 % (17-27); LD4 FRACTION 7 % (5-13)
[2018-09-28 12:21] LABS: LD5 FRACTION 22 % (4-20)
[2018-09-29 06:17] LABS: CK-BB 0 % (0); CK-MB 0 % (0-3); CK-MM 100 % (97-100)
[2018-10-18 09:23] LABS: ANTI-NUCLEAR ANTIBODY TITER SEE LCI REPORT (Negative)
== END 2018-09-27 18:34 | disposition home or self-care (01) | DRG 720 ==
LOC: MED 11:32 → MTU 14:01
PROVIDERS: ADMIT General Practice; ATTEND General Practice
DX: A41.9 Sepsis, unspecified organism (principal); J96.01 Acute respiratory failure with hypoxia; J84.9 Interstitial pulmonary disease, unspecified; E44.0 Moderate protein-calorie malnutrition; E87.8 Other disorders of electrolyte and fluid balance, not elsewhere classified; K75.81 Nonalcoholic steatohepatitis (NASH); E11.65 Type 2 diabetes mellitus with hyperglycemia; Z68.35 Body mass index [BMI] 35.0-35.9, adult; E83.39 Other disorders of phosphorus metabolism; E66.9 Obesity, unspecified; E87.6 Hypokalemia; E87.1 Hypo-osmolality and hyponatremia; K80.20 Calculus of gallbladder without cholecystitis without obstruction; E83.41 Hypermagnesemia; Z98.51 Tubal ligation status
CPT/HCPCS: 36415; 36600; 71045; 71046; 71275; 76705; 80048; 80053; 80202; 80305; 81001; 81003; 82085; 82103; 82140; 82150; 82550; 82552; 82803; 82948; 83036; 83605; 83615; 83625; 83690; 83735; 83880; 84100; 84436; 84443; 84479; 84484; 85025; 85610; 85651; 85730; 86038; 86140; 86160; 86635; 86702; 87040; 87045; 87070; 87081; 87086; 87205; 87804; 89055; 93005; 94640; 94660; 96361; 96365; 97110; 97116; 97164; 97530; 99291; J0456; J0696; J1644; J1815; J1885; J2001; J2185; J2405; J2543; J2920; J2930; J3370; J3480; J7030; J7060; J7613; J7620; J7626; J7644; Q0092; Q9967

== ENCOUNTER 2018-11-01 12:55 | Emergency (ER) | payer MEDICAID ==
[~2018-11-01] VITALS: Ht 162.6 cm; Wt 83.9 kg
[~2018-11-01 12:55] MED LIST: PRED5TAB7 PO
[2018-11-01 13:04] VITALS: BP 141/89
--- NOTE | 2018-11-01 13:07 | NUR ---
PT SENT TO ER LOBBY TO WAIT FOR AVAILABLE BED.
--- NOTE | 2018-11-01 15:52 | NUR ---
PT AMBULATED TO BED 12.
--- NOTE | 2018-11-01 16:00 | NUR ---
53y/f bib self with c/o cough and mid upper back pain. pt was discharged from here 09/27/18 with PNA, pt seen today at clinic and reports continued cough and mid upper back pain, CXR results sent with pt and a referral for further evaluation. pt is aaox4, vss at this time, bed down, bedrail up x 1, er md aware and notified of pt status. hx denies
[2018-11-01 17:33] VITALS: BP 130/75
== END 2018-11-01 17:34 | disposition home or self-care (01) ==
LOC: MED 12:55
DX: R05 Cough (principal); Z79.899 Other long term (current) drug therapy; Z98.51 Tubal ligation status
CPT/HCPCS: 71046; 99283

== ENCOUNTER 2018-11-05 16:40 | Inpatient (IN) | payer MEDICAID ==
[~2018-11-05] VITALS: Ht 162.6 cm; Wt 83.9 kg
[2018-11-05 16:43] VITALS: BP 128/76
--- NOTE | 2018-11-05 17:51 | NUR ---
PT AMBULATED TO BED 04.
--- NOTE | 2018-11-05 18:00 | NUR ---
C/O COUGH X 3 DAYS, PT REPORTS HAVING FEVER AT HOME, SORE THROAT. LUNG SOUNDS CLEAR & EQUAL BILAT, NO DISTRESS NOTED, PULSE OX 97% RA. PT IS AFEBRILE AT THIS TIME. COUGH IS DRY AND NON PRODUCTIVE. PT STATES SHE WAS HOSPITALIZED HERE AT [facility]. 1 MONTH AGO FOR PNEUMONIA AND HAS HAD A COUGH SINCE THEN, BUT IT HAS GOTTEN WORSE IN THE LAST COUPLE DAYS. DENIES N/V/D; SKIN IS PINK/WARM/DRY; AAOX4 WITH EVEN AND STEADY GAIT;HR EVEN AND REGULAR; PATIENT POSITIONED FOR COMFORT; HOB ELEVATED; BEDRAILS UP X1; BED DOWN. ER MD MADE AWARE OF PT STATUS.
--- NOTE | 2018-11-05 19:01 | NUR ---
Dr. Stern evaluating patient at bedside.
[2018-11-05] MEDS ORDERED: ACETAMIN/CODEINE 120/12MG-5ML 5 ML UDC PO ONE (19:05)
[2018-11-05] MEDS ORDERED: AZITHROMYCIN 500 MG in DEXTROSE 5% 250 ML IV ONE (20:40)
[2018-11-05] MEDS ORDERED: ONDANSETRON 4 MG/2 ML VIAL IVP PRN (20:55)
[2018-11-05] MEDS ORDERED: ZOLPIDEM 5 MG TAB PO PRN (20:55)
[2018-11-05] MEDS ORDERED: HYDROcodone/APAP 7.5/325 MG 1 TAB PO PRN (20:55)
[2018-11-05] MEDS ORDERED: ACETAMINOPHEN 325 MG TAB PO PRN (20:55)
[2018-11-05 21:06] LABS: BASOPHILS # (AUTO) 0.1 K/uL (0.00-0.22); BASOPHILS % (AUTO) 0.7 % (0.0-2.0); EOSINOPHILS # (AUTO) 0.1 K/uL (0-0.4); EOSINOPHILS % (AUTO) 0.5 % (0.0-4.0); HEMOGLOBIN 13.8 g/dL (12.0-16.0); LYMPHOCYTES # (AUTO) 2.2 K/uL (2.5-16.5); LYMPHOCYTES % (AUTO) 15.4 % (20.5-51.1); MEAN CORPUSCULAR HEMOGLOBIN 29 pg (27-31); MEAN CORPUSCULAR HGB CONC 33 g/dL (33-37); MEAN CORPUSCULAR VOLUME 89.4 fL (80-94); MONOCYTES # (AUTO) 1.2 K/uL (0.8-1.0); MONOCYTES % (AUTO) 8.8 % (1.7-9.3); NEUTROPHILS # (AUTO) 10.6 K/uL (1.8-7.7); NEUTROPHILS % (AUTO) 74.6 % (42.2-75.2); PLATELET COUNT (AUTO) 208 K/uL (140-450); RED BLOOD CELL COUNT(AUTO) 4.69 MIL/uL (4.20-5.40); RED CELL DISTRIBUTION WIDTH 16.4 % (11.6-13.7); WHITE BLOOD COUNT (AUTO) 14.2 K/uL (4.8-10.8)
--- NOTE | 2018-11-05 21:11 | NUR ---
REPORT GIVEN TO KEN WHITLOCK
[2018-11-05] MEDS ORDERED: cefTRIAXone 1,000 MG VIAL ONE (21:18)
[2018-11-05] MEDS ORDERED: AZITHROMYCIN 500 MG INJ VIAL IV ONE (21:19)
[2018-11-05 21:21] LABS: PROTHROMBIN TIME 10.1 secs (10.8-13.4)
[2018-11-05 21:23] LABS: ALBUMIN 3.8 g/dL (3.4-5.0); ANION GAP 16.4 (8-16); CARBON DIOXIDE 22.3 mmol/L (21-32); CREATININE 0.7 mg/dL (0.6-1.3); POTASSIUM 3.7 mmol/L (3.5-5.1); TOTAL BILIRUBIN 1.5 mg/dL (0.0-1.0)
[2018-11-05 21:34] LABS: MAGNESIUM 2.3 mg/dL (1.8-2.4); PHOSPHORUS 4.1 mg/dL (2.5-4.9)
--- NOTE | 2018-11-05 21:50 | NUR ---
REPORT GIVEN AND CARE TRANSFERED TO PRIYA RN ROOM 119A. TRANSFERED VIA GURNEY WITH O2 AT 2LPM. PT STABLE.
--- NOTE | 2018-11-05 21:50 | NUR ---
RECEIVED PT FROM ER VIA RIRI LAINEZ BELARUSIAN SPEAKER AAOX4 AMBULATORY PRESENTING DRY COUGH IV ON RT AC ZITHROMAX INFUSING WELL AT THIS TIME, ON TELEMETRY SR MRSA NARES PROTOCOL TAKEN AND SENT TO LAB, PT IS ORIENTED TO THE FLOOR CALL LIGHT WITHIN REACH
[2018-11-05] MEDS: NACL 0.9% 1,000 ML IV SCH (21:55)
[2018-11-05 22:00] VITALS: BP 112/64
[2018-11-05] MEDS: DOCUSATE SODIUM 100 MG GELCAP PO SCH (22:03)
[2018-11-05] MEDS ORDERED: guaiFENesin DM SUGAR FREE 100 MG/5 ML UDBTL PO PRN (22:15)
[2018-11-05] MEDS: guaiFENesin 600 MG TABER PO SCH (23:32)
[2018-11-06] VITALS: BP 106/59
--- NOTE | 2018-11-06 | NUR ---
PT ON TELEMETRY SR AND SHE IS ASSISTED TO TO THE RESTROOM VOIDING WELL, NOT SOB NOTED
--- NOTE | 2018-11-06 02:40 | NUR ---
CALLED AND SPOKE TO DR COLLIER REGARDING PT'S COUGH MEDICINE NOT AVAILABLE. HE SAID "OK, I'LL ORDER SOMETHING ELSE." Addendum: 11/07/18 at 0239 by Krysta Harvey RN NOTES FOR 11/06/18 2240.
[2018-11-06 04:00] VITALS: BP 93/57
--- NOTE | 2018-11-06 04:00 | NUR ---
SPONGE BATH GIVEN LILEN CHANGED, PT HAS BEEN HAVING DRY COUGH ON TELMETRY SR
[2018-11-06 06:29] LABS: BASOPHILS # (AUTO) 0.1 K/uL (0.00-0.22); BASOPHILS % (AUTO) 0.5 % (0.0-2.0); EOSINOPHILS # (AUTO) 0.1 K/uL (0-0.4); EOSINOPHILS % (AUTO) 1.2 % (0.0-4.0); HEMATOCRIT 37.7 % (36-48); HEMOGLOBIN 12.7 g/dL (12.0-16.0); LYMPHOCYTES # (AUTO) 2.3 K/uL (2.5-16.5); LYMPHOCYTES % (AUTO) 20.8 % (20.5-51.1); MEAN CORPUSCULAR HEMOGLOBIN 30 pg (27-31); MEAN CORPUSCULAR HGB CONC 34 g/dL (33-37); MEAN CORPUSCULAR VOLUME 89.3 fL (80-94); MONOCYTES # (AUTO) 1.2 K/uL (0.8-1.0); MONOCYTES % (AUTO) 10.8 % (1.7-9.3); NEUTROPHILS # (AUTO) 7.2 K/uL (1.8-7.7); NEUTROPHILS % (AUTO) 66.7 % (42.2-75.2); PLATELET COUNT (AUTO) 182 K/uL (140-450); RED BLOOD CELL COUNT(AUTO) 4.22 MIL/uL (4.20-5.40); WHITE BLOOD COUNT (AUTO) 10.8 K/uL (4.8-10.8)
--- NOTE | 2018-11-06 06:36 | NUR ---
PT AMBULATES TOT HE RESTROOM BUT VOIDING WELL SHE COULD NOT GIVE ME THE URINE SAMPLE
[2018-11-06 06:44] LABS: ANION GAP 11.4 (8-16); CARBON DIOXIDE 25.9 mmol/L (21-32); CREATININE 0.6 mg/dL (0.6-1.3); POTASSIUM 3.3 mmol/L (3.5-5.1)
[2018-11-06 06:52] LABS: CHOL/HDL RATIO 5.3 (1-4.5); MAGNESIUM 2.1 mg/dL (1.8-2.4); PHOSPHORUS 4.2 mg/dL (2.5-4.9)
--- NOTE | 2018-11-06 07:35 | NUR ---
RECEIVED REPORT FORM PM NURSE AT BEDSIDE. PT LYING ON HER BED. AOX4, COMMUNICATING WELL. PT HAS RT AC 20G, IVF TKO. HAS THE DRY COUGH. NO SIGN OF DISTRESS NOTED. CALL LIGHT WITHIN PT REACH. INFORMED TO USE CALL LIGHT FOR ANY HELP.VERBLASIED UNDERSTANDING. PT IS ON O2 VIA NC 2 LPM . WILL CONTINUE TO MONITOR PT.
[2018-11-06 08:00] VITALS: BP 98/58
--- NOTE | 2018-11-06 08:38 | NUR ---
PATIENT HAS BEEN SCREENED AND CATEGORIZED HIGH NUTRITION RISK. PATIENT WILL BE SEEN WITHIN 1-2 DAYS OF ADMISSION. 11/06/18-11/07/[address]
[2018-11-06] MEDS: LACTOBACILLUS RHAMNOSUS GG 1 EACH CAP PO SCH (08:47)
[2018-11-06] MEDS: guaiFENesin 600 MG TABER PO SCH ×2 (08:47→20:18)
[2018-11-06] MEDS: DOCUSATE SODIUM 100 MG GELCAP PO SCH ×2 (08:48→20:18)
--- NOTE | 2018-11-06 08:53 | NUR ---
ADMINISTERED MEDS TO PT ORDERED. TOLERATED WELL. NO SIGN OF DISTRESS NOTED. OFFERED PT WITH THE CHUCKS. PT REFUSED TO EAT BREAKFAST. STATES NO APPETITE AT THIS TIME.
[2018-11-06 10:16] LABS: APPEARANCE,URINE CLEAR (CLEAR); BILIRUBIN,URINE NEGATIVE (NEGATIVE); BLOOD, URINE TRACE-I (NEGATIVE); COLOR,URINE YELLOW (YELLOW); LEUKOCYTE ESTERASE ,URINE TRACE (NEGATIVE); NITRITE, URINE NEGATIVE (NEGATIVE); PH,URINE 6.5 (5.0-9.0); UGLUCOSE NEGATIVE (NEGATIVE)
[2018-11-06 10:24] LABS: RBC,URINE 0-5 /HPF (0-5); WBC,URINE 0-5 /HPF (0-5)
[2018-11-06 10:27] LABS: BARBITURATE, URINE NEG. ng/ml (NEG <=200); BENZODIAZEPINE, URINE NEG. ng/mL (NEG <=200); CANNABINOID, URINE NEG. ng/mL (NEG <=50); COCAINE, URINE NEG. ng/mL (NEG <=300); OPIATE, URINE POS. ng/mL (NEG <=2000); PHENCYCLIDINE SCREEN,URINE NEG. ng/mL (NEG <=25)
--- NOTE | 2018-11-06 11:24 | NUR ---
CHECKED ON THE PT. HEP LOCKED PT GOING TO RADIOLOGY FOR X-RAY. PT STATES IS COMFORTABLE. NO DISTRESS NOTED. WILL CONTINUE TO MONITOR PT.
[2018-11-06] MEDS ORDERED: POTASSIUM CHLORIDE 10 MEQ TABER PO SCH (11:30)
--- NOTE | 2018-11-06 11:50 | NUR ---
pt instructed on giving sputum sample unable to give at this time will recheck pt later
[2018-11-06 12:00] VITALS: BP 100/57
--- NOTE | 2018-11-06 12:00 | NUR ---
PT RESTING COMFORTABLY IN HER BED. FAMILY AT THE BEDSIDE. ADMINISTERED POTASSIUM ORAL TAB ORDERED. PT KEPT NPO FOR US OF ABD. NO SIGN OF DISTRESS NOTED. INFORMED PT TO LET KNOW ONCE US OF ABDOMEN IS DONE. VERBALISED UNDERSTANDING. WILL CONTINUE TO MONITOR PT.
--- NOTE | 2018-11-06 13:56 | NUR ---
11/06/18 RD INITIAL ASSESSMENT COMPLETED PLEASE REFER TO NUTRITION ASSESSMENT UNDER CARE ACTIVITY FOR ESTIMATED NUTRITIONAL NEEDS. 1. CONTINUE CCHO 60 GM DIET TOLERATED 2. RD TO PROVIDE CONSISTENT CARBOHYDRATE MEAL PLAN 3. RD TO FOLLOW-UP 5-7 DAYS, LOW RISK REGINA CARMICHAEL, RD
--- NOTE | 2018-11-06 14:23 | NUR ---
Duc[employer] Polisher Note: Patient does not currently have home O2 at this time. Per Amita Dutta from Admitting Dept ext [phone], patient has full scope Medi-[employer] coverage, not Medi-[employer] restricted.
[2018-11-06] MEDS ORDERED: BISACODYL 10 MG SUPP RC SCH (15:30)
[2018-11-06 16:00] VITALS: BP 108/51
--- NOTE | 2018-11-06 16:00 | NUR ---
PT REFUSED RECTAL SUPPOSITORY, STATES HAD BM TODAY. PT STATES BM TO BE NORMAL, SOFT FORMED.
--- NOTE | 2018-11-06 19:35 | NUR ---
ENDORSED PT TO PM NURSE AT BEDSIDE. PT STABLE.
--- NOTE | 2018-11-06 19:59 | NUR ---
CALLED AND SPOKE TO DR COLLIER REGARDING PT'S COUGHING AND THAT SHE DOESN'T HAVE PRN FOR COUGH. HE SAID HE'LL ORDER PHENERGAN DM. WILL INFORM PT.
[2018-11-06] MEDS ORDERED: PROMETHAZINE DM 6.25/15MG-5ML ORASYR PO PRN (20:00)
--- NOTE | 2018-11-06 20:15 | NUR ---
SEEN PT AWAKE, ALERT AND ORIENTED, SPEAKS MOSTLY KOS[place]. RT AT BEDSIDE ASSESSING PT. INITIAL ASSESSMENT DONE. PT COUGHING A LOT AND INFORMED HER MD WILL ORDER COUGH MEDICINE FOR HER. VITAL SIGNS CHECKED. PT'S O2SAT INITIALLY WAS 91% ON 2L VIA NC. PT ENCOURAGED TO USE IS TO HELP HER WITH BETTER BREATHING. PT VERBALIZED UNDERSTANDING. RT RECOMMENDED THAT PT MIGHT BENEFIT FROM PRN BREATHING TREATMENT. WILL NOTIFY MD.
[2018-11-06] MEDS: AZITHROMYCIN 250 MG TAB PO SCH (20:18)
--- NOTE | 2018-11-06 20:20 | NUR ---
CALLED AND SPOKE TO DR COLLIER REGARDING PT'S SHORTNESS OF BREATHE AND THAT SHE MIGHT NEED PRN BREATHING TREATMENT. HE SAID "I'LL COME AND SEE HER." INFORMED PT AND SAID "OK". MEDICATIONS GIVEN ORDERED W/ TEACHINGS. PT VERBALIZED UNDERSTANDING. CALL LIGHT W/IN REACH. SNACKS PROVIDED.
[2018-11-06 20:30] VITALS: BP 111/62
--- NOTE | 2018-11-06 20:30 | NUR ---
DR COLLIER CAME AND ASSESSED THE PT AND SAID, "SHE'S CLEAR AND SHE DOESN'T REALLY NEED BREATHING TREATMENT." "IT'S PROBABLY BECAUSE OF HER COUGH." CHRISTINA,RT AT BEDSIDE AND WAS TOLD OF HIS FINDINGS.
[2018-11-06] MEDS: NACL 0.9% 1,000 ML IV SCH (20:53)
--- NOTE | 2018-11-06 21:00 | NUR ---
PT CALLED AND COMPLAINING OF HER IV. ASSESSED IV SITE AND APPEARS OK. SLOWED THE IV RATE AND WILL APPLY ICE PACK. PT VERBALIZED UNDERSTANDING. ASKED PT HOW'S HER COUGH, SHE SAID "OK RIGHT NOW." TOLD HER TO CALL WHEN HER COUGH STARTS TO COME BACK SO SHE CAN BE GIVEN COUGH SYRUP. PT VERBALIZED UNDERSTANDING.
[2018-11-06] MEDS: guaiFENesin DM 200/20 MG-10 ML 10 ML UDC PO PRN (23:10)
--- NOTE | 2018-11-06 23:10 | NUR ---
SEEN PT AWAKE. VITAL SIGNS CHECKED. PT STILL COUGHING A LOT. PT GIVEN ROBITUSSIN DM ORDERED. TEACHINGS PROVIDED. PT VERBALIZED UNDERSTANDING. PT DENIES ANY OTHER NEEDS. CALL LIGHT W/IN REACH.
[2018-11-07] VITALS: BP 93/51
--- NOTE | 2018-11-07 02:05 | NUR ---
SEEN PT SLEEPING COMFORTABLY. CALL LIGHT W/IN REACH.
--- NOTE | 2018-11-07 04:20 | NUR ---
SEEN PT AWAKE. VITAL SIGNS CHECKED. PT STILL COUGHING A LOT. WILL GIVE ROBITUSSIN PRN FOR COUGH.
[2018-11-07] MEDS: guaiFENesin DM 200/20 MG-10 ML 10 ML UDC PO PRN ×2 (04:24→11:30)
[2018-11-07 04:30] VITALS: BP 103/65
[2018-11-07 06:46] LABS: BASOPHILS % (AUTO) 0.5 % (0.0-2.0); EOSINOPHILS # (AUTO) 0.4 K/uL (0-0.4); EOSINOPHILS % (AUTO) 4.2 % (0.0-4.0); HEMATOCRIT 38.1 % (36-48); HEMOGLOBIN 12.7 g/dL (12.0-16.0); LYMPHOCYTES # (AUTO) 2.4 K/uL (2.5-16.5); LYMPHOCYTES % (AUTO) 27.7 % (20.5-51.1); MEAN CORPUSCULAR HEMOGLOBIN 30 pg (27-31); MEAN CORPUSCULAR HGB CONC 33 g/dL (33-37); MEAN CORPUSCULAR VOLUME 89.5 fL (80-94); MONOCYTES # (AUTO) 1.2 K/uL (0.8-1.0); MONOCYTES % (AUTO) 13.6 % (1.7-9.3); NEUTROPHILS # (AUTO) 4.7 K/uL (1.8-7.7); PLATELET COUNT (AUTO) 196 K/uL (140-450); RED BLOOD CELL COUNT(AUTO) 4.26 MIL/uL (4.20-5.40); RED CELL DISTRIBUTION WIDTH 16.4 % (11.6-13.7); WHITE BLOOD COUNT (AUTO) 8.6 K/uL (4.8-10.8)
--- NOTE | 2018-11-07 07:12 | NUR ---
REPORT GIVEN TO DAYSHIFT NURSE.
--- NOTE | 2018-11-07 07:13 | NUR ---
RECEIVED REPORT FROM PM NURSE AT BEDSIDE. PT SITTNG ON HER BED. HAS SOME INTERMITTENT COUGH. STATES COUGH IS GETTING BETTER THAN YESTERDAY, HURTS HER CHEST SOMETIMES DUE TO EXCESSIVE COUGHING. IV SITE INTACT. IVF INFUSING WELL. NO SIGN OF DISTRESS NOTED . CALL LIGHT WITHIN PT REACH. WILL CONTINUE TO MONITOR PT.
[2018-11-07 07:17] LABS: ANION GAP 16.5 (8-16); CREATININE 0.6 mg/dL (0.6-1.3); POTASSIUM 3.5 mmol/L (3.5-5.1)
[2018-11-07 07:35] LABS: MAGNESIUM 2.4 mg/dL (1.8-2.4); PHOSPHORUS 4.4 mg/dL (2.5-4.9)
[2018-11-07 08:00] VITALS: BP 95/59
[2018-11-07 08:15] LABS: HEPATITIS A ANTIBODY IGM Negative (Negative); HEPATITIS B CORE AB TOTAL Negative (Negative); HEPATITIS B SURFACE ANTIBODY Non Reactive (.); HEPATITIS B SURFACE ANTIGEN Negative (Negative)
[2018-11-07] MEDS: DOCUSATE SODIUM 100 MG GELCAP PO SCH ×2 (08:34→21:55)
[2018-11-07] MEDS: LACTOBACILLUS RHAMNOSUS GG 1 EACH CAP PO SCH (08:34)
[2018-11-07] MEDS: guaiFENesin 600 MG TABER PO SCH ×2 (08:35→21:55)
[2018-11-07] MEDS ORDERED: CALCIUM CARBONATE 500 MG TAB PO SCH (09:00)
--- NOTE | 2018-11-07 09:00 | NUR ---
ADMINISTERED MEDS TO PT ORDERED. COUGH MEDS PROVIDED. FAMILY AT THE BEDSIDE. NO DISTRESS NOTED. ALL SAFETY MEASURE IN PLACE. INFORMED PT TO LET KNOW IF COUGHING MORE. WILL MEDICATE WITH OTHER PRN MEDS FOR COUGH WELL. CALL LIGHT WITHIN PT REACH. WILL CONTINUE TO MONITOR PT.
--- NOTE | 2018-11-07 11:31 | NUR ---
PT HAVING DRY COUGH. ASKING FOR HER MEDS. ADMINISTERED COUGH MEDS TO THE PT. PROVIDED TIFFANIE, HELPED WITH MAKING HER BED. WILL CONTINUE TO MONITOR PT.
[2018-11-07 12:00] VITALS: BP 99/58
--- NOTE | 2018-11-07 13:05 | NUR ---
AMBULATED PATIENT IN THE HALLWAY TWICE AND CHECK O2 SAT 94% ON RA. NO SOB NOTED.
[2018-11-07 16:00] VITALS: BP 99/102
--- NOTE | 2018-11-07 19:05 | NUR ---
ENDORSED PT TO PM NURSE AT BEDSIDE. PT IN STABLE CONDITION.
--- NOTE | 2018-11-07 19:10 | NUR ---
Received endorsement from AM shift RN; patient is watching TV with . Patient is A/Ox4, able to make needs known, Swedish speaking but can understand Tajik. Introduced self, updated board. No SOB or distress noted, on room air. IV site on right antecubital, 20 gauge, with IVF running at 10mL/hr. Skin intact. Bed in the lowest position, call light within reach. Initial assessment done. Will continue to monitor.
[2018-11-07 20:00] VITALS: BP 94/58
--- NOTE | 2018-11-07 20:20 | NUR ---
Vitals taken, due meds given, tolerated well. Will continue to monitor.
[2018-11-07] MEDS: AZITHROMYCIN 250 MG TAB PO SCH (21:54)
[2018-11-07] MEDS: NACL 0.9% 1,000 ML IV SCH (21:57)
--- NOTE | 2018-11-07 22:40 | NUR ---
Checks made, patient is watching. No distress noted.
[2018-11-08] VITALS: BP 93/59
--- NOTE | 2018-11-08 00:10 | NUR ---
Vitals taken, patient asleep, visible chest rise and fall noted.
[2018-11-08] MEDS: guaiFENesin DM 200/20 MG-10 ML 10 ML UDC PO PRN (00:12)
--- NOTE | 2018-11-08 02:10 | NUR ---
Rounds done, no distress noted.
[2018-11-08 04:00] VITALS: BP 102/56
--- NOTE | 2018-11-08 04:30 | NUR ---
Vitals taken, patient is asleep, no distress noted.
--- NOTE | 2018-11-08 05:20 | NUR ---
Frequent checks made, patient asleep, visible chest rise and fall noted.
--- NOTE | 2018-11-08 07:25 | NUR ---
Endorsed patient to AM shift for continuity of care; patient in stable condition.
--- NOTE | 2018-11-08 07:30 | NUR ---
RECEIVED REPORT FORM LOFT WORKER PILE DRIVING NURSE AT BEDSIDE. PT IS AAOX4, KOREAN SPEAKING. IV CATH, PATENT AND INTACT. PT HAS DRY COUGH. NO SIGN OF DISTRESS NOTED. CALL LIGHT WITHIN PT REACH. PLAN OF CARE DISCUSSED, PT VERBALIZED UNDERSTANDING. WILL CONTINUE TO MONITOR.
--- NOTE | 2018-11-08 07:55 | NUR ---
VITALS TAKEN, PT SLEEPING NO DISTRESS NOTED.
[2018-11-08 08:00] VITALS: BP 104/56
[2018-11-08] MEDS ORDERED: ALBU0.0912 INH (08:49)
[2018-11-08] MEDS: LACTOBACILLUS RHAMNOSUS GG 1 EACH CAP PO SCH (08:54)
[2018-11-08] MEDS: DOCUSATE SODIUM 100 MG GELCAP PO SCH (08:54)
[2018-11-08] MEDS: guaiFENesin 600 MG TABER PO SCH (08:54)
[2018-11-08] MEDS ORDERED: LACT1.4C PO (11:49)
[2018-11-08] MEDS ORDERED: AZIT250T3 PO (11:49)
[2018-11-08] MEDS ORDERED: AMOX-1000 PO (11:49)
[2018-11-08 12:00] VITALS: BP 101/63
[2018-11-08] MEDS ORDERED: PNEUMOCOCCAL VACCINE 23 MCG/0.5 ML VIAL IMVAC SCH (12:25)
[2018-11-08] MEDS ORDERED: INFLUENZA VIRUS VACCINE QUAD 0.5 ML SYR IMVAC PRN (12:25)
[2018-11-08 16:00] VITALS: BP 106/59
--- NOTE | 2018-11-08 16:10 | NUR ---
VITALS TAKEN, NO DISTRESS NOTED.
--- NOTE | 2018-11-08 16:30 | NUR ---
PT DISCHARGED PER MD ORDER. DISCHARGE INSTRUCTION AND MEDICATIONS TEACHING GIVEN. KAMLESH RAMEY WAS ABLE TO TEACH PT IN GABONESE. PT VERBALIZED UNDERSTANDING. MADE PT AWARE TO PRESCHOOL ASSISTANT TEACHER HER RX AT [facility] IN [place] TODAY. PT VERBALIZED UNDERSTANDING. IV DC'D, TIP INTACT, PRESSURE APPLIED. PT LEFT WITH HER IN STABLE CONDITION.
== END 2018-11-08 16:30 | disposition home or self-care (01) | DRG 720 ==
LOC: MED 16:40 → MTU 20:53
PROVIDERS: ADMIT General Practice; ATTEND General Practice
PROC: 3E0234Z Introduction of Serum, Toxoid and Vaccine into Muscle, Percutaneous Approach (ICD-10-PCS; principal; 2018-11-08)
PROC: 3E02340 Introduction of Influenza Vaccine into Muscle, Percutaneous Approach (ICD-10-PCS; 2018-11-08)
DX: A41.9 Sepsis, unspecified organism (principal); J18.9 Pneumonia, unspecified organism; K75.81 Nonalcoholic steatohepatitis (NASH); E66.9 Obesity, unspecified; R73.03 Prediabetes; E80.6 Other disorders of bilirubin metabolism; E55.9 Vitamin D deficiency, unspecified; E78.5 Hyperlipidemia, unspecified; N39.0 Urinary tract infection, site not specified; E87.1 Hypo-osmolality and hyponatremia; E87.6 Hypokalemia; E05.90 Thyrotoxicosis, unspecified without thyrotoxic crisis or storm; M47.814 Spondylosis without myelopathy or radiculopathy, thoracic region; Z68.31 Body mass index [BMI] 31.0-31.9, adult; Z71.3 Dietary counseling and surveillance; Z23 Encounter for immunization
CPT/HCPCS: 36415; 71045; 71250; 76705; 80048; 80053; 80305; 81001; 82103; 82150; 83605; 83690; 83735; 83880; 84100; 84484; 85025; 85610; 85730; 86704; 86706; 86708; 86709; 86803; 87040; 87081; 87086; 87205; 87340; 87804; 90732; 93005; 93970; 96365; 97161-GP; 99285; J0456; J0696; J1644; J7030; J7060; Q0092

== ENCOUNTER 2019-06-03 20:30 | Emergency (ER) | payer MEDICAID, OTHER ==
[~2019-06-03] VITALS: Ht 162.6 cm; Wt 86.2 kg
[~2019-06-03 20:30] MED LIST changes: +ALBU0.0912 INH; +AMOX-1000 PO; +AZIT250T3 PO; +LACT1.4C PO; -PRED5TAB7 PO
[2019-06-03 20:40] VITALS: BP 122/79
--- NOTE | 2019-06-03 20:42 | NUR ---
PT TAKEN TO ER BED 10
--- NOTE | 2019-06-03 20:45 | NUR ---
PATIENT PRESENTS TO ED WITH COUGH, FEVER,BODYACHES, H/A, SINCE TUESDAY . PT STATES SHE HAS HAD A COUGH X 1 YEAR. PT STATES PAIN WHEN COUGHING . DENIES N/V/D; SKIN IS PINK/WARM/DRY; AAOX4 WITH EVEN AND STEADY GAIT; LUNGS CLEAR BL; HR EVEN AND REGULAR; PT DENIES ANY FEVER, CP OR SOB, PATIENT STATES PAIN OF 8/10 AT THIS TIME; VSS; PATIENT POSITIONED FOR COMFORT; HOB ELEVATED; BEDRAILS UP X2; BED DOWN. ER MD MADE AWARE OF PT STATUS.
--- NOTE | 2019-06-03 20:45 | NUR ---
NASAL SWAB FOR INFLUENZA A &B DONE AND SENT TO LAB
[2019-06-03] MEDS ORDERED: ACETAMINOPHEN 325 MG TAB PO ONE (20:50)
[2019-06-03] MEDS ORDERED: IBUPROFEN 600 MG TAB PO ONE (21:10)
[2019-06-03] MEDS ORDERED: LEVOFLOXACIN 750 MG TAB PO ONE (21:40)
--- NOTE | 2019-06-03 21:45 | NUR ---
NO CHANGES FROM PREVIOUS ASSESSMENT. VSS. WILL CONTINUE TO MONITOR.
[2019-06-03] MEDS ORDERED: PROMETH/CODEINE 6.25-10MG/5ML 5 ML UDC PO ONE (21:50)
--- NOTE | 2019-06-03 22:04 | NUR ---
Patient discharged with v/s stable. Written and verbal after care instructions given and explained. Patient alert, oriented and verbalized understanding of instructions. Ambulatory with steady gait. All questions addressed prior to discharge. ID band removed. Patient advised to follow up with PMD. Rx of IBUPROFEN, LEVAQUIN, AND PROMETHAZINE given. Patient educated on indication of medication including possible reaction and side effects. Opportunity to ask questions provided and answered.
[2019-06-03 22:05] VITALS: BP 124/76
== END 2019-06-03 22:04 | disposition home or self-care (01) ==
LOC: MED 20:30
DX: J18.9 Pneumonia, unspecified organism (principal); J45.909 Unspecified asthma, uncomplicated; Z79.899 Other long term (current) drug therapy
CPT/HCPCS: 71045; 87804; 99284; Q0092

== ENCOUNTER 2019-06-15 11:42 | Emergency (ER) | payer OTHER ==
[~2019-06-15] VITALS: Ht 162.6 cm; Wt 86.2 kg
[2019-06-15 11:48] VITALS: BP 110/52
--- NOTE | 2019-06-15 12:02 | NUR ---
54 Y/O FEMALE PRESENTING WITH A C/C OF PRESSURE PAIN IN THE OCCIPITAL REGION OF THE HEAD RADIATING TO THE UPPER BACK. NO NEURO DEFICITS NOTED. PAIN 01/01, HAS TAKEN IBUPROFREN LAST NIGHT BUT MINIMAL RELIEF. PER PATIENT HAS HAD THIS PROBLEMS FOR MONTHS. HAS NO MEDICAL HX. PER PATIENT HAD A RECENT PNA AND ITS CURRENTLY BEING TREATED. DENIES N/V/D. SIDE RAIL X1.
--- NOTE | 2019-06-15 12:09 | NUR ---
DR JIMENEZ AT BEDSIDE
--- NOTE | 2019-06-15 12:30 | NUR ---
XRAY AT BEDSIDE
--- NOTE | 2019-06-15 13:11 | NUR ---
PT ALERT AND AWAKE, SITTING IN BED
[2019-06-15 13:17] VITALS: BP 123/71
--- NOTE | 2019-06-15 13:17 | NUR ---
Patient discharged with v/s stable. Written after care instructions given REGARDING COUGH AND MUSCLE STRAIN IN [place]. VERBALLY EXPLAINED IN MONGOLIAN. Patient alert, oriented and verbalized understanding of instructions. Ambulatory with steady gait. All questions addressed prior to discharge. ID band removed. Patient advised to follow up with PMD. Rx of CODEINE/PROMETHAZINE HYDROCHLORIDE AND VALIUM given. Patient educated on indication of medication including possible reaction and side effects. Opportunity to ask questions provided and answered. PT GIVEN EXCUSE FOR WORK THROUGH THE 06/18/19
== END 2019-06-15 13:17 | disposition home or self-care (01) ==
LOC: MED 11:42
DX: M62.830 Muscle spasm of back (principal); J45.909 Unspecified asthma, uncomplicated; Z79.899 Other long term (current) drug therapy; Z79.2 Long term (current) use of antibiotics; Z79.51 Long term (current) use of inhaled steroids
CPT/HCPCS: 71045; 99283; Q0092

== ENCOUNTER 2021-10-13 04:00 | Emergency (ER) | payer MEDICAID, OTHER ==
[~2021-10-13] VITALS: Ht 162.6 cm; Wt 86.2 kg
[2021-10-13 04:09] VITALS: BP 129/75
--- NOTE | 2021-10-13 04:22 | NUR ---
56 YO/F BIB SELF W C/O CONSANT COUGH X2 MONTHS, +SOB "WHEN WALKING OR TALKING ALOT,"+THROAT AND CHEST IRRITATION FROM COUGHING. PT DENIES ANY PAIN, CHEST PAIN, FEVERS, CHILLS, N/V/D. PT REPORTS SEEING PCP FOR COUGH X2 MONTHS AGO AND GIVEN ABX BUT COUGH HAS NOT IMPROVED. PT ALSO REPORTS TAKING PROMETHAZINE W/O RELIEF. PT SITTING IN BED LOCKED IN LOWEST POSITION. PT O2 SAT 07% ON RA. WILL CONTNIUE TO MONITOR. ERMD AT BEDSIDE ASSESSING PT. PMH:DENIES ALLERGIES: CATS AND DOGS
[2021-10-13] MEDS ORDERED: BENZONATATE 100 MG CAPLF PO ONE (05:05)
[2021-10-13] MEDS ORDERED: levoFLOXacin 750 MG TAB PO ONE (05:10)
[2021-10-13] MEDS ORDERED: LEVO750T51 PO (05:24)
[2021-10-13 05:30] VITALS: BP 129/75
--- NOTE | 2021-10-13 05:30 | NUR ---
Patient discharged with v/s stable. Written and verbal after care instructions given and explained. Patient alert, oriented and verbalized understanding of instructions. Ambulatory with steady gait. All questions addressed prior to discharge. ID band removed. Patient advised to follow up with PMD. Rx of LEVOFLOXACIN given. Patient educated on indication of medication including possible reaction and side effects. Opportunity to ask questions provided and answered.
== END 2021-10-13 05:30 | disposition home or self-care (01) ==
LOC: MED 04:00
DX: J18.9 Pneumonia, unspecified organism (principal); J45.909 Unspecified asthma, uncomplicated
CPT/HCPCS: 71045; 99283; Q0092